=== PATIENT | female | born 1955 | race Caucasian/White ===

== ENCOUNTER 2023-04-09 12:58 | Outpatient (REF) | payer OTHER, SELFPAY ==
[2023-04-09 14:36] LABS: MANUAL DIFF FLAG NO
[2023-04-09 15:17] LABS: Basophils Percent Auto 0.4 % (0-2); Eosinophils Absolute Auto 0.1 X10*3/uL (0.0-0.4); Eosinophils Percent Auto 0.6 % (0-4); Hematocrit 36.5 % (37.0-47.0); Hemoglobin 11.6 g/dl (12.0-16.0); Imm Gran Abs Auto 0.03 X10*3/uL (0.00-0.03); Imm Gran Pct Auto 0.3 % (0.0-0.4); Lymphocytes Absolute Auto 1.7 X10*3/uL (1.2-4.9); Lymphocytes Percent Auto 18.2 % (20-40); Mean Corpuscular HGB Conc 31.8 g/dl (31.0-35.0); Mean Corpuscular Hemoglobin 31.2 pg (27.0-33.0); Mean Corpuscular Volume 98.1 fL (80.0-98.0); Mean Platelet Volume 8.8 fL (9.4-12.3); Monocytes Absolute Auto 0.6 X10*3/uL (0.1-1.2); Monocytes Percent Auto 6.4 % (2-11); Neutrophils Absolute Auto 7.1 x10*3/uL (2.0-8.3); Neutrophils Percent Auto 74.1 % (45-73); Platelet Count 353 X10*3/uL (160-400); Red Blood Count 3.72 X10*6/uL (4.20-5.50); Red Cell Distribution Width 13.2 % (11.0-16.0); White Blood Count 9.6 X10*3/uL (4.8-10.8)
[2023-04-09 16:13] LABS: Erythrocyte Sedimentation Rate 71 MM/HR (0-20)
[2023-04-09 16:28] LABS: Alanine Aminotransferase 18 U/L (0-31); Albumin Level 4.3 g/dL (3.5-5.0); Alkaline Phosphatase 94 U/L (39-117); Anion Gap 17 (12-20); Aspartate Amino Transferase 19 U/L (5-31); Bilirubin Total 0.4 mg/dL (0.0-1.0); Blood Urea Nitrogen 32 mg/dL (9-16); C Reactive Protein 1.15 mg/dL (< or = 0.50); Calcium 10.9 mg/dL (8.4-10.2); Carbon Dioxide 23 mmol/L (22-29); Chloride 101 mmol/L (96-108); Estimated Glomerular Filt Rate 47; Glucose Random 97 mg/dL (60-115); Potassium 4.6 mmol/L (3.3-5.1); Sodium 136 mmol/L (135-145); Total Protein 7.8 g/dL (6.5-8.0)
[2023-04-10 08:23] LABS: HBS Num1 5.65 mIU/mL (0-7.99); HBc Num1 0.07 S/CO (0.00-0.79); HBsAGNum1 0.42 S/CO (0.00-0.99); Hepatitis A Antibody IgM 0.17 Index (0-0.79); Hepatitis B Core Antibody Nonreactive (Nonreactive); Hepatitis B Surface Antigen Negative (Negative); ~HepC Num1 0.06 S/CO (0.00-0.79); ~Hepatitis A Antibody IgM Nonreactive (Nonreactive); ~Hepatitis B Surface Antibody NONREACTIVE (Nonreactive); ~Hepatitis C Antibody Nonreactive (Nonreactive)
[2023-04-12 07:44] LABS: TS Negative Control Passed; TS Panel A 0; TS Panel B 0; TS Positive Control Passed; TSpotTB Negative (Negative)
[2023-04-14 12:43] LABS: Prot Elec - Albumin 4.4 g/dL (3.8-4.8); Prot Elec - Alpha1 0.4 g/dL (0.2-0.3); Prot Elec - Alpha2 0.8 g/dL (0.5-0.9); Prot Elec - Beta 1 0.6 g/dL (0.4-0.6); Prot Elec - Beta 2 0.6 g/dL (0.2-0.5); Prot Elec - Total Protein 7.7 g/dL (6.1-8.1)
[2023-04-15 10:48] LABS: IgA 695 mg/dL (70-320); IgG 931 mg/dL (600-1540); IgM 82 mg/dL (50-300)
== END 2023-04-09 12:59 | disposition home or self-care (01) ==
LOC: HO.LAB 12:58
PROVIDERS: PCP Family Medicine; Visit Provider Student in an Organized Health Care Education/Training Program
DX: Z11.59 Encounter for screening for other viral diseases (principal); Z11.7 Encounter for testing for latent tuberculosis infection; L40.50 Arthropathic psoriasis, unspecified; Z79.620 Long term (current) use of immunosuppressive biologic; Z72.89 Other problems related to lifestyle
CPT/HCPCS: 80053; 80145; 82784; 83520; 84165; 85025; 85652; 86140; 86334; 86481; 86704; 86706; 86709; 86803; 87340

== ENCOUNTER 2023-05-20 11:07 | Outpatient (AMB) | payer OTHER, SELFPAY ==
[2023-05-20 11:12] VITALS: BP 134/68; PULSE 83; TEMP 36.3; O2SAT 96; BMI 40.3
--- NOTE | 2023-05-20 11:12 | MHC.OFFVIS ---
Intake Vital Signs 05/20/23 11:12 Height 5 ft 4 in Weight 234 lb 12.677 oz BMI 40.3 BP 134/68 Blood Pressure Location Rt brachial Position Sitting Pulse 83 Pulse Source Pulse Oximeter Temp 97.3 F Temp Source Skin Pulse Oximetry (%) 96 Intake Visit Reasons: PsA Intake Note: Pt seen today for PsA follow up and test results. Completed prednisone taper and states she felt great. Reports low grade temp in the afternoons. Woods Superintendent Required: No Accompanied by: Self / Same As Patient Allergies amoxicillin [From Augmentin] Allergy (Verified 05/20/23 11:) Rash clavulanic acid [From Augmentin] Allergy (Verified 05/20/23:) Rash pravastatin Adverse Reaction (Verified 05/20/23:) Muscle Weakness HPI HPI Comments History of Present Illness Details 67-year-old female with psoriasis and psoriatic arthritis returns for follow-up. On Humira every other week and methotrexate subcutaneously 50 mg weekly. She stated that since switching methotrexate to subcutaneous, her GI symptoms resolved. She states that she is not doing well overall continues to have pain in both thumbs, pain in both feet. Stated that prednisone taper provided at least 90% relief. She stated that since 2020 she has been having recurrent nasal ulcers that are painful. Initial history: This is a 67-year-old female with psoriatic arthritis who presents as a new patient. Her previous plant and maintenance technician left the practice Patient stated that she was diagnosed with psoriasis since her 20s affecting her ears and scalp. She had an autoimmune arthritis for about 20 years. She used to follow-up at the [facility]. She used to take NSAIDs. And she received numerous injections. She was evaluated by Dr. To over the last 2-3 years and she was started on methotrexate and Humira was shortly added with good relief. Today patient states that she has pain on the outside of her right hip. She also has pain in both thumbs. She mentions that when she was young, after delivery she had pain in both thumbs, they were injected and the pain went away. She had an injection in her right thumb earlier this year under fluoroscopic guidance and according to patient it was not helpful. She continues to have pain in both thumbs. Has minimal psoriasis patches years and inside the ears mentions that oral methotrexate is causes stomach upset. FORMERLY [facility] Medical History Mixed hyperlipidemia GERD (gastroesophageal reflux disease) Hypertension Major depressive disorder Psoriatic arthritis Chronic kidney disease Asthma Surgical History Hx of BSO (bilateral salpingo-oophorectomy) Hx of tubal ligation Hx of section Family History Mother Rectal cancer Cerebral aneurysm Rheumatoid arthritis Father Cerebral aneurysm Psoriasis Brother Hodgkin's lymphoma Asthma Depressive disorder Sister Lung tumor Social History Household Members Other:: Son Alcohol intake: former Patient Tobacco Use Status: Former Tobacco user Current occupational status: employed Current occupation: Nurse Review of Systems Const Reports fatigue ENT Details: Nasal ulcers Musc Reports arthralgias, Reports joint swelling and Reports stiffness Endo Reports fatigue Physical Exam Vital Signs: Last Vital Signs Temp 97.3 F 05/20/23 11:12 Pulse 83 05/20/23 11:12 BP 134/68 05/20/23 11:12 Pulse Ox 96 05/20/23 11:12 BMI result Body Mass Index 40.3 Const General: cooperative, healthy appearing and comfortable Nutritional Appearance: obese Orientation/consciousness: patient oriented x3 Limitations: no limitations HEENT Head: Yes normocephalic and Yes atraumatic Mouth: moist mucous membranes Resp Effort & Inspection: normal respiratory effort and able to speak in complete sentences Auscultation: clear to auscultation bilaterally Cardio Rate: regular rate Rhythm: regular rhythm Neuro General: patient oriented x3 Extrem Other: Positive Ami's test bilaterally Swelling of the radial styloid area bilaterally Right 3rd and 4th MCP swelling and tenderness No PIP swelling or tenderness on the right Positive MCP squeeze test on the left Right 1st 3rd and 4th MTP tenderness Positive MTP squeeze test on the left Normal range of motion of both elbows and shoulders out pain New ridging bilaterally, No nail pitting Normal nailfold capillaroscopy Positive straight leg raise test on the right Right trochanteric bursa area tenderness Negative Smith's test on the right No ankle swelling or tenderness Negative MTP squeeze test Assessment & Plan Assessment & Plan (1) Psoriatic arthritis: Comment: per pt dx around 1999 MTX started around 2019 then Humira shortly added with good results MTX switched to SQ 03/2023 [email or web address] GI upset Code(s): L40.50 - Arthropathic psoriasis, unspecified Plan: This is a 67-year-old female with psoriatic arthritis/seronegative arthritis who presents for follow-up. On methotrexate 15 mg subcutaneously once weekly and Humira every other week. Not doing well with multiple swollen and tender tendons and joints. Will need to switch DMARDs. Discussed risks and benefits of Enbrel. Patient agreed to proceed. Will start prior authorization for Enbrel Continue methotrexate 15 mg subcutaneously once weekly. Would not increase dose due to renal insufficiency Can take prednisone 5-10 mg daily as needed for joint pain Labs before next visit in 3 months (2) De Quervain's tenosynovitis, bilateral: Code(s): M65.4 - Radial styloid tenosynovitis [de Quervain] Plan: Mentions she had a similar condition when she had her children many years ago, she had an injection in the right hand 7-9 months ago without improvement. Patient's symptoms did not improve with rest and with using a splint. It did improve with a prednisone taper. At this point this might be a manifestation of her psoriatic arthritis (3) senior living methotrexate user: Code(s): Z79.631 - senior living (current) use of antimetabolite agent Plan: Monitor safety labs (4) Nasal ulcer: Code(s): J34.0 - Abscess, furuncle and carbuncle of nose Plan: Can potentially be a side effect of methotrexate. A advised patient to start taking Leucovorin 5 mg weekly for 4 weeks and let me know how she feels in 1 month. Can consider adding vitamin A supplementation (5) Immunization counseling: Code(s): Z71.85 - Encounter for immunization safety counseling Plan: Discussed ACR vaccination guidelines for adults with autoimmune rheumatic disease on immune suppression. Patient already received COVID booster. Advised patient to get the new flu vaccine for this season and RSV vaccine. Hold methotrexate 1 dose after vaccination Plan I spent 45 minutes reviewing patient's chart, evaluating patient, ordering diagnostic workup, counseling patient and documenting in the chart Orders: Orders Complete Blood Count Auto Diff 3 Months L40.50 - Arthropathic psoriasis, unspecified, Z79.631 - exterminator helper (current) use of antimetabolite agent Comprehensive Met. Panel 3 Months L40.50 - Arthropathic psoriasis, unspecified, Z79.631 - exterminator helper (current) use of antimetabolite agent C Reactive Protein 3 Months L40.50 - Arthropathic psoriasis, unspecified, Z79.631 - senior living (current) use of antimetabolite agent Erythrocyte Sedimentation Rate 3 Months L40.50 - Arthropathic psoriasis, unspecified, Z79.631 - senior living (current) use of antimetabolite agent Medications: New prednisone 5 mg PO DAILY PRN 30 tabs 1RF pain leucovorin calcium use the day after Methotrexate 5 mg PO QWEEK 4 tabs 1RF Coding Level of Care Code Est Pt Level 5 (96444) Diagnoses Psoriatic arthritis L40.50 De Quervain's tenosynovitis, bilateral M65.4 exterminator helper methotrexate user Z79.631 Nasal ulcer J34.0 Immunization counseling Z71.85
== END 2023-05-20 11:50 | disposition home or self-care (01) ==
PROVIDERS: PCP Physician Assistant; Visit Provider Student in an Organized Health Care Education/Training Program
DX: L40.50 Arthropathic psoriasis, unspecified (principal); M65.4 Radial styloid tenosynovitis [de Quervain]; Z79.631 Long term (current) use of antimetabolite agent; J34.0 Abscess, furuncle and carbuncle of nose; Z71.85 Encounter for immunization safety counseling
CPT/HCPCS: 99215

== ENCOUNTER → 2023-05-20 11:07 | Outpatient (BNVA) | payer OTHER, SELFPAY | PROVIDERS: PCP Physician Assistant; Visit Provider Student in an Organized Health Care Education/Training Program ==

== ENCOUNTER 2023-08-18 16:47 | Outpatient (REF) | payer OTHER, SELFPAY ==
[2023-08-18 16:54] LABS: MANUAL DIFF FLAG NO
[2023-08-18 17:36] LABS: Basophils Absolute Auto 0.1 X10*3/uL (0.0-0.2); Basophils Percent Auto 0.4 % (0-2); Eosinophils Absolute Auto 0.1 X10*3/uL (0.0-0.4); Eosinophils Percent Auto 0.5 % (0-4); Hematocrit 35.5 % (37.0-47.0); Hemoglobin 11.4 g/dl (12.0-16.0); Imm Gran Abs Auto 0.07 X10*3/uL (0.00-0.03); Imm Gran Pct Auto 0.5 % (0.0-0.4); Lymphocytes Absolute Auto 2.4 X10*3/uL (1.2-4.9); Lymphocytes Percent Auto 18.3 % (20-40); Mean Corpuscular HGB Conc 32.1 g/dl (31.0-35.0); Mean Corpuscular Hemoglobin 31.9 pg (27.0-33.0); Mean Corpuscular Volume 99.4 fL (80.0-98.0); Mean Platelet Volume 8.9 fL (9.4-12.3); Monocytes Absolute Auto 0.7 X10*3/uL (0.1-1.2); Monocytes Percent Auto 5.5 % (2-11); Neutrophils Absolute Auto 9.9 x10*3/uL (2.0-8.3); Neutrophils Percent Auto 74.8 % (45-73); Platelet Count 377 X10*3/uL (160-400); Red Blood Count 3.57 X10*6/uL (4.20-5.50); Red Cell Distribution Width 13.5 % (11.0-16.0); White Blood Count 13.2 X10*3/uL (4.8-10.8)
[2023-08-18 18:17] LABS: Alanine Aminotransferase 29 U/L (0-31); Albumin Level 4.5 g/dL (3.5-5.0); Alkaline Phosphatase 73 U/L (39-117); Anion Gap 17 (12-20); Aspartate Amino Transferase 30 U/L (5-31); Bilirubin Total 0.4 mg/dL (0.0-1.0); Blood Urea Nitrogen 35 mg/dL (9-16); C Reactive Protein 1.38 mg/dL (< or = 0.50); Calcium 10.6 mg/dL (8.4-10.2); Carbon Dioxide 26 mmol/L (22-29); Chloride 100 mmol/L (96-108); Estimated Glomerular Filt Rate 42; Glucose Random 86 mg/dL (60-115); Sodium 139 mmol/L (135-145); Total Protein 7.9 g/dL (6.5-8.0)
[2023-08-18 18:19] LABS: Erythrocyte Sedimentation Rate 82 MM/HR (0-20)
== END 2023-08-18 16:48 | disposition home or self-care (01) ==
LOC: HO.LAB 16:47
PROVIDERS: PCP Family Medicine; Visit Provider Student in an Organized Health Care Education/Training Program
DX: L40.50 Arthropathic psoriasis, unspecified (principal); Z79.631 Long term (current) use of antimetabolite agent
CPT/HCPCS: 36415; 80053; 85025; 85652; 86140

== ENCOUNTER 2023-08-20 13:59 | Outpatient (AMB) | payer OTHER, SELFPAY ==
[2023-08-20 14:03] VITALS: BP 132/66; PULSE 88; TEMP 35.9; O2SAT 97; BMI 40.4
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
== END 2023-08-20 14:38 | disposition home or self-care (01) ==
PROVIDERS: PCP Physician Assistant; Visit Provider Student in an Organized Health Care Education/Training Program
DX: L40.50 Arthropathic psoriasis, unspecified (principal); Z79.631 Long term (current) use of antimetabolite agent; J34.0 Abscess, furuncle and carbuncle of nose
CPT/HCPCS: 99215

== ENCOUNTER → 2023-08-20 13:59 | Outpatient (BNVA) | payer OTHER, SELFPAY | PROVIDERS: PCP Physician Assistant; Visit Provider Student in an Organized Health Care Education/Training Program ==

== ENCOUNTER 2023-11-13 17:19 | Outpatient (REF) | payer OTHER, SELFPAY ==
[2023-11-13 17:27] LABS: MANUAL DIFF FLAG NO
[2023-11-13 17:42] LABS: Basophils Absolute Auto 0.1 X10*3/uL (0.0-0.2); Basophils Percent Auto 0.5 % (0-2); Eosinophils Absolute Auto 0.1 X10*3/uL (0.0-0.4); Eosinophils Percent Auto 0.8 % (0-4); Hematocrit 34.2 % (37.0-47.0); Hemoglobin 10.9 g/dl (12.0-16.0); Imm Gran Abs Auto 0.09 X10*3/uL (0.00-0.03); Imm Gran Pct Auto 0.7 % (0.0-0.4); Lymphocytes Percent Auto 15.2 % (20-40); Mean Corpuscular HGB Conc 31.9 g/dl (31.0-35.0); Mean Corpuscular Hemoglobin 31.5 pg (27.0-33.0); Mean Corpuscular Volume 98.8 fL (80.0-98.0); Mean Platelet Volume 8.4 fL (9.4-12.3); Monocytes Absolute Auto 0.9 X10*3/uL (0.1-1.2); Monocytes Percent Auto 6.6 % (2-11); Neutrophils Absolute Auto 10.2 x10*3/uL (2.0-8.3); Neutrophils Percent Auto 76.2 % (45-73); Platelet Count 347 X10*3/uL (160-400); Red Blood Count 3.46 X10*6/uL (4.20-5.50); Red Cell Distribution Width 13.2 % (11.0-16.0); White Blood Count 13.3 X10*3/uL (4.8-10.8)
[2023-11-13 18:34] LABS: Erythrocyte Sedimentation Rate 74 MM/HR (0-20)
[2023-11-13 18:36] LABS: Alanine Aminotransferase 14 U/L (0-31); Albumin Level 4.2 g/dL (3.5-5.0); Alkaline Phosphatase 77 U/L (39-117); Anion Gap 13 (12-20); Aspartate Amino Transferase 20 U/L (5-31); Bilirubin Total 0.3 mg/dL (0.0-1.0); Blood Urea Nitrogen 25 mg/dL (9-16); C Reactive Protein 1.63 mg/dL (< or = 0.50); Calcium 9.6 mg/dL (8.4-10.2); Carbon Dioxide 27 mmol/L (22-29); Chloride 101 mmol/L (96-108); Estimated Glomerular Filt Rate 46; Glucose Random 90 mg/dL (60-115); Potassium 3.8 mmol/L (3.3-5.1); Sodium 137 mmol/L (135-145); Total Protein 7.6 g/dL (6.5-8.0)
== END 2023-11-13 17:20 | disposition home or self-care (01) ==
LOC: HO.LAB 17:19
PROVIDERS: PCP Family Medicine; Visit Provider Student in an Organized Health Care Education/Training Program
DX: L40.50 Arthropathic psoriasis, unspecified (principal); Z79.631 Long term (current) use of antimetabolite agent
CPT/HCPCS: 36415; 80053; 85025; 85652; 86140

== ENCOUNTER 2023-11-19 15:26 | Outpatient (AMB) | payer OTHER, SELFPAY ==
--- NOTE | 2023-11-19 15:27 | MHC.OFFVIS ---
Intake Vital Signs 11/19/23 15:31 Height 5 ft 4 in Weight 234 lb 9.149 oz BMI 40.3 BP 126/72 Blood Pressure Location Rt brachial Position Sitting Pulse 79 Pulse Source Pulse Oximeter Pulse Oximetry (%) 99 Oxygen Delivery Method Room Air Intake Visit Reasons: PsA Intake Note: Patient last seen 08/20/23 presents today for follow up and test results. Psoriasis on scalp. Reports fell in August, did not need to go to hospital Pesticide Use Medical Coordinator Required: No Accompanied by: Self / Same As Patient Allergies amoxicillin [From Augmentin] Allergy (Verified 11/19/23 15:39) Rash clavulanic acid [From Augmentin] Allergy (Verified 11/19/23 15:39) Rash pravastatin Adverse Reaction (Verified 11/19/23 15:39) Muscle Weakness Medication List - Last Reconciled 11/19/23 by Lazara Marcus MD albuterol sulfate 90 mcg/actuation 0 mcg inhalation atorvastatin 10 mg PO DAILY betamethasone, augmented 0.05 % topical PRN chlorthalidone 25 mg PO DAILY duloxetine 120 mg PO DAILY famotidine 40 mg PO BID fluticasone furoate-vilanterol 200-25 mcg/dose (Breo Ellipta) 1 ea inhalation DAILY folic acid 1 mg PO DAILY insulin syringe-needle U-100 (BD Insulin Syringe) Use once weekly with methotrexate leucovorin calcium 5 mg PO QWEEK lisinopril 10 mg PO DAILY loratadine 10 mg PO DAILY meclizine 25 mg PO DAILY PRN methotrexate sodium 15 mg (0.6 mL) subcut QWEEK potassium chloride ER 20 mEq PO DAILY prednisone 5 mg PO DAILY PRN Taltz Autoinjector (ixekizumab) 160 mg (2 X 80 mg auto injectors) at week 0 Then 80 mg every 4 weeks NS trazodone 100 mg PO BEDTIME PRN HPI HPI Comments History of Present Illness Details 68-year-old female with psoriasis and psoriatic arthritis returns for follow-up. She she took the loading dose of Taltz followed by 2 more doses. She remains on methotrexate 15 mg subcutaneously weekly. She also takes prednisone 2 x 5 mg daily. She states that she continues to feel about the same. Continues to have pain in both hands as well as psoriasis rashes behind her ears and in her scalp. He also has right lower back pain. 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 She recovered from COVID towards the beginning of November. Initial history: This is a 67-year-old female with psoriatic arthritis who presents as a new patient. Her previous shift engineer left the practice Patient stated that she was diagnosed with psoriasis since her 20s affecting her ears and scalp. She had an autoimmune arthritis for about 20 years. She used to follow-up at the [facility]. She used to take NSAIDs. And she received numerous injections. She was evaluated by Dr. To over the last 2-3 years and she was started on methotrexate and Humira was shortly added with good relief. Today patient states that she has pain on the outside of her right hip. She also has pain in both thumbs. She mentions that when she was young, after delivery she had pain in both thumbs, they were injected and the pain went away. She had an injection in her right thumb earlier this year under fluoroscopic guidance and according to patient it was not helpful. She continues to have pain in both thumbs. Has minimal psoriasis patches years and inside the ears mentions that oral methotrexate is causes stomach upset. PFS Medical History Mixed hyperlipidemia GERD (gastroesophageal reflux disease) Hypertension Major depressive disorder Psoriatic arthritis Chronic kidney disease Asthma Surgical History Hx of BSO (bilateral salpingo-oophorectomy) Hx of tubal ligation Hx of section Family History Mother Rectal cancer Cerebral aneurysm Rheumatoid arthritis Father Cerebral aneurysm Psoriasis Brother Hodgkin's lymphoma Asthma Depressive disorder Sister Lung tumor Social History Household Members Other:: Son Alcohol intake: former Patient Tobacco Use Status: Former Tobacco user Current occupational status: employed Current [place]: Nurse Review of Systems [facility] [employer] [place] arthralgias, Reports joint swelling and Reports stiffness Skin/Breast Reports rash Physical Exam Vital Signs: Last Vital Signs Pulse 79 11/19/23 15:31 BP 126/72 11/19/23 15:31 Pulse Ox 99 11/19/23 15:31 Oxygen Delivery Method Room Air 11/19/23 15:31 BMI result Body Mass Index 40.3 Const General: cooperative, healthy appearing and comfortable Nutritional Appearance: obese Orientation/consciousness: patient oriented x3 Limitations: no limitations HEENT Head: Yes normocephalic and Yes atraumatic Mouth: moist mucous membranes Resp Effort & Inspection: normal respiratory effort and able to speak in complete sentences Auscultation: clear to auscultation bilaterally Cardio Rate: regular rate Rhythm: regular rhythm Skin Other: Very faint psoriasis patches just behind ears Neuro General: patient oriented x3 Extrem Other: Negative Ami's test today Swelling of the radial styloid area bilaterally All swelling or tenderness of MCPs and PIP is bilaterally Swelling and warmth around the radial styloid area bilaterally Left 1st CMC joint and 1st MCP joint tenderness Right 1st CMC joint and MCP joint tenderness Normal range of motion of both elbows and shoulders out pain New ridging bilaterally, No nail pitting Normal nailfold capillaroscopy Positive straight leg raise test on the right Right trochanteric bursa area tenderness Negative Smith's test on the right No ankle swelling or tenderness Negative MTP squeeze test Assessment & Plan Assessment & Plan (1) Psoriatic arthritis: Comment: per pt dx around 1999 MTX started around 2019 then Humira shortly added with good results MTX switched to SQ 03/2023 d.t GI upset Humira DC 05/2023 due to secondary nonresponse Enbrel 05/2023 -08/2023 ineffective Taltz 08/2023. Code(s): L40.50 - Arthropathic psoriasis, unspecified Plan: This is a 67-year-old female with psoriatic arthritis/seronegative arthritis who presents for follow-up. On methotrexate 15 mg subcutaneously once weekly, Taltz and prednisone 10 mg daily. Continues to be about the same with bilateral de Quervain tenosynovitis. Her symptoms are improved as she takes prednisone 10 mg daily. We discussed multiple options including going back on Humira but advancing it to a weekly dosing, versus Rinvoq, discussed risks and benefits of Rinvoq and mildly increased risks of thrombo embolic events as well as increased risk of infections including shingles. Patient received 1st dose of Shingrix vaccine last year. For now, we will Increase methotrexate to 20 mg subcutaneously weekly Continue with Taltz for now. Can take prednisone 5-10 mg daily as needed for joint pain Referred patient to hand surgery to consider an injection of de Quervain tenosynovitis Labs before next visit in 2 months (2) assisted methotrexate user: Code(s): Z79.631 - criminal court judge (current) use of antimetabolite agent Plan: Monitor safety labs Plan I spent 25 minutes reviewing patient's chart, evaluating patient, ordering diagnostic workup, counseling patient and documenting in the chart Orders: Orders Complete Blood Count Auto Diff 2 Months L40.50 - Arthropathic psoriasis, unspecified, Z79.631 - criminal court judge (current) use of antimetabolite agent Comprehensive Met. Panel 2 Months L40.50 - Arthropathic psoriasis, unspecified, Z79.631 - criminal court judge (current) use of antimetabolite agent C Reactive Protein 2 Months L40.50 - Arthropathic psoriasis, unspecified, Z79.631 - assisted (current) use of antimetabolite agent Erythrocyte Sedimentation Rate 2 Months L40.50 - Arthropathic psoriasis, unspecified, Z79.631 - criminal court judge (current) use of antimetabolite agent Referrals Hand Surgery Referral M65.4 - Radial styloid tenosynovitis [de Quervain] Medications: Changed From methotrexate sodium 15 mg (0.6 mL) subcut QWEEK 2 mL 2RF To methotrexate sodium 20 mg (0.8 mL) subcut QWEEK 4 mL 2RF Coding Level of Care Code Est Pt Level 4 (75029) Diagnoses Psoriatic arthritis L40.50 assisted methotrexate user Z79.631
[2023-11-19 15:31] VITALS: BP 126/72; PULSE 79; O2SAT 99; BMI 40.3
== END 2023-11-19 16:08 | disposition home or self-care (01) ==
PROVIDERS: PCP Physician Assistant; Visit Provider Student in an Organized Health Care Education/Training Program
DX: L40.50 Arthropathic psoriasis, unspecified (principal); Z79.631 Long term (current) use of antimetabolite agent
CPT/HCPCS: 99214

== ENCOUNTER → 2023-11-19 15:26 | Outpatient (BNVA) | payer OTHER, SELFPAY | PROVIDERS: PCP Physician Assistant; Visit Provider Student in an Organized Health Care Education/Training Program ==

== ENCOUNTER 2023-12-23 14:03 | Outpatient (REF) | payer OTHER, SELFPAY ==
--- NOTE | ~2023-12-23 | XR_ITS ---
EXAMINATION: Bilateral hand series CLINICAL INFORMATION: Pain in both hands COMPARISON: None. TECHNIQUE: 5 views of the hands including AP projection of the thumb. FINDINGS: Right hand: First carpometacarpal joint there is advanced osteoarthritis manifested by marked joint space narrowing marginal osteophytes and subchondral cystic change. Remaining bones joints and soft tissues are unremarkable. Left hand: First carpometacarpal joint there is advanced osteoarthritis with marked joint space narrowing marginal osteophytes subchondral sclerosis. Remaining bones joints soft tissues are unremarkable. XR/XR hand LT min 3V IMPRESSION: RIGHT HAND: Advanced osteoarthritis of the first carpometacarpal joint. LEFT HAND: Advanced osteoarthritis of the 1st carpometacarpal joint.
--- NOTE | ~2023-12-23 | XR_ITS ---
EXAMINATION: Bilateral hand series CLINICAL INFORMATION: Pain in both hands COMPARISON: None. TECHNIQUE: 5 views of the hands including AP projection of the thumb. FINDINGS: Right hand: First carpometacarpal joint there is advanced osteoarthritis manifested by marked joint space narrowing marginal osteophytes and subchondral cystic change. Remaining bones joints and soft tissues are unremarkable. Left hand: First carpometacarpal joint there is advanced osteoarthritis with marked joint space narrowing marginal osteophytes subchondral sclerosis. Remaining bones joints soft tissues are unremarkable. XR/XR hand RT min 3V IMPRESSION: RIGHT HAND: Advanced osteoarthritis of the first carpometacarpal joint. LEFT HAND: Advanced osteoarthritis of the 1st carpometacarpal joint.
== END 2023-12-23 14:04 | disposition home or self-care (01) ==
LOC: HO.HOSX 14:03
PROVIDERS: PCP Physician Assistant; Visit Provider Orthopaedic Surgery
DX: M18.11 Unilateral primary osteoarthritis of first carpometacarpal joint, right hand (principal); M18.12 Unilateral primary osteoarthritis of first carpometacarpal joint, left hand
CPT/HCPCS: 20600; 73130; J1010

== ENCOUNTER 2023-12-23 14:03 | Outpatient (AMB) | payer OTHER, SELFPAY ==
[2023-12-23 14:17] VITALS: BMI 40.2
--- NOTE | 2023-12-23 14:17 | A.OFFVIS_ITS ---
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 States she is having pain in bilateral CMC joint. Her right is worse. She has tried injections in the past with little relief. She also has bilateral thumb braces she wears as needed, cramps in hands and states her right index finger locks. She does see a rhuematologist who advise another injection and referred to Orthopedics. She is also having numbness and tingling in both hands. Last EMG was many years ago. Hx of right hand CTR in 1986. Xrays updated in office. Allergies amoxicillin [From Augmentin] Allergy (Verified 12/23/23 14:36) Rash clavulanic acid [From Augmentin] Allergy (Verified 12/23/23 14:36) Rash pravastatin Adverse Reaction (Verified 12/23/23 14:36) Muscle Weakness HPI HPI N/P bilateral hand pain: Details: Allison Turner is a 68 year old right hand dominant woman who present to the office for an evaluation of bilateral thumb pain at the CMC joint. R>L. She reports cramping and muscle spasms in the bilateral thumbs. She states she has only occasional numbness and tingling. She states she has pain at the base of her thumbs that wakes her up at night. She confirms the use of bilateral thumb braces, and she wears them as needed. She denies locking or catching, bilaterally. She is followed by Dr. Marcus for psoriatic arthritis, for which she is taking biologic Taltz, and Methotrexate. She is also on prednisone for her respiratory issues. She is currently working as a nurse. [facility] Medical History Mixed hyperlipidemia GERD (gastroesophageal reflux disease) Hypertension Major depressive disorder Psoriatic arthritis Chronic kidney disease Asthma Surgical History Hx of BSO (bilateral salpingo-oophorectomy) Hx of tubal ligation Hx of section Family History Mother Rectal cancer Cerebral aneurysm Rheumatoid arthritis Father Cerebral aneurysm Psoriasis Brother Hodgkin's lymphoma Asthma Depressive disorder Sister Lung tumor Social History (Updated 12/23/23 @ 14:37 by CAITY Tovar) Household Members Other:: Son Alcohol intake: former Patient Tobacco Use Status: Former Tobacco user Current occupational status: employed Current occupation: Nurse/ right hand Review of Systems Const All systems reviewed & are unremarkable except as noted in HPI and below Physical Exam Vital Signs: BMI result Body Mass Index 40.2 Const General: cooperative, healthy appearing and no acute distress Orientation/consciousness: patient oriented x3 HEENT Head: Yes normocephalic and Yes atraumatic Eyes EOM: EOMs intact bilaterally Resp Effort & Inspection: normal respiratory effort and able to speak in complete sentences Cardio Jugular venous distension: no JVD Skin General skin exam: turgor normal Rashes: no rashes Neuro General: patient oriented x3 Extrem Other: Evaluation of Right and left Upper Extremity: Patient was alert oriented and in no acute distress Most tenderness over the basal joint of the right thumb. Also tender over the basal joint of the left thumb Positive shoulder sign bilaterally. Positive CMC joint grind. No tenderness to palpation over the first dorsal compartment. No tenderness over the MCP joint or the A1 rafi She was able to make a fist and extend all of her digits No locking or catching. Neuro: Median, ulnar, radial nerves motor and sensory intact. No thenar or intrinsic wasting. Vascular: Cap refill brisk. Radiographs: Three views of the right wrist were taken and reviewed by me today in clinic. They show right basal joint osteoarthritis with joint space narrowing, subluxation and osteophyte formation. No fractures. Three views of the left wrist were also taken and reviewed by me today in clinic: They also show left basal joint arthritis with joint space narrowing, subluxation and osteophyte formation. There is also evidence of an old healed left distal radius fracture with satisfactory fracture alignment, though some loss of radial inclination and about 3 degrees of dorsal tilt on the lateral. Office Procedures Fracture Care Details: No fracture, injection Fracture Billing Code: Fracture Billing Code Assessment & Plan Assessment & Plan (1) Arthritis of carpometacarpal (CMC) joint of right thumb: Code(s): M18.11 - Unilateral primary osteoarthritis of first carpometacarpal joint, right hand Category: Medical (2) Arthritis of carpometacarpal (CMC) joint of left thumb: Code(s): M18.12 - Unilateral primary osteoarthritis of first carpometacarpal joint, left hand Category: Medical Plan Assessment & Plan: 1. Right basal joint arthritis: This is her most symptomatic complaint. Injection #1 : The risks and benefits of a steroid injection including but not limited to risk of damage to blood vessels, nerve, tendon, infection, skin bleaching, persistent or worsening pain, and failure to improve symptoms were discussed with the patient and they wish to proceed with the steroid injection. Once consent was obtained the skin over the dorsum of the right basal joint was sterilely prepped. The joint was then injected with a combination of 1 mL of (40 mg/ml} Depo-Medrol and 1% plain Lidocaine. The patient appears to have tolerated the procedure well and with no complications. She had good early relief before leaving clinic today. She knows that they may not have another steroid injection into this joint for least 4 months. 2. Left basal joint arthritis: Disucssed the role of basal joint injections. At this time, she has deferred the left basal joint injection. She knows she can contact us to be seen for treatment of her left basal joint arthritis in the near future. I educated her about basal joint arthritis Discussed the importance of activity modification at length. She was given braces for the bilateral hand. Orders: Orders XR hand RT min 3V Today M79.641 - Pain in right hand XR hand LT min 3V Today M79.642 - Pain in left hand Patient Instructions: Scribed by Ade Forrester medical instructor, for Dr. Nini Meléndez on 12/23/2023 at 3:18 pm, EST. Coding Level of Care Code New Pt Level 3 (24845) Diagnoses Arthritis of carpometacarpal (CMC) joint of right thumb M18.11 Arthritis of carpometacarpal (CMC) joint of left thumb M18.12 CPT Codes Fracture Care - Fracture Billing Code: Fracture Billing Code ([id number])
== END 2023-12-23 15:46 | disposition home or self-care (01) ==
PROVIDERS: PCP Physician Assistant; Visit Provider Orthopaedic Surgery
DX: M18.0 Bilateral primary osteoarthritis of first carpometacarpal joints (principal)
CPT/HCPCS: 20600; 99203

== ENCOUNTER 2023-12-30 10:22 | Outpatient (REF) | payer OTHER, SELFPAY ==
[2023-12-30 10:38] LABS: MANUAL DIFF FLAG NO
[2023-12-30 11:09] LABS: Basophils Percent Auto 0.3 % (0-2); Eosinophils Absolute Auto 0.1 X10*3/uL (0.0-0.4); Eosinophils Percent Auto 0.6 % (0-4); Hematocrit 37.8 % (37.0-47.0); Hemoglobin 11.9 g/dl (12.0-16.0); Imm Gran Abs Auto 0.18 X10*3/uL (0.00-0.03); Imm Gran Pct Auto 1.5 % (0.0-0.4); Lymphocytes Absolute Auto 2.5 X10*3/uL (1.2-4.9); Lymphocytes Percent Auto 20.6 % (20-40); Mean Corpuscular HGB Conc 31.5 g/dl (31.0-35.0); Mean Corpuscular Hemoglobin 31.3 pg (27.0-33.0); Mean Corpuscular Volume 99.5 fL (80.0-98.0); Mean Platelet Volume 8.3 fL (9.4-12.3); Monocytes Absolute Auto 0.9 X10*3/uL (0.1-1.2); Monocytes Percent Auto 7.3 % (2-11); Neutrophils Absolute Auto 8.6 x10*3/uL (2.0-8.3); Neutrophils Percent Auto 69.7 % (45-73); Platelet Count 401 X10*3/uL (160-400); Red Cell Distribution Width 13.9 % (11.0-16.0); White Blood Count 12.3 X10*3/uL (4.8-10.8)
[2023-12-30 11:39] LABS: Erythrocyte Sedimentation Rate 34 MM/HR (0-20)
[2023-12-30 11:42] LABS: Alanine Aminotransferase 19 U/L (0-31); Albumin Level 4.1 g/dL (3.5-5.0); Alkaline Phosphatase 84 U/L (39-117); Anion Gap 15 (12-20); Aspartate Amino Transferase 15 U/L (5-31); Bilirubin Total 0.5 mg/dL (0.0-1.0); Blood Urea Nitrogen 36 mg/dL (9-16); C Reactive Protein 1.28 mg/dL (< or = 0.50); Calcium 9.9 mg/dL (8.4-10.2); Carbon Dioxide 26 mmol/L (22-29); Chloride 99 mmol/L (96-108); Estimated Glomerular Filt Rate 53; Glucose Random 82 mg/dL (60-115); Potassium 3.9 mmol/L (3.3-5.1); Sodium 136 mmol/L (135-145); Total Protein 7.4 g/dL (6.5-8.0)
== END 2023-12-30 10:23 | disposition home or self-care (01) ==
LOC: HO.LAB 10:22
PROVIDERS: PCP Family Medicine; Visit Provider Student in an Organized Health Care Education/Training Program
DX: Z51.81 Encounter for therapeutic drug level monitoring (principal); Z79.631 Long term (current) use of antimetabolite agent
CPT/HCPCS: 36415; 80053; 85025; 85652; 86140

== ENCOUNTER 2023-12-31 13:59 | Outpatient (AMB) | payer OTHER, SELFPAY ==
--- NOTE | 2023-12-31 14:00 | A.OFFVIS_ITS ---
Vital Signs 12/31/23 14:07 Height 5 ft 4 in Weight 232 lb 2.348 oz BMI 39.8 BP 122/64 Blood Pressure Location Rt brachial Position Sitting Pulse 89 Pulse Oximetry (%) 96 Intake Visit Reasons: follow up PSA/FMLA paperwork Intake Note: Patient presents today to discuss FMLA paper work. Last seen November,. Allergies amoxicillin [From Augmentin] Allergy (Verified 12/31/23 14:08) Rash clavulanic acid [From Augmentin] Allergy (Verified 12/31/23 14:08) Rash pravastatin Adverse Reaction (Verified 12/31/23 14:08) Muscle Weakness Medication List - Last Reconciled 12/31/23 by Lazara Marcus MD albuterol sulfate 90 mcg/actuation 0 mcg inhalation atorvastatin 10 mg PO DAILY betamethasone, augmented 0.05 % topical PRN chlorthalidone 25 mg PO DAILY duloxetine 120 mg PO DAILY famotidine 40 mg PO BID fluticasone furoate-vilanterol 200-25 mcg/dose (Breo Ellipta) 1 ea inhalation DAILY folic acid 1 mg PO DAILY insulin syringe-needle U-100 (BD Insulin Syringe) Use once weekly with methotrexate leucovorin calcium 5 mg PO QWEEK lisinopril 10 mg PO DAILY loratadine 10 mg PO DAILY meclizine 25 mg PO DAILY PRN methotrexate sodium 20 mg (0.8 mL) subcut QWEEK potassium chloride ER 20 mEq PO DAILY prednisone 5 mg PO DAILY PRN Taltz Autoinjector (ixekizumab) 160 mg (2 X 80 mg auto injectors) at week 0 Then 80 mg every 4 weeks NS trazodone 100 mg PO BEDTIME PRN HPI Comments Details: 68-year-old female with psoriasis and psoriatic arthritis returns for follow-up. She is on methotrexate 20 mg weekly subcutaneously and Taltz 80 mg monthly. Over the last 2 months she has had a respiratory infection and was treated with azithromycin and prednisone 40 mg daily. This seems to have resolved. She was also evaluated by Dr. Meléndez and received right 1st CMC joint steroid injection with significant relief. He is scheduled for injection of the left side in 2 weeks. She mentions that she had nasal ulcers as soon as she increase her methotrexate dose. She states that she is doing quite well otherwise. She has not on prednisone now. No complaints today Initial history: This is a 67-year-old female with psoriatic arthritis who presents as a new patient. Her previous lube worker left the practice Patient stated that she was diagnosed with psoriasis since her 20s affecting her ears and scalp. She had an autoimmune arthritis for about 20 years. She used to follow-up at the [facility]. She used to take NSAIDs. And she received numerous injections. She was evaluated by Dr. To over the last 2-3 years and she was started on methotrexate and Humira was shortly added with good relief. Today patient states that she has pain on the outside of her right hip. She also has pain in both thumbs. She mentions that when she was young, after delivery she had pain in both thumbs, they were injected and the pain went away. She had an injection in her right thumb earlier this year under fluoroscopic guidance and according to patient it was not helpful. She continues to have pain in both thumbs. Has minimal psoriasis patches years and inside the ears mentions that oral methotrexate is causes stomach upset. PFS Medical History Mixed hyperlipidemia GERD (gastroesophageal reflux disease) Hypertension Major depressive disorder Psoriatic arthritis Chronic kidney disease Asthma Surgical History Hx of BSO (bilateral salpingo-oophorectomy) Hx of tubal ligation Hx of section Family History Mother Rectal cancer Cerebral aneurysm Rheumatoid arthritis Father Cerebral aneurysm Psoriasis Brother Hodgkin's lymphoma Asthma Depressive disorder Sister Lung tumor Social History Household Members Other:: Son Alcohol intake: former Patient Tobacco Use Status: Former Tobacco user Current occupational status: employed Current occupation: Nurse/ right hand Review of Systems Musc Denies arthralgias, Denies joint swelling and Denies stiffness Physical Exam Vital Signs: Last Vital Signs Pulse 89 12/31/23 14:07 BP 122/64 12/31/23 14:07 Pulse Ox 96 12/31/23 14:07 BMI result Body Mass Index 39.8 Const General: cooperative, healthy appearing and comfortable Nutritional Appearance: obese Orientation/consciousness: patient oriented x3 Limitations: no limitations HEENT Head: Yes normocephalic and Yes atraumatic Mouth: moist mucous membranes Resp Effort & Inspection: normal respiratory effort and able to speak in complete sentences Auscultation: clear to auscultation bilaterally Cardio Rate: regular rate Rhythm: regular rhythm Skin Other: Very faint psoriasis patches behind right ear Neuro General: patient oriented x3 Extrem Other: Negative Ami's test today No active synovitis today No CMC joint tenderness today bilaterally Normal range of motion of both elbows and shoulders out pain Normal nailfold capillaroscopy Assessment & Plan Assessment & Plan (1) Psoriatic arthritis: Comment: per pt dx around 1999 MTX started around 2019 then Humira shortly added with good results MTX switched to SQ 03/2023 d.t GI upset Humira DC 05/2023 due to secondary nonresponse Enbrel 05/2023 -08/2023 ineffective Taltz 08/2023. Code(s): L40.50 - Arthropathic psoriasis, unspecified Category: Medical Plan: This is a 67-year-old female with psoriatic arthritis/seronegative arthritis who presents for follow-up. On methotrexate 20 mg subcutaneously once weekly, Taltz 80 mg q.4 weeks. Doing much better overall however patient received prednisone for a recent respiratory infection also had right 1st CMC joint steroid injection. Continue methotrexate 20 mg subcutaneously weekly and Taltz 80 mg q.4 weeks. Increase leucovorin to 10 mg weekly due to development of nasal ulcers. Continue folic acid 1 mg daily Patient missed a few days of work due to her respiratory infection. FMLA form completed today Labs before next visit in 3 months (2) senior care methotrexate user: Code(s): Z79.631 - senior care (current) use of antimetabolite agent Category: Medical Plan: Monitor safety labs Plan I spent 45 minutes reviewing patient's chart, evaluating patient, ordering diagnostic workup, completing FMLA form, counseling patient and documenting in the chart Orders: Orders Complete Blood Count Auto Diff 3 Months Z79.631 - exterminator termite (current) use of antimetabolite agent Erythrocyte Sedimentation Rate 3 Months Z79.631 - exterminator termite (current) use of antimetabolite agent Comprehensive Met. Panel 3 Months Z79.631 - senior care (current) use of antimetabolite agent C Reactive Protein 3 Months Z79.631 - senior care (current) use of antimetabolite agent Medications: Changed From leucovorin calcium 5 mg PO QWEEK 12 tabs 1RF To leucovorin calcium 10 mg (2 x 5 mg) PO QWEEK 24 tabs 1RF Coding Level of Care Code Est Pt Level 5 (71948) Diagnoses Psoriatic arthritis L40.50 senior care methotrexate user Z79.631
[2023-12-31 14:07] VITALS: BP 122/64; PULSE 89; O2SAT 96; BMI 39.8
== END 2023-12-31 14:43 | disposition home or self-care (01) ==
PROVIDERS: PCP Physician Assistant; Visit Provider Student in an Organized Health Care Education/Training Program
DX: L40.50 Arthropathic psoriasis, unspecified (principal); Z79.631 Long term (current) use of antimetabolite agent
CPT/HCPCS: 99214

== ENCOUNTER → 2023-12-31 13:59 | Outpatient (BNVA) | payer OTHER, SELFPAY | PROVIDERS: PCP Physician Assistant; Visit Provider Student in an Organized Health Care Education/Training Program ==

== ENCOUNTER 2024-02-17 12:31 | Outpatient (AMB) | payer OTHER, SELFPAY ==
--- NOTE | 2024-02-17 12:42 | A.OFFVIS_ITS ---
Vital Signs 02/17/24 12:43 Height 5 ft 4 in Weight 232 lb BMI 39.8 Intake Visit Reasons: OV-Left hand injection Intake Note: Allison a 68 year old Allergies amoxicillin [From Augmentin] Allergy (Verified 12/31/23 14:08) Rash clavulanic acid [From Augmentin] Allergy (Verified 12/31/23 14:08) Rash pravastatin Adverse Reaction (Verified 12/31/23 14:08) Muscle Weakness HPI HPI OV-Left hand injection: Details: Allison is a 68 year old right hand dominant woman who returns to discuss her left basal joint osteoarthritis. She is S/P right basal joint injection on 12/23/23, with good relief. She continues to complain of pain at the base of her left thumb, worse with pinching or gripping activities. She confirms the use of bilateral thumb braces, and she wears them as needed. She is followed by Dr. Marcus for psoriatic arthritis, for which she is taking biologic Taltz, and Methotrexate. She is currently working as a nurse. [facility] Medical History Mixed hyperlipidemia GERD (gastroesophageal reflux disease) Hypertension Major depressive disorder Psoriatic arthritis Chronic kidney disease Asthma Surgical History Hx of BSO (bilateral salpingo-oophorectomy) Hx of tubal ligation Hx of section Family History Mother Rectal cancer Cerebral aneurysm Rheumatoid arthritis Father Cerebral aneurysm Psoriasis Brother Hodgkin's lymphoma Asthma Depressive disorder Sister Lung tumor Social History Household Members Other:: Son Alcohol intake: former Patient Tobacco Use Status: Former Tobacco user Current occupational status: employed Current occupation: Nurse/ right hand Review of Systems Const All systems reviewed & are unremarkable except as noted in HPI and below Physical Exam Vital Signs: BMI result Body Mass Index 39.8 Const General: no acute distress and alert Orientation/consciousness: patient oriented x3 Neuro General: patient oriented x3 Extrem Other: Evaluation of Left Upper Extremity: The patient is alert, oriented, and in no acute distress Neuro: Median, Ulnar, Radial nerves motor and sensory intact and sensation is normal to the tips of all digits Vascular: Cap refill brisk ROM: Most tender over the basal joint of the left thumb Positive shoulder sign Positive CMC joint grind. No tenderness to palpation over the first dorsal compartment. No tenderness over the MCP joint or the A1 rafi She was able to make a fist and extend all of her digits No locking or catching. Radiographs: 3 views of the right wrist from 12/23/23 were reviewed by me today in clinic. They show right basal joint osteoarthritis with joint space narrowing, subluxation and osteophyte formation. No fractures. 3 views of the left wrist from 12/23/23 were reviewed by me today in clinic: They also show left basal joint arthritis with joint space narrowing, subluxation and osteophyte formation. There is also evidence of an old healed left distal radius fracture with satisfactory fracture alignment, though some loss of radial inclination and about 3 degrees of dorsal tilt on the lateral. Psych Appearance: grossly normal Affect: normal affect Attitude: cooperative Office Procedures Fracture Care Details: No fracture, injection Fracture Billing Code: Fracture Billing Code Assessment & Plan Assessment & Plan (1) Arthritis of carpometacarpal (CMC) joint of right thumb: Code(s): M18.11 - Unilateral primary osteoarthritis of first carpometacarpal joint, right hand Category: Medical (2) Arthritis of carpometacarpal (CMC) joint of left thumb: Code(s): M18.12 - Unilateral primary osteoarthritis of first carpometacarpal joint, left hand Category: Medical Plan Assessment & Plan: 1. Right basal joint arthritis, S/P injection Date of injection: 12/23/23 She found good relief from her injection & bracing I discussed activity modification, they should limit or avoid any heavy or repetitive pinching or gripping activities She will continue to wear her comfort cool brace with daily activity She may repeat no sooner than 2 months from now 2. Left basal joint arthritis I educated her about this condition I discussed operative and non-operative treatment options The patient would like to proceed with an injection I discussed activity modification, they should limit or avoid any heavy or repetitive pinching or gripping activities She will continue to wear her comfort cool brace with daily activity Injection #1: The risks and benefits of a steroid injection including but not limited to risk of damage to blood vessels, nerve, tendon, infection, skin bleaching, persistent or worsening pain, and failure to improve symptoms were discussed with the patient and they wish to proceed with the steroid injection. Once consent was obtained the skin over the dorsum of the Left basal joint was sterilely prepped. The joint was then injected with a combination of 1 mL of (40 mg/ml} Depo-Medrol and 1% plain Lidocaine. The patient appears to have tolerated the procedure well and with no complications. She had good early relief before leaving clinic today. She knows that they may not have another steroid injection into this joint for least 4 months. Scribed for Nini Meléndez MD by Arie Jacinto dental assistant medical assistant, on 02/17/24 at 1:00 PM, EST. Coding Level of Care Code Est Pt Level 3 (89262) Diagnoses Arthritis of carpometacarpal (CMC) joint of right thumb M18.11 Arthritis of carpometacarpal (CMC) joint of left thumb M18.12 CPT Codes Fracture Care - Fracture Billing Code: Fracture Billing Code ([id number])
[2024-02-17 12:43] VITALS: BMI 39.8
== END 2024-02-17 13:47 | disposition home or self-care (01) ==
PROVIDERS: PCP Physician Assistant; Visit Provider Orthopaedic Surgery
DX: M18.0 Bilateral primary osteoarthritis of first carpometacarpal joints (principal)
CPT/HCPCS: 20600; 99213

== ENCOUNTER → 2024-02-17 12:31 | Outpatient (BNVA) | payer OTHER, SELFPAY | PROVIDERS: PCP Physician Assistant; Visit Provider Orthopaedic Surgery | DX: M18.0 Bilateral primary osteoarthritis of first carpometacarpal joints (principal) | CPT/HCPCS: 20600; J1010 ==

== ENCOUNTER 2024-03-08 15:30 | Outpatient (REF) | payer OTHER, SELFPAY ==
[2024-03-08 15:52] LABS: MANUAL DIFF FLAG NO
[2024-03-08 17:42] LABS: Basophils Absolute Auto 0.1 X10*3/uL (0.0-0.2); Basophils Percent Auto 0.5 % (0-2); Eosinophils Percent Auto 0.2 % (0-4); Hematocrit 35.3 % (37.0-47.0); Hemoglobin 11.2 g/dl (12.0-16.0); Imm Gran Abs Auto 0.05 X10*3/uL (0.00-0.03); Imm Gran Pct Auto 0.5 % (0.0-0.4); Lymphocytes Absolute Auto 1.7 X10*3/uL (1.2-4.9); Lymphocytes Percent Auto 15.7 % (20-40); Mean Corpuscular HGB Conc 31.7 g/dl (31.0-35.0); Mean Corpuscular Hemoglobin 31.7 pg (27.0-33.0); Mean Platelet Volume 9.4 fL (9.4-12.3); Monocytes Absolute Auto 0.6 X10*3/uL (0.1-1.2); Monocytes Percent Auto 5.2 % (2-11); Neutrophils Absolute Auto 8.4 x10*3/uL (2.0-8.3); Neutrophils Percent Auto 77.9 % (45-73); Platelet Count 416 X10*3/uL (160-400); Red Blood Count 3.53 X10*6/uL (4.20-5.50); Red Cell Distribution Width 14.1 % (11.0-16.0); White Blood Count 10.8 X10*3/uL (4.8-10.8)
[2024-03-08 18:19] LABS: Alanine Aminotransferase 20 U/L (0-31); Albumin Level 4.6 g/dL (3.5-5.0); Alkaline Phosphatase 72 U/L (39-117); Anion Gap 14 (12-20); Aspartate Amino Transferase 29 U/L (5-31); Bilirubin Total 0.4 mg/dL (0.0-1.0); Blood Urea Nitrogen 17 mg/dL (9-16); C Reactive Protein 1.35 mg/dL (< or = 0.50); Calcium 10.9 mg/dL (8.4-10.2); Carbon Dioxide 29 mmol/L (22-29); Chloride 100 mmol/L (96-108); Estimated Glomerular Filt Rate 45; Glucose Random 93 mg/dL (60-115); Potassium 4.4 mmol/L (3.3-5.1); Sodium 139 mmol/L (135-145)
[2024-03-08 18:26] LABS: Erythrocyte Sedimentation Rate 66 MM/HR (0-20)
== END 2024-03-08 15:31 | disposition home or self-care (01) ==
LOC: HO.LAB 15:30
PROVIDERS: PCP Family Medicine; Visit Provider Student in an Organized Health Care Education/Training Program
DX: L40.50 Arthropathic psoriasis, unspecified (principal); Z79.631 Long term (current) use of antimetabolite agent
CPT/HCPCS: 36415; 80053; 85025; 85652; 86140

== ENCOUNTER 2024-03-16 13:34 | Outpatient (AMB) | payer OTHER, SELFPAY ==
[2024-03-16 13:36] VITALS: BP 122/74; PULSE 76; O2SAT 100; BMI 39.4
--- NOTE | 2024-03-16 13:36 | MHC.OFFVIS ---
Vital Signs 03/16/24 13:36 Height 5 ft 4 in Weight 229 lb 11.547 oz BMI 39.4 BP 122/74 Blood Pressure Location Lt brachial Position Sitting Pulse 76 Pulse Source Pulse Oximeter Pulse Oximetry (%) 100 Oxygen Delivery Method Room Air Intake Visit Reasons: PsA Intake Note: Patient was seen by Doctor Lazara Marcus on 12/31/23. Presents today for PsA follow up and test results. Allergies amoxicillin [From Augmentin] Allergy (Verified 03/16/24 13:40) Rash clavulanic acid [From Augmentin] Allergy (Verified 03/16/24 13:40) Rash pravastatin Adverse Reaction (Verified 03/16/24 13:40) Muscle Weakness Medication List - Last Reconciled 03/16/24 by Lazara Marcus MD albuterol sulfate 90 mcg/actuation 0 mcg inhalation atorvastatin 10 mg PO DAILY betamethasone, augmented 0.05 % topical PRN chlorthalidone 25 mg PO DAILY duloxetine 120 mg PO DAILY famotidine 40 mg PO BID fluticasone furoate-vilanterol 200-25 mcg/dose (Breo Ellipta) 1 ea inhalation DAILY folic acid TAKE 1 TABLET ORALLY DAILY insulin syringe-needle U-100 Use once weekly with methotrexate leucovorin calcium 10 mg (2 x 5 mg) PO QWEEK lisinopril 10 mg PO DAILY loratadine 10 mg PO DAILY meclizine 25 mg PO DAILY PRN methotrexate sodium 20 mg (0.8 mL) subcut QWEEK potassium chloride ER 20 mEq PO DAILY prednisone 5 mg PO DAILY PRN Taltz Autoinjector (ixekizumab) 160 mg (2 X 80 mg auto injectors) at week 0 Then 80 mg every 4 weeks NS trazodone 100 mg PO BEDTIME PRN HPI Comments Details: 68-year-old female with psoriasis and psoriatic arthritis returns for follow-up. She is on methotrexate 20 mg weekly subcutaneously and Taltz 80 mg monthly. She states that she is doing quite well overall in terms of her pains and stiffness. She has been much less stiff and was able to do much more stuff around the house. She received a steroid injection in her right thumb by Dr. Meléndez last month. She states that the injection was helpful. She notices intermittent locking of her right thumb and right index fingers. She has not noticed any swollen joints. She has mild psoriasis rashes inside and behind her right ear. She is recovering from an ear infection, she received amoxicillin last week. She continues to have the nasal ulcers, despite taking Leucovorin 10 mg weekly. Initial history: This is a 67-year-old female with psoriatic arthritis who presents as a new patient. Her previous armhole presser left the practice Patient stated that she was diagnosed with psoriasis since her 20s affecting her ears and scalp. She had an autoimmune arthritis for about 20 years. She used to follow-up at the [facility]. She used to take NSAIDs. And she received numerous injections. She was evaluated by Dr. To over the last 2-3 years and she was started on methotrexate and Humira was shortly added with good relief. Today patient states that she has pain on the outside of her right hip. She also has pain in both thumbs. She mentions that when she was young, after delivery she had pain in both thumbs, they were injected and the pain went away. She had an injection in her right thumb earlier this year under fluoroscopic guidance and according to patient it was not helpful. She continues to have pain in both thumbs. Has minimal psoriasis patches years and inside the ears mentions that oral methotrexate is causes stomach upset. [facility] Medical History Mixed hyperlipidemia GERD (gastroesophageal reflux disease) Hypertension Major depressive disorder Psoriatic arthritis Chronic kidney disease Asthma Surgical History Hx of BSO (bilateral salpingo-oophorectomy) Hx of tubal ligation Hx of section Family History Mother Rectal cancer Cerebral aneurysm Rheumatoid arthritis Father Cerebral aneurysm Psoriasis Brother Hodgkin's lymphoma Asthma Depressive disorder Sister Lung tumor Social History Household Members Other:: Son Alcohol intake: former Patient Tobacco Use Status: Former Tobacco user Current occupational status: employed Current occupation: Nurse/ right hand Review of Systems [facility] [employer] [facility] [place] Reports arthralgias, Denies joint swelling, Reports limited range of motion and Reports stiffness Skin/Breast Details: Psoriasis rashes on right ear Physical Exam Vital Signs: Last Vital Signs Pulse 76 03/16/24 13:36 BP 122/74 08/07/24 13:36 Pulse Ox 100 03/16/24 13:36 Oxygen Delivery Method Room Air 03/16/24 13:36 BMI result Body Mass Index 39.4 Const General: cooperative, healthy appearing and comfortable Nutritional Appearance: obese Orientation/consciousness: patient oriented x3 Limitations: no limitations HEENT Head: Yes normocephalic and Yes atraumatic Mouth: moist mucous membranes Resp Effort & Inspection: normal respiratory effort and able to speak in complete sentences Auscultation: clear to auscultation bilaterally Cardio Rate: regular rate Rhythm: regular rhythm Skin Other: Very faint psoriasis patches behind right ear Neuro General: patient oriented x3 Extrem Other: Negative Ami's test today No active synovitis today No CMC joint tenderness today bilaterally Triggering of right thumb Normal range of motion of both elbows and shoulders out pain Normal nailfold capillaroscopy Assessment & Plan Assessment & Plan (1) Psoriatic arthritis: Comment: per pt dx around 1999 MTX started around 2019 then Humira shortly added with good results MTX switched to SQ 03/2023 d.t GI upset Humira DC 05/2023 due to secondary nonresponse Enbrel 05/2023 -08/2023 ineffective Taltz 08/2023. Effective Code(s): L40.50 - Arthropathic psoriasis, unspecified Category: Medical Plan: This is a 68-year-old female with psoriatic arthritis who presents for follow-up. On methotrexate 20 mg subcutaneously once weekly, Taltz 80 mg q.4 weeks. Patient has used prednisone only sparingly since last visit. Upon evaluation today there is no active synovitis. Patient continues to have nasal ulcers despite increasing her leucovorin to 10 mg weekly. Reduce methotrexate to 15 mg weekly Continue leucovorin 10 mg weekly and folic acid 1 mg daily Continue Taltz Labs before next visit in 3 months (2) superintendent terminal methotrexate user: Code(s): Z79.631 - superintendent terminal (current) use of antimetabolite agent Category: Medical Plan: Monitor safety labs (3) Nasal ulcer: Code(s): J34.0 - Abscess, furuncle and carbuncle of nose Category: Medical Plan: Since these nasal ulcers are not resolving, advised patient to seek evaluation by ENT and consider a biopsy (4) Trigger thumb, right thumb: Code(s): M65.311 - Trigger thumb, right thumb Category: Medical Plan: Patient describing symptoms of trigger finger affecting dairy right thumb and right index, on exam she has triggering of the right thumb, advised patient to follow-up with Dr. Meléndez Plan I spent 45 minutes reviewing patient's chart, evaluating patient, ordering diagnostic workup, counseling patient and documenting in the chart Orders: Orders Complete Blood Count Auto Diff 3 Months L40.50 - Arthropathic psoriasis, unspecified, Z79.631 - [facility] (current) use of antimetabolite agent Comprehensive Met. Panel 3 Months L40.50 - Arthropathic psoriasis, unspecified, Z79.631 - [facility] (current) use of antimetabolite agent Erythrocyte Sedimentation Rate 3 Months L40.50 - Arthropathic psoriasis, unspecified, Z79.631 - superintendent terminal (current) use of antimetabolite agent C Reactive Protein 3 Months L40.50 - Arthropathic psoriasis, unspecified, Z79.631 - superintendent terminal (current) use of antimetabolite agent Medications: Changed From methotrexate sodium 20 mg (0.8 mL) subcut QWEEK 12 mL 1RF To methotrexate sodium 15 mg (0.6 mL) subcut QWEEK 12 mL 1RF From Taltz Autoinjector (ixekizumab) 160 mg (2 X 80 mg auto injectors) at week 0 Then 80 mg every 4 weeks 2 mL 2RF NS L40.50 - Arthropathic psoriasis, unspecified To Taltz Autoinjector (ixekizumab) 80 mg subcut Q4W 1 mL 3RF NS L40.50 - Arthropathic psoriasis, unspecified Refilled leucovorin calcium 10 mg (2 x 5 mg) PO QWEEK 24 tabs 1RF Coding Level of Care Code Est Pt Level 5 (10240) Complex EM visit Add On G2211 Diagnoses Psoriatic arthritis L40.50 [facility] methotrexate user Z79.631 Nasal ulcer J34.0 Trigger thumb, right thumb M65.311
== END 2024-03-16 14:20 | disposition home or self-care (01) ==
PROVIDERS: PCP Family Medicine; Referring Provider Family Medicine; Visit Provider Student in an Organized Health Care Education/Training Program
DX: L40.50 Arthropathic psoriasis, unspecified (principal); Z79.631 Long term (current) use of antimetabolite agent; J34.0 Abscess, furuncle and carbuncle of nose; M65.311 Trigger thumb, right thumb
CPT/HCPCS: 99215

== ENCOUNTER → 2024-03-16 13:34 | Outpatient (BNVA) | payer OTHER, SELFPAY | PROVIDERS: PCP Family Medicine; Visit Provider Student in an Organized Health Care Education/Training Program ==

== ENCOUNTER 2024-06-15 11:41 | Outpatient (REF) | payer OTHER, SELFPAY ==
[2024-06-15 12:17] LABS: MANUAL DIFF FLAG NO
[2024-06-15 12:54] LABS: Basophils Absolute Auto 0.1 X10*3/uL (0.0-0.2); Basophils Percent Auto 0.4 % (0-2); Eosinophils Absolute Auto 0.1 X10*3/uL (0.0-0.4); Eosinophils Percent Auto 0.5 % (0-4); Hemoglobin 11.2 g/dl (12.0-16.0); Imm Gran Abs Auto 0.07 X10*3/uL (0.00-0.03); Imm Gran Pct Auto 0.5 % (0.0-0.4); Lymphocytes Absolute Auto 1.8 X10*3/uL (1.2-4.9); Lymphocytes Percent Auto 14.1 % (20-40); Mean Corpuscular HGB Conc 32.9 g/dl (31.0-35.0); Mean Corpuscular Hemoglobin 31.9 pg (27.0-33.0); Mean Corpuscular Volume 96.9 fL (80.0-98.0); Mean Platelet Volume 8.8 fL (9.4-12.3); Monocytes Absolute Auto 0.7 X10*3/uL (0.1-1.2); Monocytes Percent Auto 5.3 % (2-11); Neutrophils Absolute Auto 10.1 x10*3/uL (2.0-8.3); Neutrophils Percent Auto 79.2 % (45-73); Platelet Count 350 X10*3/uL (160-400); Red Blood Count 3.51 X10*6/uL (4.20-5.50); White Blood Count 12.8 X10*3/uL (4.8-10.8)
[2024-06-15 13:18] LABS: Alanine Aminotransferase 24 U/L (0-31); Albumin Level 4.2 g/dL (3.5-5.0); Alkaline Phosphatase 93 U/L (39-117); Anion Gap 14 (12-20); Aspartate Amino Transferase 29 U/L (5-31); Bilirubin Total 0.4 mg/dL (0.0-1.0); Blood Urea Nitrogen 21 mg/dL (9-16); Calcium 10.2 mg/dL (8.4-10.2); Carbon Dioxide 26 mmol/L (22-29); Chloride 102 mmol/L (96-108); Estimated Glomerular Filt Rate 58; Glucose Random 105 mg/dL (60-115); Potassium 4.2 mmol/L (3.3-5.1); Sodium 138 mmol/L (135-145); Total Protein 7.7 g/dL (6.5-8.0)
[2024-06-15 13:33] LABS: Erythrocyte Sedimentation Rate 68 MM/HR (0-20)
== END 2024-06-15 11:42 | disposition home or self-care (01) ==
LOC: HO.LAB 11:41
PROVIDERS: PCP Family Medicine; Visit Provider Student in an Organized Health Care Education/Training Program
DX: Z79.631 Long term (current) use of antimetabolite agent (principal); L40.50 Arthropathic psoriasis, unspecified
CPT/HCPCS: 36415; 80053; 85025; 85652; 86140

== ENCOUNTER 2024-06-16 15:56 | Outpatient (AMB) | payer OTHER, SELFPAY ==
[2024-06-16 16:00] VITALS: BP 124/62; PULSE 80; O2SAT 99; BMI 38.0
--- NOTE | 2024-06-16 16:00 | A.OFFVIS_ITS ---
Vital Signs 06/16/24 16:00 Height 5 ft 4 in Weight 221 lb 5.506 oz BMI 38.0 BP 124/62 Blood Pressure Location Lt brachial Position Sitting Pulse 80 Pulse Source Pulse Oximeter Pulse Oximetry (%) 99 Oxygen Delivery Method Room Air Intake Visit Reasons: PsA Intake Note: Patient last seen by Doctor Lazara Marcus on 03/16/24. Presents today for PsA follow up and test results. Allergies amoxicillin [From Augmentin] Allergy (Verified 06/16/24 16:02) Rash clavulanic acid [From Augmentin] Allergy (Verified 06/16/24 16:02) Rash pravastatin Adverse Reaction (Verified 06/16/24 16:02) Muscle Weakness Medication List - Last Reconciled 06/16/24 by Lazara Marcus MD albuterol sulfate 90 mcg/actuation 0 mcg inhalation atorvastatin 10 mg PO DAILY betamethasone, augmented 0.05 % topical PRN chlorthalidone 25 mg PO DAILY duloxetine 120 mg PO DAILY famotidine 40 mg PO BID fluticasone furoate-vilanterol 200-25 mcg/dose (Breo Ellipta) 1 ea inhalation DAILY folic acid TAKE 1 TABLET ORALLY DAILY insulin syringe-needle U-100 Use once weekly with methotrexate leucovorin calcium 5 mg PO QWEEK lisinopril 10 mg PO DAILY loratadine 10 mg PO DAILY meclizine 25 mg PO DAILY PRN methotrexate sodium 15 mg (0.6 mL) subcut QWEEK potassium chloride ER 20 mEq PO DAILY prednisone 5 mg PO DAILY PRN Taltz Autoinjector (ixekizumab) 80 mg subcut Q4W NS trazodone 100 mg PO BEDTIME PRN HPI Comments Details: 68-year-old female with psoriasis and psoriatic arthritis returns for follow-up. She is on methotrexate 15 mg weekly subcutaneously and Taltz 80 mg monthly. She states that she had a colonoscopy about 2 weeks ago. She was told that she was found to have a benign polyp. She has been having repeated right ear blockages and she was referred to see an ENT. Her psoriasis has been worse, e specially behind her right ear and inside her ear. She was prescribed ear antibiotics with steroids with some improvement. Her nasal ulcer improved Initial history: This is a 67-year-old female with psoriatic arthritis who presents as a new patient. Her previous entertainment musician left the practice Patient stated that she was diagnosed with psoriasis since her 20s affecting her ears and scalp. She had an autoimmune arthritis for about 20 years. She used to follow-up at the [facility]. She used to take NSAIDs. And she received numerous injections. She was evaluated by Dr. To over the last 2-3 years and she was started on methotrexate and Humira was shortly added with good relief. Today patient states that she has pain on the outside of her right hip. She also has pain in both thumbs. She mentions that when she was young, after delivery she had pain in both thumbs, they were injected and the pain went away. She had an injection in her right thumb earlier this year under fluoroscopic guidance and according to patient it was not helpful. She continues to have pain in both thumbs. Has minimal psoriasis patches years and inside the ears mentions that oral methotrexate is causes stomach upset. [facility] Medical History Mixed hyperlipidemia GERD (gastroesophageal reflux disease) Hypertension Major depressive disorder Psoriatic arthritis Chronic kidney disease Asthma Surgical History Hx of BSO (bilateral salpingo-oophorectomy) Hx of tubal ligation Hx of section Family History Mother Rectal cancer Cerebral aneurysm Rheumatoid arthritis Father Cerebral aneurysm Psoriasis Brother Hodgkin's lymphoma Asthma Depressive disorder Sister Lung tumor Social History Household Members Other:: Son Alcohol intake: former Patient Tobacco Use Status: Former Tobacco user Current occupational status: employed 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 Reproductive History Menstrual Total pregnancies: 3 Number of Living Children: 2 Ab induced: 1 Review of Systems [facility] Reports arthralgias, Denies joint swelling, Reports limited range of motion and Reports stiffness Skin/Breast Details: Psoriasis rashes on right ear Physical Exam Vital Signs: Last Vital Signs Pulse 80 06/16/24 16:00 BP 124/62 06/16/24 16:00 Pulse Ox 99 06/16/24 16:00 Oxygen Delivery Method Room Air 06/16/24 16:00 BMI result Body Mass Index 38.0 Const General: cooperative, healthy appearing and comfortable Nutritional Appearance: obese Orientation/consciousness: patient oriented x3 Limitations: no limitations HEENT Head: Yes normocephalic and Yes atraumatic Mouth: moist mucous membranes Resp Effort & Inspection: normal respiratory effort and able to speak in complete sentences Auscultation: clear to auscultation bilaterally Cardio Rate: regular rate Rhythm: regular rhythm Skin Other: Prominent psoriasis patches behind right ear, psoriasis patches on the right ear canal Neuro General: patient oriented x3 Extrem Other: Negative Ami's test today No active synovitis today Bilateral 1st CMC joint tenderness Normal range of motion of both elbows and shoulders out pain Normal nailfold capillaroscopy Assessment & Plan Assessment & Plan (1) Psoriatic arthritis: Comment: per pt dx around 1999 MTX started around 2019 then Humira shortly added with good results MTX switched to SQ 03/2023 d.t GI upset Humira DC 05/2023 due to secondary nonresponse Enbrel 05/2023 -08/2023 ineffective Taltz 08/2023. Code(s): L40.50 - Arthropathic psoriasis, unspecified Category: Medical Plan: This is a 68-year-old female with psoriatic arthritis who presents for follow-up. On methotrexate 15 mg subcutaneously once weekly, Taltz 80 mg q.4 weeks. Patient continues to have active psoriasis patches. We will need to change DMARDs. Discussed risks and benefits of Bimzelx. Patient agreed to proceed. Will start prior authorization for them Bimzlex. We will work on authorizing the Bimzelx dosing for psoriasis as her psoriasis seems to be the most active problem at this time Continue leucovorin 10 mg weekly and folic acid 1 mg daily Labs before next visit in 3 months (2) Psoriasis: Code(s): L40.9 - Psoriasis, unspecified Category: Medical Plan: As mentioned above. Patient has failed triple TNF inhibitors, she is on methotrexate. Taltz was incompletely effective. We will start prior authorization for Bimzelx Stop betamethasone cream and start clobetasol (3) custodial methotrexate user: Code(s): Z79.631 - termite control technician (current) use of antimetabolite agent Category: Medical Plan: Monitor safety labs (4) Nasal ulcer: Code(s): J34.0 - Abscess, furuncle and carbuncle of nose Category: Medical Plan: Improved since methotrexate was lowered to 15 mg weekly. Continue with Leucovorin. Patient has an appointment with ENT. Advised patient to discuss with ENT and consider a biopsy Plan I spent 25 minutes reviewing patient's chart, evaluating patient, ordering diagnostic workup, counseling patient and documenting in the chart Orders: Orders Erythrocyte Sedimentation Rate 3 Months L40.50 - Arthropathic psoriasis, unspecified Complete Blood Count Auto Diff 3 Months L40.50 - Arthropathic psoriasis, unspecified Comprehensive Met. Panel 3 Months L40.50 - Arthropathic psoriasis, unspecified C Reactive Protein 3 Months L40.50 - Arthropathic psoriasis, unspecified Medications: New clobetasol 0.05% Do not apply on face or intertriginous areas 1 appl topical BID 30 grams 2RF Coding Level of Care Code Est Pt Level 4 (96414) Complex EM visit Add On G2211 Diagnoses Psoriatic arthritis L40.50 Psoriasis L40.9 termite control technician methotrexate user Z79.631 Nasal ulcer J34.0
== END 2024-06-16 16:30 | disposition home or self-care (01) ==
LOC: HO.RHE 15:56
PROVIDERS: PCP Family Medicine; Visit Provider Student in an Organized Health Care Education/Training Program
DX: L40.50 Arthropathic psoriasis, unspecified (principal); L40.9 Psoriasis, unspecified; Z79.631 Long term (current) use of antimetabolite agent; J34.0 Abscess, furuncle and carbuncle of nose
CPT/HCPCS: 99214

== ENCOUNTER 2024-09-14 14:53 | Outpatient (REF) | payer OTHER, SELFPAY ==
[2024-09-14 15:17] LABS: MANUAL DIFF FLAG NO
[2024-09-14 15:35] LABS: Basophils Absolute Auto 0.1 X10*3/uL (0.0-0.2); Basophils Percent Auto 0.8 % (0-2); Eosinophils Absolute Auto 0.1 X10*3/uL (0.0-0.4); Eosinophils Percent Auto 0.8 % (0-4); Hematocrit 33.9 % (37.0-47.0); Hemoglobin 10.8 g/dl (12.0-16.0); Imm Gran Abs Auto 0.04 X10*3/uL (0.00-0.03); Imm Gran Pct Auto 0.5 % (0.0-0.4); Lymphocytes Absolute Auto 1.4 X10*3/uL (1.2-4.9); Lymphocytes Percent Auto 18.5 % (20-40); Mean Corpuscular HGB Conc 31.9 g/dl (31.0-35.0); Mean Corpuscular Hemoglobin 31.5 pg (27.0-33.0); Mean Corpuscular Volume 98.8 fL (80.0-98.0); Mean Platelet Volume 8.5 fL (9.4-12.3); Monocytes Absolute Auto 0.6 X10*3/uL (0.1-1.2); Monocytes Percent Auto 7.8 % (2-11); Neutrophils Absolute Auto 5.6 x10*3/uL (2.0-8.3); Neutrophils Percent Auto 71.6 % (45-73); Platelet Count 328 X10*3/uL (160-400); Red Blood Count 3.43 X10*6/uL (4.20-5.50); Red Cell Distribution Width 13.2 % (11.0-16.0); White Blood Count 7.8 X10*3/uL (4.8-10.8)
--- OUTSIDE RECORDS SUMMARY | 2024-09-14 16:00 | XMS_ITS | Encounter Summary ---
Author Organization [facility] Address [address] [place] [address] Phone Care Team Providers Care Warp Knitter Helper Name Role Phone Bernadine Rose Primary Care Provider [phone] Encounter Details Date Type Department Care Team (Late st Contact Info) Description 07/11/2024 Documentation Only [facility], [address] [place] [address] [place] Andrew [address] [place] [id number] Social History Tobacco Use Types Packs/Day Years Used Date Smoking Tobacco: Never Assessed Comments Unknown Sex and Gender Information Value Date Recorded Sex Assigned at Not on file Legal Sex Female 11:57 AM EDT Gender Identity Not on file Sexual Orientation Not on file documented as of this encounter Plan of Treatment Not on file documented as of this encounter Visit Diagnoses Not on filedocumented in this encounter Care Teams Warp Knitter Helper Relationship Specialty Start Date End Date Bernadine Rose PA [address] [place] [address] PCP - General Physician Storage Facility Rental Clerk 08/07/23 documented as of this encounter
--- OUTSIDE RECORDS SUMMARY | 2024-09-14 16:00 | XMS_ITS | Clinical Summary ---
Author Organization [facility], Address [address] [place] [address] [place] [phone] Phone Care Team Providers Care Creative Writing Teacher Name Role Phone Bernadine Rose Primary Care Provider [phone] Allergies Active Allergy Reactions Criticality Noted Date Comments Amoxicillin-Pot Clavulanate Rash Low 08/07/20 23 Pravastatin 08/07/2023 Medications Humira Pen 40 MG/0.4ML Pen-injector Kit 3 Active atorvastatin (LIPITOR) 10 MG tablet Take 10 mg by mouth 1 (one) time each day 3 Active chlorthalidone 25 MG tablet Take 25 mg by mouth 1 (one) time each day 3 Active cyclobenzaprin e (FLEXERIL) 5 MG tablet Take 5 mg by mouth 1 (one) time each day in the evening 3 Active DULoxetine (CYMBALTA) [address] capsule TAKE 2 CAPSULES BY MOUTH EVERY DAY IN THE MORNING 3 Active Enbrel SureClick 50 MG/ML solution auto-injector 3 Active famotidine (PEPCID) 40 MG tablet Take 40 mg by mouth 3 Active leucovorin 5 MG tablet TAKE 1 TABLET BY MOUTH EVERY WEEK ON THE DAY AFTER METHOTREXATE 3 Active lisinopril 10 MG tablet Take 10 mg by mouth 1 (one) time each day 3 Active methotrexate 50 MG/2ML injection INJECT 15 MG (0.6 ML) SUBCUTANEOUSLY EVERY WEEK 3 Active potassium chloride (K-TAB) 20 MEQ CR tablet Take 20 mEq by mouth 1 (one) time each day 3 Active traZODone (DESYREL) 50 MG tablet TAKE 1 TO 2 TABLETS BY MOUTH AT BEDTIME 3 Active Semaglutide,0. 25 or 0.5MG/DOS, (Ozempic, 0.25 or 0.5 MG/DOSE,) 2 MG/1.5ML solution pen-injector Inject under the skin Active potassium chloride (KLOR-CON M20) 20 MEQ CR tablet Take 20 mEq by mouth 1 (one) time each day Do not crush or chew. Active Active Problems Problem Noted Date Diagnosed Date Benign essential hypertension 08/07/2023 Stage 3 chronic kidney disease 08/07/2023 Encounters Date Type Department Care Team Description 07/11/2024 Documentation Only [facility], [address] [place] [address] [place] Andrew from Last 3 Months Social History Tobacco Use Types Packs/Day Years Used Date Smoking Tobacco: Never Assessed Comments Unknown Sex and Gender Information Value Date Recorded Sex Assigned at Not on file Legal Sex Female 11:57 AM EDT Gender Identity Not on file Sexual Orientation Not on file Plan of Treatment Health Maintenance Due Date Last Done Comments Breast Cancer Screening 1955 Pneumococcal Vaccine: 65+ Ye ars (1 of 2 - PCV) 10/31/1961 Colorectal Cancer Screening: Annual FOBT 10/31/2004 Colorectal Cancer Screening: Colonoscopy 10/31/2004 Colorectal Cancer Screening: Sigmoidoscopy 10/31/2004 Influenza Vaccine (#1) 2024 Hepatitis B Vaccine Aged Out No longe r eligible based on patient's age to complete this topic Insurance [facility] Care Teams Creative Writing Teacher Relationship Specialty Start Date End Date Bernadine Rose PA [address] [place] [phone] PCP - General Physician Manager [facility] 08/07/23
--- OUTSIDE RECORDS SUMMARY | 2024-09-14 16:00 | XMS_ITS | Data Portability ---
Author Organization [place] - [facility], Allergy Address [address] [address] Care Team Providers Care Bonded Strand Operator Name Role Phone CORDELLCHARLES TRACEY Referring Provider Assessment Encounter Date Assessment Date Assessment LastModified by Organization Details LastModified Time 04/18/2024 04/18/2024 68 year old female presents for evaluation of a right ear infection. There was a cast overlying the right TM. Once the cast was removed patient reported improvement in her hearing and her TM was intact with well aerated middle ear space. She will follow up on an as needed basis if the ear pain or diminished hearing persists but I anticipate this cast was causing her symptoms. I saw and evaluated the patient. Patti Khoury PA-C functioned as a scribe for this visit. Not available 04/18/2024 15:22:11 06/24/2024 06/24/2024 68 year old female presents reporting right ear blockage sensation and diminished hearing as well as predominantly right sided nasal congestion. Exam demonstrates intact TMs with well aerated middle ear spaces bilaterally. Audiometric testing revealed normal hearing and type A tympanograms. I discussed with the patient that some of the ear blockage sensation may be referred from her TMJ. I offered her a course of Prednisone to see if that improves her congestion. We reviewed risks of Prednisone including AVN of the hip and mood changes and she was advised to discontinue with any symptoms. She will follow up in 6-8 weeks. If her symptoms persist at that time she may benefit from allergy testing. Not available 06/24/2024 16:01:48 08/16/2024 08/16/2024 68 year old female presents for follow up of right sided nasal congestion and right ear blockage type sensation. At last office visit in June with the exception of a mild SNHL at 3000 Hz, she had normal hearing on the right with excellent word recognition. Normal hearing in the left ear and type A tympanograms bilaterally. Ear is feeling less blocked now. I have recommended that she continue with Flonase and antihistamine as well as the neti pot. I have ordered allergy testing. She will follow up to review results. She may benefit from nasal endoscopy if her nasal symptoms persist. Not available 08/16/2024 11:56:17 Plan of Treatment Reminders Order Date Submit Date Provider Last Modified By Organization Details Last Modified Time Details Appointments None recorded. Lab None recorded. Referral None recorded. Procedures allergy testing, skin prick (PROC) 2024 025 [email or web address] Not available 5 08:10:28 intradermal allergy skin testing (PROC) 2024 025 [email or web address] Not available 5 08:10:29 pulmonary function test procedure (PROC) 2024 025 [email or web address] Not available 5 08:10:29 pulse oximetry (PROC) 2024 025 [email or web address] Not available 5 08:10:29 Surgeries None recorded. Imaging None recorded. Medication Orders prednisone 10 mg tablet 2023 024 [facility]/Pharmacy #[id number], [address] [place], [address], 4 15:59:30 Patient TargetsNo targets recorded. Patient InstructionsNo instructions recorded. Reason for Referral None Reported. Results Created Date Observation Date Name Description Value Unit Range Abnormal Flag Note LastModifiedBy Organization Detail LastModifiedTime 06/24/20 24 audio gram No observ ation record ed. BARCODE Not Available 2023 15:58:30 Result Notes None recorded. Problems Name Problem SNOMED Code Status Onset Date Resolution Date Notes Provider Name and Address Organization Details Recorded Time Impacted cerumen in right ear 1782806958304 103 Active 2023 PATTI KHOURY PA-C [address] [place] [address], [place], [address], [facility] - [facility] 4 15:21:30 Abnormal auditory perception 38707174 Active 2023 PATTI KHOURY PA-C [address] [facility],[place] [address], [place], [address], [facility] - [facility] 4 15:21:36 Tinnitus of right ear 0962861405787 Active 2023 PATTI KHOURY PA-C [address] [place] [address],[place] [address], [place], [address], [facility] - [facility] 4 13:45:00 Nasal congestion 06107487 Active 2023 PATTI KHOURY PA-C [address] [facility],[place] [address], [place], [address], [facility] - [facility] 4 14:20:45 Posterior rhinorrhea 18643231 Active 2023 PATTI KHOURY PA-C [address] [place] [address],[place] [address], [place], [address], [facility] - [facility] 4 14:20:52 Allergic rhinitis 61877730 Active 2024 PATTI KHOURY PA-C [address] [place] [address], [place], [address], [facility] - [facility] 5 11:49:04 Problem Notes None recorded. Procedures Surgical History Date Name Laterality Status Provider Name and Address Organization Details Recorded Time 4 Comp Audio with Tymps (37739 & 47442) completed JAME DUMAS [facility] [address] [facility],[address], [address], [facility] - [facility] 06/24/2024 13:58:28 4 Cerumen removal with microscope right completed PATTI KHOURY PA-C [address] [facility],[address], [address], [facility] - [facility] 04/18/2024 15:20:50 Imaging Results Imaging Date Name Status LastModified by [facility] Details LastModified Time 06/24/2024 audiogram completed BARCODE Information no t available 06/24/2024 15:58:30 Procedure Notes None recorded. Medical Equipment None Reported. Allergies Allergen ID Allergen Name Allergen Category Reaction Reaction Severity Criticality Documentation Date Start Date Code Code System Note Provider Name and Address Organization Details Recorded Time 794453 Augmentin medicatio n Not available Not available Not available 04/18/2024 00537 2 RxNorm Anastasiia gonzalez [place] - [facility] 4 13:59:49 056983 pravastat in medicatio n Not available Not available Not available 04/18/2024 39008 RxNorm Anastasiia Gretta gonzalez [place] - [facility] 4 13:59:59 Medications Name Sig Start Date Stop Date Status Note LastModified by Organization Details LastModified Time BD SafetyGlide Shielding Regular Bevel 1 mL 25 gauge x 5/8 syringe USE ONCE WEEKLY WITH METHOTREX ATE active Not Available Not Available No t Available prednisone 10 mg tablet TAKE 4 TABLETS DAILY FOR 3 DAYS, THEN 3 TABLETS DAILY FOR 3 DAYS, THEN 2 TABLETS DAILY FOR 3 DAYS active Not Available Not Available No t Available trazodone 50 mg tablet TAKE 1 TO 2 TABLETS BY MOUTH AT BEDTIME active Not Available Not Available No t Available atorvastati n 10 mg tablet TAKE 1 TABLET BY MOUTH EVERY DAY active Not Available Not Available No t Available azithromyci n 250 mg tablet TAKE 2 TABLETS ON FIRST DAY THEN 1 TABLET DAILY FOR 4 DAYS 04/18 completed Not Available Not Available Not Available benzonatate 200 mg capsule TAKE 1 CAPSULE BY MOUTH THREE TIMES A DAY FOR 5 DAYS active Not Available Not Available No t Available famotidine 40 mg tablet TAKE 1 TABLET BY MOUTH TWICE A DAY active Not Available Not Available No t Available prednisone 20 mg tablet TAKE 2 TABLETS BY MOUTH EVERY DAY FOR 5 DAYS 04/18 completed Not Available Not Available Not Available prednisone 5 mg tablet TAKE 1 TABLET BY MOUTH EVERY DAY NEEDED FOR PAIN active Not Available Not Available No t Available moxifloxaci n 400 mg tablet TAKE 1 TABLET BY MOUTH EVERY DAY FOR 7 DAYS 04/18 completed Not Available Not Available Not Available clobetasol 0.05 % topical cream 1 APPL TOPICALLY 2 TIMES A DAY DO NOT APPLY ON FACE OR INTERTRIG INOUS AREAS active Not Available Not Available No t Available chlorthalid one 25 mg tablet TAKE 1 TABLET BY MOUTH EVERY DAY active Not Available Not Available No t Available methotrexat e sodium 25 mg/mL injection solution INJECT 20 MG (0.8 ML) SUBCUTANE OUSLY EVERY WEEK active Not Available Not Available No t Available triamcinolo ne acetonide 0.1 % topical cream APPLY A THIN LAYER TO AFFECTED AREA TWICE A DAY FOR 2 WEEKS active Not Available Not Available No t Available amoxicillin 875 mg tablet TAKE 1 TABLET BY MOUTH EVERY 12 HOURS FOR 5 DAYS 04/18 completed Not Available Not Available Not Available hydrocortis one-acetic acid 1 %-2 % ear drops INSTILL 2 DROPS INTO AFFECTED EAR(S) 4 TIMES A DAY active Not Available Not Available No t Available meclizine 25 mg tablet TAKE 1 TABLET BY MOUTH EVERY DAY NEEDED FOR DIZZINESS active Not Available Not Available No t Available cephalexin 500 mg capsule TAKE 1 CAPSULE BY MOUTH 3 TIMES A DAY FOR 7 DAYS. TAKE W FOOD, YOGURT, PROBIOTIC S. FINISH ALL. active Not Available Not Available No t Available lisinopril 10 mg tablet TAKE 1 TABLET BY MOUTH EVERY DAY active Not Available Not Available No t Available leucovorin calcium 5 mg tablet TAKE 1 TABLET BY MOUTH EVERY WEEK active Not Available Not Available No t Available folic acid 1 mg tablet TAKE 1 TABLET ORALLY DAILY active Not Available Not Available No t Available levalbutero l 1.25 mg/3 mL solution for nebulizatio n INHALE 3 ML BY NEB EVERY 4 HOURS NEEDED FOR WHEEZING OR SHORTNESS OF BREATH/DY SPNEA. active Not Available Not Available No t Available albuterol sulfate HFA 90 mcg/actuati on aerosol inhaler TAKE 2 PUFFS BY MOUTH EVERY 4 HOURS active Not Available Not Available No t Available fluticasone propionate 50 mcg/actuati on nasal spray,suspe nsion INSTILL 2 SPRAYS BY INTRANASA L ROUTE EVERY DAY active Not Available Not Available No t Available doxycycline hyclate 100 mg tablet TAKE 1 TABLET BY MOUTH TWICE A DAY FOR 7 DAYS 04/18 completed Not Available Not Available Not Available neomycin-po lymyxin-hyd rocort 3.5 mg-10,000 unit/mL-1 % ear drops,susp PLACE 4 DROPS INTO THE RIGHT EAR 4 (FOUR) TIMES A DAY FOR 10 DAYS. active Not Available Not Available No t Available methotrexat e sodium (PF) 25 mg/mL injection solution 15 MG (0.6 ML) SUBCUTANE OUSLY EVERY WEEK active Not Available Not Available No t Available cyclobenzap rine 5 mg tablet TAKE 1 TABLET BY MOUTH EVERY DAY IN THE EVENING 04/18 completed Not Available Not Available Not Available Allergy Relief D-24hr 10 mg-240 mg tablet,exte nded release TAKE 1 TABLET DAILY active Not Available Not Available No t Available duloxetine 60 mg capsule,del ayed release TAKE 2 CAPSULES BY MOUTH EVERY DAY IN THE MORNING active Not Available Not Available No t Available Enbrel SureClick 50 mg/mL (1 mL) subcutaneou s pen injector 04/18 completed Not Available Not Available Not Available Flovent Diskus 250 mcg/actuati on powder for inhalation TAKE 1 PUFF BY MOUTH TWICE A DAY 04/18 completed Not Available Not Available Not Available potassium chloride ER 20 mEq tablet,exte nded release TAKE 1 TABLET BY MOUTH EVERY DAY active Not Available Not Available No t Available Breo Ellipta 200 mcg-25 mcg/dose powder for inhalation TAKE 1 PUFF BY MOUTH EVERY DAY active Not Available Not Available No t Available Taltz Autoinjecto r 80 mg/mL subcutaneou s active Not Available Not Available Not Available Humira(CF) Pen 40 mg/0.4 mL subcutaneou s kit 04/18 completed Not Available Not Available Not Available Vitals Date Recorded Body height Body mass index (BMI) Body weight Provider Name and Address Organization Details Last Updated DateTime 04/18/2024 160.02 cm 38.8 kg/m2 41490.73 g Anastasiia Glynn [facility] 04/18/2024 13:59:39 Date Recorded Body height Body mass index (BMI) Body weight Provider Name and Address Organization Details Last Updated DateTime 06/24/2024 160.02 cm 38.8 kg/m2 93515.73 g May Merchant [facility] 06/24/2024 13:40:00 Date Recorded Body height Body mass index (BMI) Body weight Provider Name and Address Organization Details Last Updated DateTime 08/16/2024 160.02 cm 38.8 kg/m2 08130.73 g Linda Mathews [facility] 08/16/2024 11:29:26 Social History None recorded. Functional Status None recorded. Mental Status None recorded. Family History Nothing Reported. Medical History No medical history recorded. Gynecological HistoryNo gynecological history recorded. Obstetrics History GPAL:G 0 P 0 0 0 0 Past Encounters Encounter ID Performer Location Encounter Start Date Encounter Closed Date Diagnosis/Indication Diagnosis SNOMED-CT Code Diagnosis ICD10 Code Diagnosis Note [id number] KUSH HAYES MD [facility] on [address] [place] [id number] 04/18/2024 13:52:55 04/18/2024 14:45:30 Impacted cerumen in right ear 9544835183 661000 H61.21 Abnormal a uditory perception 30348469 H93.299 [id number] KUSH HAYES MD [facility] on [address] [place] [id number] 06/24/2024 13:37:55 06/24/2024 14:27:57 Tinnitus of right ear 9518797051 108 H93.11 Audiologic al evaluation results:Ri ght ear:{{Norm al Normal through 2 kHz Mild M oderate Mo derately-s evere Tory re Profoun d With the exception of a mild SNHL at 3000 Hz, normal#}} {{hearing* hearing. sloping to a mild slopi ng to a moderate s loping to moderately severe slo ping to severe slo ping to profound f lat high frequency low frequency mid frequency cookie bite stauffer curve}} {{with* se nsorineura l hearing loss with condu ctive hearing loss with mixed hearing loss with}} {{excellen t* good fa ir poor no measurable }} word recognitio n.Left ear:{{Norm al* Normal through 2 kHz Mild M oderate Mo derately-s evere Tory re Profoun d}} {{hearing* hearing. sloping to a mild slopi ng to a moderate s loping to moderately severe slo ping to severe slo ping to profound f lat high frequency low frequency mid frequency cookie bite stauffer curve}} {{with* se nsorineura l hearing loss with condu ctive hearing loss with mixed hearing loss with}} {{excellen t* good fa ir poor no measurable }} word recognitio n. Tympanomet ry:Right Ear:{{Type A* Type As Type Ad Type C Type C, shallow & rounded Ty pe B Type B with large volume Cou ld not maintain a hermetic seal}}Left Ear:{{Type A* Type As Type Ad Type C Type C, shallow & rounded Ty pe B Type B with large volume Cou ld not maintain a hermetic seal}} Nasal congestion 3164865 0 R09.81 Posterior rhinorrhea 758 94415 R09.82 [id number] TIANA ORDOÑEZ MD [facility] [address] [address] 08/16/2024 11:19:30 08/16/2024 11:51:55 Allergic rhinitis 58840706 J30.9 Nasal congestion 6841062 0 R09.81 Health Concerns Section Related Observation LastModified by Organization Detai ls LastModified Time None Recorded Concern Status LastModified by Organization Details LastModified Time None Recorded Advance Directives Directive None Recorded Payers Encounter Date Sequence Insurance Name Policy Number Policy Dunham Covered Member ID Dunham Member ID Guarantor Name 04/18/2024 1 [facility] Allison D Pause [id number] Allison D Pause 06/24/2024 1 [facility] Allison D Pause [id number] Allison D Pause 08/16/2024 1 [facility] Allison D Pause [id number] Allison D Pause Notes Date Note Type Note Provider Name and Address Organization Details Recorded Time 04/18/2024 text/html 68 year old marisa guadarrama presents for evaluation of the right ear. She reports right ear pain that started at the beginning of March. The ear was draining clear liquid off and on. She was treated with Amoxicillin, Doxycycline and ultimately Moxifloxacin which she completed last week. The drainage stopped once she took moxifloxacin. It is feeling better now but her hearing is somewhat diminished. She was not prescribed ear drops. KUSH HAYES MD [address] [place] [address], [phone], [facility] - [facility] 04/18/2024 17:38:25 06/24/2024 text/html 68 year old marisa guadarrama presents to the office for reevaluation. She reports right ear blockage sensation and diminished hearing. She reports that she had another ear infection treated with Keflex and Cortisporin. She feels this was due to her psoriasis. There was some clear drainage from the right ear. She reports nasal congestion and postnasal drip. She reports seasonal allergies for which she takes Claritin and uses Flonase. She admits that she does clench and grind her teeth and has been diagnosed with TMJ. KUSH HAYES MD [address] [facility],[place] [address], [place], [address], [facility] 06/27/2024 10:25:32 08/16/2024 text/html 68 year old marisa guadarrama presents for follow up. Unfortunately she did not notice improvement in her right sided nasal congestion with Prednisone. Her right ear is feeling a bit less blocked. She has been using Flonase and over the counter oral antihistamine. She feels that her allergies are getting worse and is interested in allergy testing. TIANA ORDOÑEZ MD [address] [place] [address],[place] [address], [place], [address], [facility] 08/16/2024 13:43:28 OBGyn Episode No OBEpisode recorded.
--- OUTSIDE RECORDS SUMMARY | 2024-09-14 16:00 | XMS_ITS | Clinical Summary ---
Author Organization [facility] Address [address] [place] [address] Care Team Providers Care Stain Remover Name Role Phone Unavailable Primary Care Provider Unavailabl e Social History Tobacco Use Types Packs/Day Years Used Date Smoking Tobacco: Never Assessed Comments Unknown Sex and Gender Information Value Date Recorded Sex Assigned at Not on file Legal Sex Female 10:35 AM EDT Gender Identity Not on file Sexual Orientation Not on file Plan of Treatment Health Maintenance Due Date Last Done Comments Hepatitis C Screening 1955 DTaP/Tdap/Td (1 - Tdap) 10/31/1973 Mammogram/Breast Imaging 1995 Pneumococcal 50+ years (1 of 1 - PCV) 10/31/2005 Zoster (Shingrix) (1 of 2) 10/31/2005 Bone Density 10/31/2020 COVID-19 Vaccine ( - 2023-2 5 season) 2024 Influenza (#1) 2024 RSV (1 - 1-dose 75+ series) 10/31/2030 HPV Vaccine Aged Out No longer eligi ble based on patient's age to complete this topic Hep A Aged Out No longer eligi ble based on patient's age to complete this topic Hep B Aged Out No longer eligi ble based on patient's age to complete this topic Hib Aged Out No longer eligi ble based on patient's age to complete this topic Meningococcal ACWY Aged Out No longer eligible based on patient's age to complete this topic Pap Smear Discontinued Zoster (Zostavax) Discontinued
--- OUTSIDE RECORDS SUMMARY | 2024-09-14 16:00 | XMS_ITS | Encounter Summary ---
Author Organization [facility], Address [address] [place] [address] Phone Care Team Providers Care Door To Door Selling Agent Name Role Phone Bernadine oRse Primary Care Provider [phone] Encounter Details Date Type Department Care Team (Late st Contact Info) Description 06/04/2023 Documentation Only [facility], - Tami Sheth [address] [phone] Radha Timmons NP [address] [place] [address] Social History Tobacco Use Types Packs/Day Years [...] on filedocumented in this encounter Care Teams Door To Door Selling Agent Relationship Specialty Start Date End Date Bernadine Rose PA [address] [place] [address] PCP - General Physician Icu Staff Nurse 08/07/23 documented as of this encounter
--- OUTSIDE RECORDS SUMMARY | 2024-09-14 16:00 | XMS_ITS | Continuity of Care Document ---
Author Organization [place] - [facility], [facility] Address [address] [place] [address] Care Team Providers Care Regulatory Consultant Name Role Phone CHARLES LEWIS Referring Provider Assessment Encounter Date Assessment Date Assessment LastModified by Organization Details LastModified Time 08/16/2024 08/16/2024 68 year old female presents [...] None recorded. Imaging None recorded. Medication Orders None recorded. Patient TargetsNo targets recorded. Patient InstructionsNo instructions recorded. Reason for Referral None Reported. Problems Name Problem SNOMED Code Status Onset Date Resolution Date Notes Provider Name and Address Organization Details Recorded Time Impacted cerumen in right ear 6238937721168 103 Active 2023 PATTI KHOURY PA-C [address] [facility],[address], [place], [place], [address], [facility] [place] 4 15:21:30 Abnormal auditory perception 22684026 Active 2023 PATTI KHOURY PA-C [address] [facility],[address] [facility], [place], [place], [address], [facility] [place] 4 15:21:36 Tinnitus of right ear 8187427836489 Active 2023 PATTI KHOURY PA-C [address] [place] [address],[place] [address], [place], [place], 9, [facility] - [facility] [place] 4 13:45:00 Nasal congestion 48566039 Active 2023 PATTI KHOURY PA-C [address] [facility], E [facility], [place], [place], 9, [facility] - [facility] [place] 4 14:20:45 Posterior rhinorrhea 12422080 Active 2023 PATTI KHOURY PA-C [address] [facility], E [facility], [place], [place], [address], [facility] [place] 4 14:20:52 Allergic rhinitis 09813178 Active 2024 PATTI KHOURY PA-C [address] [facility],[address], [place], [place], 9, [facility] - [facility] [place] 5 11:49:04 Problem Notes None recorded. Procedures Surgical History Date Name Laterality Status Provider Name and Address Organization Details Recorded Time 4 Comp Audio with Tymps (08722 & 87367) completed JAME DUMAS [facility] [address] [facility],[place] [address], [place], [address], [facility] - [facility] [place] 06/24/2024 13:58:28 Cerumen removal with microscope right completed PATTI KHOURY PA-C [address] [facility] [address], [place], [address], [facility] 04/18/2024 15:20:50 Imaging Results None recorded. Procedure Notes None recorded. Medical Equipment None Reported. Allergies Allergen ID Allergen Name Allergen Category Reaction Reaction Severity Criticality Documentation Date Start Date Code Code System Note Provider Name and Address Organization Details Recorded Time 588462 Augmentin medicatio n Not available Not available Not available 04/18/2024 80147 2 RxNorm Anastasiia gonzalez [place] - [facility] 13:59:49 564444 pravastat in medicatio n Not available Not available Not available 04/18/2024 71597 RxNorm Anastasiia gonzalez [place] [facility] 13:59:59 Medications Name Sig Start Date Stop [...] Updated DateTime 08/16/2024 160.02 cm 38.8 kg/m2 55092.73 g Linda Mathews [place] - [facility] 08/16/2024 11:29:26 Social History None recorded. Functional Status None recorded. Mental Status None recorded. Family History Nothing Reported. Medical History No medical history recorded. Gynecological HistoryNo gynecological history recorded. Obstetrics History GPAL:G 0 P 0 0 0 0 Past Encounters Encounter ID Performer Location Encounter Start Date Encounter Closed Date Diagnosis/Indication Diagnosis SNOMED-CT Code Diagnosis ICD10 Code Diagnosis Note [id number] TIANA ORDOÑEZ MD [facility] [address] [place] [address] 08/16/2024 11:19:30 08/16/2024 11:51:55 Allergic rhinitis 91328030 J30.9 Nasal congestion 4468087 0 R09.81 Health Concerns Section Related Observation LastModified by Organization Detai ls LastModified Time None Recorded Concern Status LastModified by Organization Details LastModified Time None Recorded Payers Encounter Date Sequence Insurance Name Policy Number Policy Dunham Covered Member ID Dunham Member ID Guarantor Name 08/16/2024 1 [facility] Allison Bradford Pause [id number] Allison D Pause Notes Date Note Type Note Provider Name and Address Organization Details Recorded Time 08/16/2024 text/html 68 year old marisa guadarrama presents for follow up. Unfortunately she did not notice improvement in her right sided nasal congestion with Prednisone. Her right ear is feeling a bit less blocked. She has been using Flonase and over the counter oral antihistamine. She feels that her allergies are getting worse and is interested in allergy testing. TIANA ORDOÑEZ MD [address] [place] [address], [address], [facility] - [facility] 08/16/2024 13:43:28 OBGyn Episode No OBEpisode recorded.
--- OUTSIDE RECORDS SUMMARY | 2024-09-14 16:00 | XMS_ITS | Encounter Summary ---
Author Organization [facility] Address [address] [place] [address] Phone Care Team Providers Care Shoe Cutter Name Role Phone Bernadine Rose Primary Care Provider [phone] Encounter Details Date Type Department Care Team (Late st Contact Info) Description 09/03/2023 Documentation Only [facility] [place], [address] [place] [phone] Linda Wagner [address] [place] [phone] Social History Tobacco Use Types Packs/Day Years [...] on filedocumented in this encounter Care Teams Shoe Cutter Relationship Specialty Start Date End Date Bernadine Rose PA [address] [place] [address] PCP - General Physician Senior Teller 08/07/23 documented as of this encounter
[2024-09-14 16:12] LABS: Erythrocyte Sedimentation Rate 78 MM/HR (0-20)
[2024-09-14 16:18] LABS: Alanine Aminotransferase 21 U/L (0-31); Anion Gap 11 (12-20); Aspartate Amino Transferase 28 U/L (5-31); Bilirubin Total 0.4 mg/dL (0.0-1.0); Blood Urea Nitrogen 29 mg/dL (9-16); C Reactive Protein 1.58 mg/dL (< or = 0.50); Calcium 10.2 mg/dL (8.4-10.2); Carbon Dioxide 27 mmol/L (22-29); Chloride 104 mmol/L (96-108); Estimated Glomerular Filt Rate 41; Glucose Random 93 mg/dL (60-115); Potassium 4.9 mmol/L (3.3-5.1); Sodium 137 mmol/L (135-145); Total Protein 7.9 g/dL (6.5-8.0)
[2024-09-14 16:32] LABS: Alkaline Phosphatase 96 U/L (39-117)
== END 2024-09-14 14:54 | disposition home or self-care (01) ==
LOC: HO.LAB 14:53
PROVIDERS: PCP Family Medicine; Visit Provider Student in an Organized Health Care Education/Training Program
DX: L40.50 Arthropathic psoriasis, unspecified (principal); Z79.631 Long term (current) use of antimetabolite agent
CPT/HCPCS: 36415; 80053; 85025; 85652; 86140

== ENCOUNTER → 2024-09-16 14:28 | Outpatient (BNVA) | payer OTHER, SELFPAY | PROVIDERS: PCP Family Medicine; Visit Provider Student in an Organized Health Care Education/Training Program ==

== ENCOUNTER 2024-12-19 12:27 | Outpatient (AMB) | payer OTHER, SELFPAY ==
[2024-12-19 12:31] VITALS: BP 136/74; PULSE 74; O2SAT 100; BMI 38.2
--- NOTE | 2024-12-19 12:31 | MHC.OFFVIS ---
Vital Signs 12/19/24 12:31 Height 5 ft 4 in Weight 222 lb 10.67 oz BMI 38.2 BP 136/74 Blood Pressure Location Lt brachial Position Sitting Pulse 74 Pulse Source Pulse Oximeter Pulse Oximetry (%) 100 Oxygen Delivery Method Room Air Intake Visit Reasons: PSA Intake Note: Patient presents for follow up on PSA today. She was inquiring about injection in right hand today. Allergies amoxicillin [From Augmentin] Allergy (Verified 12/19/24 12:36) Rash clavulanic acid [From Augmentin] Allergy (Verified 12/19/24 12:36) Rash sulfamethoxazole [From Bactrim] Adverse Reaction (Mild, Verified 12/19/24 12:38) Unknown trimethoprim [From Bactrim] Adverse Reaction (Mild, Verified 12/19/24 12:38) Unknown pravastatin Adverse Reaction (Verified 12/19/24 12:36) Muscle Weakness Medication List - Last Reconciled 12/19/24 by Ghada Daugherty MD albuterol sulfate 90 mcg/actuation 0 mcg inhalation atorvastatin 10 mg PO DAILY betamethasone, augmented 0.05 % topical PRN chlorthalidone 25 mg PO DAILY clobetasol 0.05% 1 appl topical BID duloxetine 120 mg PO DAILY famotidine 40 mg PO BID fluticasone furoate-vilanterol 200-25 mcg/dose (Breo Ellipta) 1 ea inhalation DAILY folic acid 1 mg PO DAILY ibuprofen 800 mg PO TID 7 days insulin syringe-needle U-100 Use once weekly with methotrexate leucovorin calcium 10 mg (2 x 5 mg) PO QWEEK lisinopril 10 mg PO DAILY loratadine 10 mg PO DAILY meclizine 25 mg PO DAILY PRN methotrexate sodium 15 mg (0.6 mL) subcut QWEEK potassium chloride ER 20 mEq PO DAILY prednisone 5 mg PO DAILY PRN trazodone 100 mg PO BEDTIME PRN HPI Comments Details: Patient is a 68-year-old female with hyperlipidemia, hypertension, psoriasis and psoriatic arthritis here today for follow up Interval History: Patient last seen 09/16/2024 with me. At that time she was following up for her psoriasis complicated by psoriatic arthritis. Her psoriatic arthritis was well controlled however her psoriasis was uncontrolled and given the poor efficacy for abatacept in controlling psoriasis she was switch to golimumab infusions. She also complained of bilateral 1st CMC joint pain which was attributed to her osteoarthritis Today, Notes that her joints and her PsO is getting better Requesting 1st CMC joint injection today Rheumatologic History: pt dx around 1999 MTX started around 2019 then Humira shortly added with good results MTX switched to SQ 03/2023 rosie MORALES upset Humira DC 05/2023 due to secondary nonresponse Enbrel 05/2023 -08/2023 ineffective Taltz 08/2023 - 07/2024 Consentyx - [place] denied Orencia 07/2024- Current Rheumatology Medication(s): Simponi Aria infusions Methotrexate 15mg weekly Folic acid 1mg daily [facility] Medical History (Updated 09/16/24 @ 16:11 by Ghada Daugherty MD) intermediate (current) use of immunosuppressive biologic Mixed hyperlipidemia GERD (gastroesophageal reflux disease) Hypertension Major depressive disorder Psoriatic arthritis Chronic kidney disease Asthma Surgical History Hx of BSO (bilateral salpingo-oophorectomy) Hx of tubal ligation Hx of section Family History Mother Rectal cancer Cerebral aneurysm Rheumatoid arthritis Father Cerebral aneurysm Psoriasis Brother Hodgkin's lymphoma Asthma Depressive disorder Sister Lung tumor Social History Household Members Other:: Son Alcohol intake: former Patient Tobacco Use Status: Former Tobacco user Current occupational status: employed Current occupation: Nurse/ right hand Physical Exam Vital Signs: Last Vital Signs Pulse 74 12/19/24 12:31 BP 136/74 12/19/24 12:31 Pulse Ox 100 12/19/24 12:31 Oxygen Delivery Method Room Air 12/19/24 12:31 BMI result Body Mass Index 38.2 Vital signs reviewed Physical Examination CONSTITUITIONAL Patient alert and cooperative. Well appearing and in no apparent painful distress HEENT Conjunctiva and sclera clear. ?Pupils equal round and reactive to light. ?No lymphadenopathy. ? CHEST/RESPIRATORY SYSTEM Normal respiratory effort and able to speak in complete sentences. ?Clear to auscultation bilaterally. ?No crackles, rales, rhonchi, wheezes heard. CARDIAC SYSTEM Regular rate and rhythm. ?S1 and S2 heard no murmurs. ?Radial pulses intact bilaterally MSK Hands: ?Good pipelines manager strength bilaterally. Prominent right 1st CMC swelling and tenderness to palpation. Tenderness to palpation of the left 1st CMC. Not as prominent of a swelling as the right 1st CMC. Minimal tenderness to palpation of the PIPs. No tenderness to palpation of the MCPs or DIPs Wrists: ?Full range of motion at the wrists without pain. ?No tenderness to palpation or synovitis noted to the wrists. Elbows: Full range of motion without pain. No tenderness, weakness, swelling, increased warmth or erythema. Shoulders: Full range of motion without pain. Tenderness to palpation of bilateral AC joints. Knees: ?Full range of motion. ?No tenderness, swelling, increased warmth or erythema.? Bilateral crepitations felt Ankles: Full range of motion. ?No tenderness, swelling, increased warmth or erythema.? Feet: ?Negative squeeze test. ?No tenderness to palpation or swelling of the MTPs. SKIN Scaly psoriatic rash noted in the right ear and behind the ear - improved. Plaques on the right side of the scalp Left ear clean Office Procedures AMB Joint Injection/Aspiration Joint Injection/Aspiration Details: Procedure was explained to the patient and consent was obtained. ? The area of interest was identified and confirmed with patient. ?This was subsequently cleaned with chlorhexidine x3. ? The area was then anesthetized using ethyl chloride spray. 20 mg Kenalog with 0.5 cc 1% lidocaine was injected without issue. ?Minimal to no bleeding. ?Patient tolerated procedure. Primary Site: right thumb Prep: site was prepped using aseptic technique and ethochloride spray was applied Injected: 20 mg of, Kenalog, with 0.5 mL of, 1% plain lidocaine and in the joint Procedure: The patient tolerated the procedure well Coding - Small Joint Procedure code (CPT) selection complete Office Meds lidocaine (PF) 10 mg/mL (1 %) injection solution Performing Provider: Ghada Daugherty MD Performing Location: [facility] [place] Administered by: Ghada Daugherty MD on 12/19/24 13:44 Dose Route Admin Location Dispensed Lot Number Expiration Date [facility] Radio Division Lieutenant 1 mL Infiltration right thumb 2 mL [id number] 10/08/26 16830-860-54 [facility] Kenalog 40 mg/mL suspension for injection Performing Provider: Ghada Daugherty MD Performing Location: [facility] [place] Rhe[place]ology Administered by: Ghada Daugherty MD on 12/19/24 13:44 Dose Route Admin Location Dispensed Lot Number Expiration Date [place] [employer] Division Lieutenant 20 mg intra-articular right thum b 1 mL [id number] 02/07/26 [address]-1 AMNEAL YOANAEN Results Reviewed Results Reviewed: Laboratory Tests 04/09/23 06/15/24 09/14/24 14:34 12:14 15:15 WBC 7.8 RBC 3.43 L Hgb 10.8 L Hct 33.9 L Plt Count 328 ESR 68 H 78 H Sodium 137 Potassium 4.9 Chloride 104 Carbon Dioxide 27 BUN 29 H Creatinine 1.28 Calcium 10.2 Total Bilirubin 0.4 AST 28 ALT 21 Alkaline Phosphatase 96 C-Reactive Protein 1.50 H 1.58 H Hepatitis A IgM Ab Nonreactive Hep Bs Antigen Negative Hep Bs Antibody NONREACTIVE Hep B Core Total Ab Nonreactive Hepatitis C Ab (EIA) Nonreactive TB Test (T-Spot) Com Negative XR Hands 12/2023 FINDINGS: Right hand: First carpometacarpal joint there is advanced osteoarthritis manifested by marked joint space narrowing marginal osteophytes and subchondral cystic change. Remaining bones joints and soft tissues are unremarkable. Left hand: First carpometacarpal joint there is advanced osteoarthritis with marked joint space narrowing marginal osteophytes subchondral sclerosis. Remaining bones joints soft tissues are unremarkable. Assessment & Plan Assessment & Plan (1) Psoriatic arthritis: Comment: per pt dx around 1999 MTX started around 2019 then Humira shortly added with good results MTX switched to SQ 03/2023 d.t GI upset Humira DC 05/2023 due to secondary nonresponse Enbrel 05/2023 -08/2023 ineffective Taltz 08/2023 - 07/2024. ineffective Consentyx insurance denied Orencia 08/2024. Does not cover PsA Golimumab infusions 09/2024 Code(s): L40.50 - Arthropathic psoriasis, unspecified Category: Medical Plan: #PsO/PsA Patient is a 68-year-old female with psoriasis complicated by psoriatic arthritis. Psoriasis plaques are doing better on golimumab infusions. No evidence of active psoriatic arthritis on exam today. Plan - Continue Golimumab infusions - Continue MTx 15mg weekly - Leucovorin 10mg weekly - Labs today: CBC, CMP, ESR, CRP, hepatitis panel, T spot - RTC 4 months - Labs before visit: CBC, CMP, ESR, CRP, hepatitis panel, T spot (2) Arthritis of carpometacarpal (CMC) joint of right thumb: Code(s): M18.11 - Unilateral primary osteoarthritis of first carpometacarpal joint, right hand Category: Medical Plan: #Right 1st CMC OA Patient with significant right 1st CMC OA which is the source of significant pain. Status post injection today Plan - Topical diclofenac 1% qid - CMC splint (3) Arthritis of carpometacarpal (CMC) joint of left thumb: Code(s): M18.12 - Unilateral primary osteoarthritis of first carpometacarpal joint, left hand Category: Medical Plan: #Left 1st CMC OA Patient with left 1st CMC OA. Not as bad as the 1st. 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 I recommended topical Diclofenac 4 times a day and splinting when she can Plan - Topical diclofenac 1% qid - CMC splint (4) Psoriasis: Code(s): L40.9 - Psoriasis, unspecified Category: Medical Plan: #PsO Improving on golimumab (5) bar useful or busser (current) use of immunosuppressive biologic: Code(s): Z79.620 - intermediate (current) use of immunosuppressive biologic Category: Medical Plan: #Long-term Use of TNF Inhibitors: Golimumab Discussed with the patient the benefits and risks of TNF inhibitors for the management of the rheumatic condition Benefits include reduce pain, maintenance of remission and reduction of flares as well as ?progression of the disease Risks include injection sites/infusion reactions, serious infections (such as bacterial infections, opportunistic infections), malignancy, delaminating syndromes, autoimmune phenomena, CHF exacerbations, palmar plantar psoriasis and cytopenias Recommended rotating injection sites, and holding medication during and for up to 1 week after resolution of a febrile illness or open skin wound (6) bar useful or busser methotrexate user: Code(s): Z79.631 - bar useful or busser (current) use of antimetabolite agent Category: Medical Plan: #Long-term Current Use of Methotrexate Discussed with patient the benefits and risks of methotrexate for managing their rheumatic condition Benefits include reduced pain, reduced mortality, maintenance of remission and reduction of flares Risks include oral ulcers, photosensitivity, hepatotoxicity, hematologic toxicity, pneumonitis, flu-like symptoms (especially day after administration), nodulosis, lymphomas ? Limit alcohol and avoid Bactrim ? Monitoring: ?CBC, BMP, LFTs every 3-4 months and hepatitis serologies as needed Plan I spent 45 minutes reviewing the record and labs, taking a history, examining the patient, discussing the treatment plan, ordering diagnostic work up, filling out disability paperwork and documenting in the medical record Orders: Orders AMB Joint Injection/Aspiration Today M18.11 - Unilateral primary osteoarthritis of first carpometacarpal joint, right hand Medications: New lidocaine (PF) 1 mL Infiltration ONCE 2 mL 0RF M18.11 - Unilateral primary osteoarthritis of first carpometacarpal joint, right hand Kenalog (triamcinolone acetonide) 20 mg (0.5 mL) intra-articular ONCE 0.5 mL 0RF NS M18.11 - Unilateral primary osteoarthritis of first carpometacarpal joint, right hand Coding Level of Care Code Est Pt Level 5 (49308) Complex EM visit Add On G2211 Diagnoses Psoriatic arthritis L40.50 Arthritis of carpometacarpal (CMC) joint of right thumb M18.11 Arthritis of carpometacarpal (CMC) joint of left thumb M18.12 Psoriasis L40.9 bar useful or busser (current) use of immunosuppressive biologic Z79.620 bar useful or busser methotrexate user Z79.631 CPT Codes Coding - - Small joint: 77580 - Small Joint ([id number])
--- OUTSIDE RECORDS SUMMARY | 2024-12-19 12:54 | XMS_ITS | Encounter Summary ---
Author Organization [facility] Address [address] [place] [address] Phone Care Team Providers Care City Sanitarian Name Role Phone Bernadine Rose Primary Care Provider [phone] Encounter Details Date Type Department Care Team (Late st Contact Info) Description 07/11/2024 Documentation Only [facility] [place], [address] [place] [phone] [place] Andrew [address] [place] [phone] Social History Tobacco Use Types Packs/Day Years [...] on filedocumented in this encounter Care Teams City Sanitarian Relationship Specialty Start Date End Date Bernadine Rose PA [address] [place] [address] PCP - General Physician Service Dispatcher 08/07/23 documented as of this encounter
--- OUTSIDE RECORDS SUMMARY | 2024-12-19 12:54 | XMS_ITS | Encounter Summary ---
Author Organization [facility] [place], Address [address] [place] [address] Phone Care Team Providers Care Assistant At Surgery Name Role Phone Bernadine Rose Primary Care Provider [phone] Encounter Details Date Type Department Care Team (Late st Contact Info) Description 06/04/2023 Documentation Only [facility] [place], - Tami Sheth [address] [phone] Radha Timmons NP [address] [place] [address] Social History Tobacco Use Types Packs/Day Years [...] on filedocumented in this encounter Care Teams Assistant At Surgery Relationship Specialty Start Date End Date Bernadine Rose PA [address] [place] [address] PCP - General Physician Motor And Generator Assembler 08/07/23 documented as of this encounter
--- OUTSIDE RECORDS SUMMARY | 2024-12-19 12:54 | XMS_ITS | Clinical Summary ---
Author Organization [facility] [place], Address [address] [place] [address] [place] [phone] Phone Care Team Providers Care Edge Gluer Name Role Phone Bernadine Rose Primary Care Provider [phone] Allergies Active Allergy Reactions Criticality Noted Date [...] 08/07/2023 Stage 3 chronic kidney disease 08/07/2023 Social History Tobacco Use Types Packs/Day Years Used Date Smoking Tobacco: Never Assessed Comments Unknown Sex and Gender Information Value Date Recorded Sex Assigned at Not on file Legal Sex Female 11:57 AM EDT Gender Identity Not on file Sexual Orientation Not on file Plan of Treatment Health Maintenance Due Date Last Done Comments Breast Cancer Screening 1955 Pneumococcal Vaccine: 50+ Ye ars (1 of 2 - PCV) 10/31/1974 Colorectal Cancer Screening: Annual FOBT 10/31/2004 Colorectal Cancer Screening: Colonoscopy 10/31/2004 Colorectal Cancer Screening: Sigmoidoscopy 10/31/2004 Influenza Vaccine (Season Ended) 2025 Hepatitis B Vaccine Aged Out No longe r eligible based on patient's age to complete this topic Insurance [place] Care Teams Edge Gluer Relationship Specialty Start Date End Date Bernadine Rose PA [address] [place] [address] PCP - General Physician Sketch Liner 08/07/23
--- OUTSIDE RECORDS SUMMARY | 2024-12-19 12:54 | XMS_ITS | Clinical Summary ---
Author Organization [facility] Address [address] [place] [address] Care Team Providers Care Client Solutions Manager Name Role Phone Unavailable Primary Care Provider [...]
--- OUTSIDE RECORDS SUMMARY | 2024-12-19 12:54 | XMS_ITS | Encounter Summary ---
Author Organization [facility] Address [address] [place] [address] Phone Care Team Providers Care Seat Installer Name Role Phone Bernadine Rose Primary Care Provider [phone] Encounter Details Date Type Department Care Team (Late st Contact Info) Description 09/03/2023 Documentation Only [facility] [place], [address] [place] [phone] Linda Wagner [address] [place] [phone] Social History Tobacco Use Types Packs/Day Years [...] on filedocumented in this encounter Care Teams Seat Installer Relationship Specialty Start Date End Date Bernadine Rose PA [address] [place] [address] PCP - General Physician Cashier Wrapper 08/07/23 documented as of this encounter
--- OUTSIDE RECORDS SUMMARY | 2024-12-19 12:54 | XMS_ITS | Data Portability ---
Author Organization [place] - [facility], Allergy Address [address] [address] Care Team Providers Care Metal Miner Blasting Name Role Phone CHARLES LEWIS Referring Provider [phone] Assessment Encounter Date Assessment Date Assessment LastModified [...] Orders prednisone 10 mg tablet 2023 024 [facility]acy #[id number], [address] [place], [address], 4 15:59:30 Patient TargetsNo targets recorded. Patient InstructionsNo instructions recorded. Reason for Referral None Reported. Results Created Date Observation Date Name Description Value Unit Range Abnormal Flag Note LastModifiedBy Organization Detail LastModifiedTime 06/24/20 24 audio gram No observ ation record ed. [facility] Not Available 2023 15:58:30 09/15/19 25 09/14/2024 CT, maxil lofac ial, w/o contr ast No observ ation record ed. [place] [facility] [address] [address], [place], [address], 09/16/2024 10:27:45 09/16/19 25 09/11/2024 CT, maxil lofac ial, w/o contr ast No observ ation record ed. [facility] [address] [address], [place], [address], 09/16/2024 09:30:36 Result Notes None recorded. Problems Name Problem SNOMED Code Status Onset Date Resolution Date Notes Provider Name and Address Organization Details Recorded Time Impacted cerumen in right ear 5436760360262 103 Active 2023 PATTI KHOURY PA-C [address], [place], [address], [facility] - [facility] 4 15:21:30 Abnormal auditory perception 12348242 Active 2023 PATTI KHOURY PA-C [address], [place], [address], [facility] - [facility] 4 15:21:36 Tinnitus of right ear 3486348052488 Active 2023 PATTI KHOURY PA-C [address], [place], [address], [facility] - [facility] 4 13:45:00 Nasal congestion 42917047 Active 2023 PATTI KHOURY PA-C [address], [place], [address], [facility] - [facility] 4 14:20:45 Posterior rhinorrhea 75429344 Active 2023 PATTI KHOURY PA-C [address], [place], [address], [facility] - [facility] 4 14:20:52 Allergic rhinitis 25673127 Active 2024 PATTI KHOURY PA-C [address], [place], [address], [facility] - [facility] 5 11:49:04 Problem Notes None recorded. Procedures Surgical History Date Name Laterality Status Provider Name and Address Organization Details Recorded Time 4 Comp Audio with Tymps - 58515 & 28820 completed Krysten CLEVELAND 100 [facility],[address] [address], [place], [address], [place] - [facility] 06/24/2024 13:58:28 4 Cerumen removal with microscope right completed PATTI KHOURY PA-C 100 [facility] 100, [place], [address], [facility] - [facility] 04/18/2024 15:20:50 Imaging Results Imaging Date Name Status LastModified by Organiz ation Details LastModified Time 06/24/2024 audiogram completed [facility] Information no t available 06/24/2024 15:58:30 09/14/2024 CT, maxillofacial, w/o contrast completed ARIK [facility] [address], [address], 09/16/2024 10:27:45 09/11/2024 CT, maxillofacial, w/o contrast completed BAR[facility] [address], [address], 09/16/2024 09:30:36 Procedure Notes None recorded. Medical Equipment None Reported. Allergies Allergen ID Allergen Name Allergen Category Reaction Reaction Severity Criticality Documentation Date Start Date Code Code System Note Provider Name and Address Organization Details Recorded Time 852769 Augmentin medicatio n Not available Not available Not available 04/18/2024 88953 2 RxNorm Anastasiia gonzalez [place] - [facility] 4 13:59:49 744788 pravastat in medicatio n Not available Not available Not available 04/18/2024 23599 RxNorm Anastasiia gonzalez [place] - [facility] 13:59:59 Medications Name Sig Start Date [...] Updated DateTime 04/18/2024 160.02 cm 38.8 kg/m2 67350.73 g Anastasiia Ruggierojey [facility] 04/18/2024 13:59:39 Date Recorded Body height Body mass index (BMI) Body weight Provider Name and Address Organization Details Last Updated DateTime 06/24/2024 160.02 cm 38.8 kg/m2 06039.73 g May Mayur [facility] 06/24/2024 13:40:00 Date Recorded Body height Body mass index (BMI) Body weight Provider Name and Address Organization Details Last Updated DateTime 08/16/2024 160.02 cm 38.8 kg/m2 54321.73 g Linda Mathews [facility] 08/16/2024 11:29:26 Social History None recorded. Functional Status None recorded. Mental Status None recorded. Family History Nothing Reported. Medical History No medical history recorded. Gynecological HistoryNo gynecological history recorded. Obstetrics History GPAL:G 0 P 0 0 0 0 Past Encounters Encounter ID Performer Location Encounter Start Date Encounter Closed Date Diagnosis/Indication Diagnosis SNOMED-CT Code Diagnosis ICD10 Code Diagnosis Note [id number] PATTI KHOURY PA-C [facility] on [address] [place] [phone] 04/18/2024 13:52:55 04/18/2024 14:45:30 Impacted cerumen in right ear 6326905303 712253 H61.21 Abnormal a uditory perception 04389559 H93.299 [id number] PATTI KHOURY PA-C [facility] on [address] [place] [address] 06/24/2024 13:37:55 06/24/2024 14:27:57 Tinnitus of right ear 4569544620 108 H93.11 Audiologic al evaluation results:Ri ght [...] not maintain a hermetic seal}} Nasal congestion 1541612 0 R09.81 Posterior rhinorrhea 758 28592 R09.82 [id number] PATTI KHOURY PA-C [facility] [address] [address] 08/16/2024 11:19:30 08/16/2024 11:51:55 Allergic rhinitis 18729396 J30.9 Nasal congestion 3647144 0 R09.81 Health Concerns Section Related Observation LastModified by Organization Detai ls LastModified Time None Recorded Concern Status LastModified by Organization Details LastModified Time None Recorded Advance Directives Directive None Recorded Payers Insurance Date Sequence Insurance Name Policy Number Policy Dunham Covered Member ID Dunham Member ID Guarantor Name 09/10/2024 1 [facility] Allison Turner [id number] Allison Bradford Pause Notes Date Note Type Note Provider [...] not prescribed ear drops. KUSH HAYES MD 100 [facility],[address], [address], [facility] 04/18/2024 17:38:25 06/24/2024 text/html 68 year [...] diagnosed with TMJ. KUSH HAYES MD 100 [facility],[address], [address], [facility] 06/27/2024 10:25:32 08/16/2024 text/html 68 year [...] interested in allergy testing. TIANA ORDOÑEZ MD 100 [facility],[address], [address], [facility] 08/16/2024 13:43:28 OBGyn Episode No OBEpisode recorded.
== END 2024-12-19 13:24 | disposition home or self-care (01) ==
LOC: HO.RHE 12:27
PROVIDERS: PCP Family Medicine; Visit Provider Student in an Organized Health Care Education/Training Program
DX: L40.50 Arthropathic psoriasis, unspecified (principal); M18.0 Bilateral primary osteoarthritis of first carpometacarpal joints; L40.9 Psoriasis, unspecified; Z79.620 Long term (current) use of immunosuppressive biologic; Z79.631 Long term (current) use of antimetabolite agent
CPT/HCPCS: 20600; 99215

== ENCOUNTER → 2024-12-19 12:27 | Outpatient (BNVA) | payer OTHER, SELFPAY | PROVIDERS: PCP Family Medicine; Visit Provider Student in an Organized Health Care Education/Training Program | DX: M18.0 Bilateral primary osteoarthritis of first carpometacarpal joints (principal); L40.9 Psoriasis, unspecified; L40.50 Arthropathic psoriasis, unspecified; Z79.620 Long term (current) use of immunosuppressive biologic; Z79.631 Long term (current) use of antimetabolite agent | CPT/HCPCS: 20600; J3300 ==

== ENCOUNTER 2025-04-13 08:06 | Outpatient (REF) | payer OTHER, SELFPAY ==
--- OUTSIDE RECORDS SUMMARY | 2025-04-13 08:21 | XMS_ITS | Encounter Summary ---
Author Organization [facility] Address [address] [place] [address] Phone Care Team Providers Care Solar Sales Associate Name Role Phone Manav Rose MD Primary Care Provider [phone] Manav Rose MD Primary Care Provider [phone] Manav Rose MD Primary Care Provider [phone] Reason for Referral * Occupational Therapy (Elective) - Closed Specialty Diagnoses / Procedures Referred By Rahul t Referred To Contact Occupational Therapy Diagnoses Encounter for rehabilitation Bernadine Rose PA Phone: tel: fax: [address] [address] Phone: tel: Referral ID Status Reason Start Date Expiration Date Visits Re quested Visits Authorized [id number] Closed 12/28/2020 08/09/2021 30 30 Encounter Details Date Type Department Care Team (Latest Contact Info) Description 12/28/2020 Transcribe Orders [facility] [address] [place] [address] Bernadine Rose PA [address] [place] [phone] Encounter for rehabilitation (Primary Dx) Social History Tobacco Use Types Packs/Day Years Used Date Smoking Tobacco: Former Cigarettes Q uit: 2008 Smokeless Tobacco: Never Alcohol Use Standard Drinks/Week Comments No 0 (1 standard drink = 0.6 oz pur e alcohol) Comments Unknown Sex and Gender Information Value Date Recorded Sex Assigned at Female 11/18/2022 8:42 AM EDT Legal Sex Female 9:55 PM EDT Gender Identity Female 11/18/2022 8:42 AM EDT Sexual Orientation Not on file documented as of this encounter Plan of Treatment Upcoming Encounters Date Type Department Care Team (Late st Contact Info) Description 09/05/2025 2:30 PM EST Office Visit [facility] All[facility] [address] [place] [address] Ryan Walker MD [address] [place] [phone] [email or web address] Scheduled Referrals Name Type Priority Associated Diagnoses Orde r Schedule Ambulatory referral to [facility] Occupational Therapy Outpatient Referral Routine Encounter for rehabilitation Ordered: 12/28/2020 documented as of this encounter Visit Diagnoses Diagnosis Encounter for rehabilitation- Primary documented in this encounter Additional Health Concerns Infection Onset Date Last Indicated Resolved Time CoV-Risk 05/28/2022 05/28/2022 06/08/2022 1:22 AM EDT documented as of this encounter Care Teams Solar Sales Associate Relationship Specialty Start Date End Date Manav Rose MD [email or web address] PCP - General Family Medicine 03/10/18 09/21/23 Manav Rose MD PCP - General Family Medicine 09/22/23 12/21/23 Manav Rose MD [address] [place] [phone] [email or web address] PCP - General Family Medicine 12/22/23 documented as of this encounter Additional Source Comments The information contained in this document represents components of the legal health record. It is not the complete legal health record.[facility]
--- OUTSIDE RECORDS SUMMARY | 2025-04-13 08:21 | XMS_ITS | Encounter Summary ---
Author Organization [facility] Address [address] [place] [address] [place] [address] Phone Care Team Providers Care Sanitation Lead Name Role Phone Manav Rose MD Primary Care Provider [phone] Manav Rose MD Primary Care Provider [phone] Manav Rose MD Primary Care Provider [phone] Encounter Details Date Type Department Care Team (Late Contact Info) Description 10/18/2020 Procedure Pass [facility] Endoscopy Admitting Dept Virtual Department [address] [place] [id number] Social History Tobacco Use Types Packs/Day Years [...] Encounters Date Type Department Care Team (Late Contact Info) Description 09/05/2025 2:30 PM EST Office Visit [facility], Allergy and Critical Care Medicine [address] [place] [address] Ryan Walker MD 10 [facility] 2nd [place] [address] documented as of this encounter Visit Diagnoses Not on filedocumented in this encounter Additional Health Concerns Infection Onset Date Last Indicated Resolved Time CoV-Risk 05/28/2022 05/28/2022 06/08/2022 1:22 AM EDT documented as of this encounter Care Teams Sanitation Lead Relationship Specialty Start Date End Date Manav Rose MD [email or web address] PCP - General Family Medicine 03/10/18 09/21/23 Manav Rose MD [email or web address] PCP - General Family Medicine 09/22/23 12/21/23 Manav Rose MD [address] [place] [id number] [email or web address] PCP - General Family Medicine 12/22/23 documented as of this encounter Additional Source Comments The information contained in this document represents components of the legal health record. It is not the complete legal health record.[facility]
--- OUTSIDE RECORDS SUMMARY | 2025-04-13 08:21 | XMS_ITS | Clinical Summary ---
Author Organization [facility] Address [address] [place] [address] Phone Care Team Providers Care Long Goods Drier Name Role Phone Manav Lewis MD Primary Care Provider [phone] Allergies Active Allergy Reactions Criticality Noted Date Comments Amoxicillin-Pot Clavulanate Rash Low 03/10/20 18 Tolerates Penacillin Pravastatin Myositis High 05/28/2022 Medications traZODone (DESYREL) 50 MG tablet Take 50 mg by mouth nightly. Active atorvastatin (LIPITOR) 10 MG tablet 07/11/20 19 Active DULoxetine (CYMBALTA) 60 MG capsule 10/15/19 21 Active potassium chloride (KLOR-CON) 20 mEq TbER ER tablet Take 20 mEq by mouth daily. 09/25/19 21 Active lisinopril (PRINIVIL,ZESTRI L) 10 MG tablet 10/15/19 21 Active famotidine (PEPCID) 40 MG tablet Take 1 tablet by mouth 2 (two) times a day. 03/24/20 23 Active folic acid (FOLVITE) 1 MG tablet Take 1 tablet by mouth every morning. 03/23/20 23 Active leucovorin (WELLCOVORIN) 5 mg tablet TAKE 1 TABLET ORALLY EVERY WEEK USE THE DAY AFTER METHOTREXATE 05/20/20 23 Active albuterol 90 mcg/actuation inhaler Inhale 2 puffs into the lungs every 4 (four) hours as needed. 06/20/20 23 Active levalbuterol (XOPENEX) 1.25 mg/3 mL nebulizer solutionIndicati ons:Mild persistent asthma, unspecified whether complicated Take 3 mL (1.25 mg total) by nebulization every 4 (four) hours as needed for wheezing or shortness of breath/dyspnea. 180 mL 1 12/21/19 24 Active fluticasone propionate (FLONASE) 50 mcg/actuation nasal spray INSTILL 2 SPRAYS BY INTRANASAL ROUTE EVERY DAY 03/15/20 24 Active acetic acid-hydrocortis one (VOSOL-HC) otic solution 05/07/20 24 Active loratadine-pseud oephedrine (CLARITIN-D 24-HOUR) 10-240 mg per 24 hr tablet Take 1 tablet by mouth daily. Active triamcinolone acetonide 0.1 % cream APPLY A THIN LAYER TO AFFECTED AREA TWICE A DAY FOR 2 WEEKS Active BREO ELLIPTA 200-25 mcg/dose inhalerIndicatio ns:Mild persistent asthma with acute exacerbation TAKE 1 PUFF BY MOUTH EVERY DAY 60 each 8 08/16/19 25 Active methotrexate sodium 25 mg/mL injection once a week. Active meclizine (ANTIVERT) 25 mg tablet Take 25 mg by mouth daily as needed. Active clobetasol (TEMOVATE) 0.05 % cream 1 APPL TOPICALLY 2 TIMES A DAY DO NOT APPLY ON FACE OR INTERTRIGINOUS AREAS Active chlorthalidone (HYGROTON) 25 MG tablet Take 1 tablet by mouth every morning. 10/23/19 25 Active Active Problems Problem Noted Date Diagnosed Date Chronic rhinitis 01/03/2025 Assessment & Plan (01/03/2025 3:08 PM EDT): Chronic rhinitis presumed allergic on loratadine and twice daily Flonase. Given excess dryness, recommended decrease Flonase to once daily. Monitor for change in symptoms. Solitary pulmonary nodule on lung CT 08/13/2023 Assessment & Plan (01/03/2025 3:07 PM EDT): Scattered small pulmonary nodules either related to prior tobacco use or possibly psoriatic arthritis. 5 mm right upper lobe nodule stable over last scans. Will plan for a 1 year follow-up and if continues to be stable may be sufficient to discontinue monitoring. Assessment & Plan (08/13/2023 4:09 PM EST): 5 and 6 mm pulmonary nodules, likely benign. However, given her 20+ pack year smoking history, reasonable to monitor. Will plan repeat CT in 12 months. Chronic cough 08/13/2023 Assessment & Plan (08/13/2023 4:10 PM EST): 2 to 3 years of persistent cough, triggered by talking, laughing or singing. Description most suggestive of irritable larynx syndrome. Whether there is additional triggers such as GERD remains unknown. Since it seems to respond to albuterol, will continue to monitor on current asthma regimen. If fails to resolve however, consider further workup. Abnormal diffusion capacity determined by pulmonary function test 06/10/2023 Assessment & Plan (01/03/2025 3:07 PM EDT): Mildly reduced DLCO on PFTs, likely based on underlying emphysema given significant tobacco exposure history. No further workup necessary. Assessment & Plan (12/21/2023 9:33 AM EDT): Suspect multifactorial given known interstitial disease on CT and no pulm hypertension on echo. May be combination of body habitus and chronic anemia though she does not recall her exact hemoglobin level. Plan repeat PFTs current illness has resolved. Assessment & Plan (08/13/2023 4:09 PM EST): Mildly reduced diffusion capacity of unclear etiology. Does correct for volume so may be due to her body habitus. However, will check echocardiogram to rule out pulmonary hypertension as an alternative etiology. Assessment & Plan (06/10/2023 9:22 AM EDT): Isolated reduced diffusion capacity on PFT could be due to underlying emphysema given patient's 20+ pack year smoking history, interstitial disease, or pulmonary vascular disease. Recommend start with noncontrast chest CT and if unremarkable, will pursue echocardiogram. Mild persistent asthma with acute exacerbation Overview (06/10/2023): controlled with meds Assessment & Plan (01/03/2025 3:06 PM EDT): Well-controlled on high-dose Breo Ellipta. Will continue for now. If no issues at follow-up, consider decreasing to lower dose Breo. Assessment & Plan (12/21/2023 9:34 AM EDT): Likely acute viral versus allergic upper respiratory illness with worsening lower respiratory cough and sputum production. Currently on azithromycin for possible infection. Was given low-dose prednisone with minimal improvement. Will increase the prednisone dose and recommend a sputum culture if fails to resolve. Continue high-dose Breo Ellipta and as needed albuterol MDI. Instead of albuterol in the nebulizer which causes shakiness, will change to levalbuterol. Assessment & Plan (06/10/2023 9:21 AM EDT): Symptomatically appears under control with medium dose Flovent alone. Spirometry on PFT without evidence for bronc reactivity. I will try stepping up therapy to medium to high-dose ICS/LABA to see if it improves dyspnea. Prescription sent for high-dose Breo Ellipta 1 puff once daily. However, not aware of insurance formulary and thus may need to modify based on those restrictions. Resolved Problems Problem Noted Date Diagnosed Date Resolved Date Dyspnea 06/10/2023 12/21/2023 Assessment & Plan (08/13/2023 4:08 PM EST): Significant improvement in chronic dyspnea with start of high-dose ICS/LAMA, suggesting this may represent inadequately controlled asthma. Will continue Breo Ellipta in place of Flovent. Continue albuterol as needed. Monitor for ongoing improvement. Assessment & Plan (06/10/2023 9:20 AM EDT): Exertional dyspnea following COVID-19 infection April 2020 with slow improvement but subsequent plateau. No associated symptoms this seems to respond to albuterol. Differential is broad, certainly could include inadequately controlled asthma or residual interstitial disease as suggested on chest x-ray and possibly by PFT. Given her symptomatic improvement with albuterol, recommend stepup therapy for asthma as a first trial. If no improvement, would expand work-up to include stress testing and echocardiogram. Immunizations Immunization Administration Dates Next Due COVID-19 (Pre-06/01) Moderna Vaccine, mRNA, PF 12/28/2021 COVID-19 (Pre-06/01) Pfizer Vaccine, mRNA, PF 04/28/2021,08/28/2020,08/07/2020 COVID-19 Moderna Spikevax Vaccine 12+ 05/17/2024 ,11/21/2023 INFLUENZA, SPLIT VIRUS, TRIV ALENT W/ PRESERVATIVE IM 05/13/2011 Influenza High-Dose Quadriva lent Preservative Free IM 05/09/2023,04/22/2023,05/07/2022,05/31 Influenza Quadrivalent Prese rvative Free IM 04/19/2020,05/24/2019,05/04/2018,05/11 Influenza Quadrivalent w/ Pr eservative IM 05/24/2020,05/24/2019 Influenza Trivalent Adjuvant ed Preservative free IM 05/10/2024 Influenza, Unspecified Formulation 05/24/2015,,05/31/2007 Pneumococcal polysaccharide PPSV23 12/06/2020 Td (adult),2 Lf Tetanus Toxo id, PF, Adsorbed 11/30/2023 Td, unspecified formulation 12/31/2001 Tdap 02/22/2013 Zoster live 06/26/2016 Zoster recombinant 11/21/2023,12/28/2021 Family History Medical History Relation Comments Asthma Brother Lung cancer Sister Asthma Son Relation Status Comments Brother Sister Son Alive Social History Tobacco Use Types Packs/Day Years Used Date Smoking Tobacco: Former Cigarettes 1.5 15 1 993 - 2008 Smokeless Tobacco: Never Tobacco Cessation:Counseling Given: Not Answered Alcohol Use Standard Drinks/Week Comments No 0 (1 standard drink = 0.6 oz pur e alcohol) Education Answer Date Recorded Are you interested in more education? Not on claudia e 12/05/2022 Are you concerned about learning? Not on file 12/05/2022 No 12/05/2022 No 12/05/2022 Digital Access Answer Date Recorded No 01/03/2023 No 01/03/2023 Reliable internet access at home? Not on file 01/03/2023 Device with a working camera? Not on file Intimate Partner Violence Answer Date R ecorded Are you denied basic needs s uch as food, clothing, or medical care? No 06/14/2024 In the past 12 months have y ou been in a relationship with a person who hurts, threatens, or tries to control you? No 06/14/2024 Are you denied basic needs s uch as food, clothing, or medical care? No 06/14/2024 In the past 12 months have y ou been in a relationship with a person who hurts, threatens, or tries to control you? No 06/14/2024 Comments No Sex and Gender Information Value Date Recorded Sex Assigned at Female 11/18/2022 8:42 AM EDT Legal Sex Female 9:55 PM EDT Gender Identity Female 11/18/2022 8:42 AM EDT Sexual Orientation Not on file Last Filed Vital Signs Vital Sign Reading Time Taken Comments Blood Pressure 112/56 01/03/2025 2:25 PM EDT Pulse 71 01/03/2025 2:25 PM EDT Temperature 36.3 C (97.3 F) 01/03/2025 2:25 PM EDT Respiratory Rate 17 07/21/2024 6:03 PM EST Oxygen Saturation 97% 01/03/2025 2:25 PM EDT Inhaled Oxygen Concentration - - Weight 100.6 kg (221 lb 12.8 oz) 01/03/2025 2:25 PM EDT Height 162.6 cm (5' 4 ) 01/03/2025 2:25 PM EDT Body Mass Index 38.07 01/03/2025 2:25 PM EDT Plan of Treatment Upcoming Encounters Date Type Department Care Team (Late st Contact Info) Description 09/05/2025 2:30 PM EST Office Visit [facility] Pul[facility], Allergy and Critical Care Medicine [address] [place] [id number] Ryan Walker MD 10 [facility] 2nd [place] [address] Health Maintenance Due Date Last Done Comments LIPID PANEL 1955 DEPRESSION SCREENING 1967 HEPATITIS C SCREENING 10/31/1973 MAMMOGRAM 1995 COLOGUARD 10/31/2000 FIT TEST 10/31/2000 FOBT 10/31/2000 SIGMOIDOSCOPY 10/31/2000 VIRTUAL COLONOSCOPY 10/31/2000 RSV VACCINE (1 - Risk 60-74 years 1-dose series) 2015 OSTEOPOROSIS SCREENING INITIAL (ONE-TIME) 10/31/2020 PNEUMOCOCCAL VACCINES (50+ years) (2 of 2 - PCV) 12/06/2021 12/06/2020 CREATININE LEVEL 05/30/2023 05/30/2022, , 08/14/2018 POTASSIUM LEVEL 05/30/2023 05/30/2022, 05/10, 08/14/2018 INFLUENZA VACCINE (#1) 2025 , 05/09/2023, 04/22/2023, Additional history exists COVID-19 VACCINE (8 - Pfizer risk 2023- season) 2025 05/17/2024, 11/21/2023, 12/28/2021, Additional history exists SCREENING FOR DIABETES 05/28/2025 05/28/2022 Adult Td,Tdap Booster 11/29/2033 11/30/2023 , 02/22/2013, 12/31/2001 COLONOSCOPY 06/14/2034 06/14/2024, 10/08, 03/10/2018 COLORECTAL CANCER SCREENING 06/14/2034 ZOSTER VACCINES Completed 11/21/2023, 12/09, 06/26/2016 SMOKING STATUS SCREENING (Once After 26 Yrs) Completed 01/03/2025 HEPATITIS A VACCINES Aged Out No long er eligible based on patient's age to complete this topic HIB VACCINES Aged Out No longer eligi ble based on patient's age to complete this topic MENINGOCOCCAL VACCINES (ACWY) Aged Out No longer eligible based on patient's age to complete this topic MENINGOCOCCAL VACCINES (B) Aged Out N o longer eligible based on patient's age to complete this topic Medical Devices Implanted Type Area Button Riveter Device Identifier Shelf Expiration Date Model / Serial / Lot Clip Hemostasis 16mm /5ea - [id number] Implanted:Qty: 2 on 06/14/2024 by Magdaleno Kelley MD at [facility] 004 TechnologiesAUR[facility]ST H[facility]PITALBuilding[facility] 12/30/2026 [id number] / / [id number] Description:Recto sigmoid Procedures Procedure Name Priority Date/Time Associated Diagnosis Comments ENDOSCOPY, COLON 06/14/2024 9:51 AM EST BASIC METABOLIC PANEL STAT 05/30/2022 5:45 PM EDT from Last 3 Months or Most Recently Relevant to Health Maintenance Results * ENDOSCOPY, COLON (06/14/2024 9:51 AM EST) Narrative Transcriptions Magdaleno Kelley MD - 06/14/2024 9:51 AM EST [facility] Patient Name: Allison Turner Attending MD:: MAGDALENO KELLEY MD, , Procedure Date: 06/14/2024 9:51 AM Date of : 1955 Age: 68 Admit Type: Outpatient Gender: Female Room: [place] [address] Referring MD: MANAV LEWIS MD Exam Type: Colonoscopy Indications: High risk colon cancer surveillance: Personalhistory of colonic polyps, Family history of colon cancerin multiple first-degree relatives Medications: Monitored Anesthesia Care Procedure: Informed consent was obtained from the patientafter discussion of the indications, limitations, alternatives, benefits, and risks of the procedure. Risks specifically discussed include but are not limited to medication reactions, missed lesions, bleeding, perforation, or the need for emergent surgery. Throughout the procedure, the patient's blood pressure, pulse, end-tidal CO2, and oxygensaturations were monitored continuously. The Olympus adult variable colonoscope [id number] #4 was introduced through the anus and advanced to the cecum, identified by appendiceal orifice andileocecal valve. The colonoscopy was performed without difficulty. The patient tolerated the procedurewell. The quality of the bowel preparation was excellent. Anatomical landmarks were photographed. Complications: No immediate complications. Estimated blood loss: Minimal. Findings: Multiple small-mouthed diverticula were found inthe sigmoid colon. Skin tags were found on perianal exam. A 10 mm polyp was found in the recto-sigmoid colon. The polyp was sessile. The polyp was removed with a cold snare. Resection and retrieval were complete.To prevent bleeding after the polypectomy, twohemostatic clips were successfully placed (MR conditional).There was no bleeding at the end of the procedure. Internal hemorrhoids were found duringretroflexion. The hemorrhoids were moderate. The exam was otherwise normal throughout theexamined colon. Impression: - Mild diverticulosis in the sigmoid colon. - Perianal skin tags found on perianal exam. - One 10 mm polyp at the recto-sigmoid colon,removed with a cold snare. Resected and retrieved. Clips(MR conditional) were placed. - Internal hemorrhoids. Recommendation: - Discharge patient to home. - Await pathology results. - Repeat colonoscopy in 3 years for surveillance. MAGDALENO KELLEY MD, 06/14/2024 10:15:01 AM This report has been signed electronically. Number of Addenda: 0 Note Initiated On: 06/14/2024 9:51 AM Procedure Code(s): --- Professional --- 90629, Colonoscopy, flexible; with removal of tumor(s), polyp(s), or other lesion(s) by snare technique --- Technical --- 59454, Colonoscopy, flexible; with removal of tumor(s), polyp(s), or other lesion(s) by snare technique Diagnosis Code(s): --- Professional --- Z86.010, Personal history of colonic polyps K64.8, Other hemorrhoids D12.7, Benign neoplasm of rectosigmoid junction K64.4, Residual hemorrhoidal skin tags Z80.0, Family history of malignant neoplasm of digestive organs K57.30, Diverticulosis of large intestine without perforation or abscess without bleeding --- Technical --- Z86.010, Personal history of colonic polyps K64.8, Other hemorrhoids D12.7, Benign neoplasm of rectosigmoid junction K64.4, Residual hemorrhoidal skin tags Z80.0, Family history of malignant neoplasm of digestive organs K57.30, Diverticulosis of large intestine without perforation or abscess without bleeding CPT copyright 2021 [employer]. All rights reserved. The codes documented in this report are preliminary and upon compressor operator portable reviewmay be revised to meet current compliance requirements. Procedure Date: 06/14/2024 9:51:[address] [place] [phone] us Manav Lewis MD GI PROCEDURE ORDERABLES Final Result * (ABNORMAL) Basic metabolic panel (05/30/2022 5:45 PM EDT) SODIUM 135 133 - 146 mmol/L [facility] CHLORIDE 98 96 - 108 mmol/L [facility] POTASSIUM 4.8 3.3 - 5.1 mmol/L [facility] CO2 25 21 - 35 mmol/L [facility] BUN 28(H) 6 - 19 mg/dL [facility] CREATININE 1.00 0.5 - 1.5 mg/dL [facility] GLUCOSE 127(H) 70 - 99 mg/dL [facility] CALCIUM 10.3 8.4 - 10.3 mg/dL [facility] EGFR 62 >59 mL/min/1.7 3m2 [facility] Comment:Estimated glomerular filtration rate calculated using the CKD-EPI refit equation. ANION GAP 17 10 - 20 mmol/L [facility] Blood 05/30/2022 5:45 PM EDT 05/30/2022 6:14 PM EDT us Kelsie HERNANDEZ LAB BLOOD ORDERABLES Final Result [facility] [address] [place] [address] from Last 3 Months or Most Recently Relevant to Health Maintenance [facility] EPO [facility] POS EPO MEDICARE A [address] [place], [place] [address] POS EPO MEDICARE A [facility] POS EPO [place] [address] [place] [address] POS EPO MEDICARE A [facility] POS EPO MEDICARE A [facility] POS EPO [facility] EPO [facility] EPO Care Teams Long Goods Drier Relationship Specialty Start Date End Date Manav Lewis MD [address] [place] [phone] PCP - General Family Medicine 12/22/23 Additional Source Comments The information contained in this document represents components of the legal health record. It is not the complete legal health record.[facility]
--- OUTSIDE RECORDS SUMMARY | 2025-04-13 08:21 | XMS_ITS | Encounter Summary ---
Author Organization [facility] Address [address] [place] [address] Phone Care Team Providers Care Slat Basket Maker Name Role Phone Manav Rose MD Primary Care Provider [phone] Manav Rose MD Primary Care Provider [phone] Manav Rose MD Primary Care Provider [phone] Encounter Details Date Type Department Care Team (Late Contact Info) Description 11/17/2022 Transcribe Orders [facility]FT [facility] [address] [place] [address] Manav Rose MD [address] [place] [address] [phone] [email or web address] Social History Tobacco Use Types Packs/Day Years [...] Upcoming Encounters Date Type Department Care Team ([facility] Contact Info) Description 09/05/2025 2:30 PM EST Office Visit [facility] Pulmonary, Allergy and Critical Care Medicine [address] [place], [place] [phone] Ryan Walker MD [address] [place] [phone] [email or web address] documented as of this encounter Visit Diagnoses Not on filedocumented in this encounter Care Teams Slat Basket Maker Relationship Specialty Start Date End Date Manav Rose MD [email or web address] PCP - General Family Medicine 03/10/18 09/21/23 Manav Rose MD [email or web address] PCP - General Family Medicine 09/22/23 12/21/23 Manav Rose MD [address] [place] [address] [email or web address] PCP - General Family Medicine 12/22/23 documented as of this encounter Additional Source Comments The information contained in this document represents components of the legal health record. It is not the complete legal health record.[facility]
--- OUTSIDE RECORDS SUMMARY | 2025-04-13 08:22 | XMS_ITS | Encounter Summary ---
Author Organization [facility] Address [address] [place] [phone] Phone Care Team Providers Care Tip Cementer Name Role Phone Manav Rose MD Primary Care Provider [phone] Manav Rose MD Primary Care Provider [phone] Manav Rose MD Primary Care Provider [phone] Encounter Details Date Type Department Care Team (Latest Contact Info) Description 07/31/2020 Transcribe Orders Virtual Department [address] [place] [phone] Radha Timmons CNP [address] [place], [place] [phone] [email or web address] Fever, unspecified fever cause (Primary Dx); Muscle ache Social History Tobacco Use Types Packs/Day Years Used Date Smoking Tobacco: Never Smokeless Tobacco: Never Alcohol Use Standard Drinks/Week [...] Pulmonary, Allergy and Critical Care Medicine [address] [place], [place] [phone] Ryan Walker MD [address] [address] [email or web address] documented as of this encounter Visit Diagnoses Diagnosis Fever, unspecified fever cause- Primary Muscle ache Unspecified myalgia and myositis documented in this encounter Additional Health Concerns Infection Onset Date Last Indicated Resolved Time CoV-Risk 07/31/2020 07/31/2020 08/10/2020 1:28 AM EST CoV-Risk 05/28/2022 05/28/2022 06/08/2022 1:22 AM EDT documented as of this encounter Care Teams Tip Cementer Relationship Specialty Start Date End Date Manav Rose MD [email or web address] PCP - General Family Medicine 03/10/18 09/21/23 Manav Rose MD [email or web address] PCP - General Family Medicine 09/22/23 12/21/23 Manav Rose MD [address] [place] [phone] [email or web address] PCP - General Family Medicine 12/22/23 documented as of this encounter Additional Source Comments The information contained in this document represents components of the legal health record. It is not the complete legal health record.[facility]
--- OUTSIDE RECORDS SUMMARY | 2025-04-13 08:22 | XMS_ITS | Encounter Summary ---
Author Organization [facility] Address [address] [place] [address] Phone Care Team Providers Care Quality Process Engineer Name Role Phone Bernadine Rose Primary Care Provider [phone] Encounter Details Date Type Department Care Team (Late st Contact Info) Description 09/03/2023 Documentation Only [facility], [address] [place] [phone] Linda Wagner [address] [place] [phone] Social History Tobacco Use Types Packs/Day Years [...] on filedocumented in this encounter Care Teams Quality Process Engineer Relationship Specialty Start Date End Date Bernadine Rose PA [address] [place] [phone] PCP - General Physician Section Leader And Machine Setter 08/07/23 documented as of this encounter
--- OUTSIDE RECORDS SUMMARY | 2025-04-13 08:22 | XMS_ITS | Encounter Summary ---
Author Organization [facility] Address [address] [place] [address] Phone Care Team Providers Care Bottle Washer Name Role Phone Manav Rose MD Primary Care Provider [phone] Manav Rose MD Primary Care Provider [phone] Manav Rose MD Primary Care Provider [phone] Encounter Details Date Type Department Care Team (Late st Contact Info) Description 08/13/2023 Procedure Pass [facility], Ct Scan - [facility] 30 [place] [address] Social History Tobacco Use Types Packs/Day Years Used Date Smoking Tobacco: Former Cigarettes 1.5 15 1 993 - 2007 Smokeless Tobacco: Never Alcohol Use Standard Drinks/Week [...] with a working camera? Not on file Comments No Sex and Gender Information Value [...] Pulmonary, Allergy and Critical Care Medicine 10 [facility] [place] [address] Ryan Walker MD [address] [address] [email or web address] documented as of this encounter Visit Diagnoses Not on filedocumented in this encounter Care Teams Bottle Washer Relationship Specialty Start Date End Date Manav Rose MD [email or web address] PCP - General Family Medicine 03/10/18 09/21/23 Manav Rose MD [email or web address] PCP - General Family Medicine 09/22/23 12/21/23 Manav Rose MD [address] [place] [address] [email or web address] PCP - General Family Medicine 12/22/23 documented as of this encounter Additional Source Comments The information contained in this document represents components of the legal health record. It is not the complete legal health record.[facility]
--- OUTSIDE RECORDS SUMMARY | 2025-04-13 08:22 | XMS_ITS | Encounter Summary ---
Author Organization [facility] Address [address] [place] [address] Phone Care Team Providers Care Jewelry Internship Name Role Phone Manav Rose MD Primary Care Provider Encounter Details Date Type Department Care Team (Latest Contact Info) Description 06/09/2024 Transcribe Orders Virtual Department 30 [place] [address] Bernadine Rose PA 70 [place] [address] Stage 3a chronic kidney disease (CKD) (Primary Dx) Social History Tobacco Use Types [...] a working camera? Not on file Comments Unknown Sex and Gender Information Value [...] Pulmonary, Allergy and Critical Care Medicine 10 [facility] [place] [address] Ryan Walker MD [address] [place] [address] [email or web address] documented as of this encounter Results * US Kidneys (06/30/2024 8:25 AM EST) Anatomical Region Laterality Modality Abdomen, Kidney Ultrasound 06/30/2024 9:51 AM EST Impressions 06/30/2024 9:52 AM EST 1. No hydronephrosis or sonographically evident renal calculi. Narrative 06/30/2024 9:52 AM EST US KIDNEYS Referring clinician's provided indication for this examination in Epic: Outside Radiology Order; ckd TECHNIQUE: Kidney Ultrasound. COMPARISON: Chest CT 07/24/2023 FINDINGS: Right Kidney: Size: 11.3 cm Lobulated contour. No hydronephrosis or sonographically evident renal calculi. Left Kidney: Size: 9.7 cm Multiple lytic contour. No hydronephrosis or sonographically evident renal calculi. Bladder: The urinary bladder is incompletely distended and grossly unremarkable. Procedure Note Fara Swanson MD - 06/30/2024 US KIDNEYS Referring clinician's provided indication for this examination in Epic:Outside Radiology Order; ckd TECHNIQUE: Kidney Ultrasound. COMPARISON: Chest CT 07/24/2023 FINDINGS: Right Kidney: Size: 11.3 cm Lobulated contour. No hydronephrosis or sonographically evident renalcalculi. Left Kidney: Size: 9.7 cm Multiple lytic contour. No hydronephrosis or sonographically evidentrenal calculi. Bladder: The urinary bladder is incompletely distended and grosslyunremarkable. IMPRESSION: 1. No hydronephrosis or sonographically evident renal calculi. Bernadine HERNANDEZ IMG US RENAL Final Resu lt documented in this encounter Visit Diagnoses Diagnosis Stage 3a chronic kidney disease (CKD)- Primary Stage 3a chronic kidney disease (CKD) documented in this encounter Care Teams Jewelry Internship Relationship Specialty Start Date End Date Manav Rose MD [address] [place] [address] [email or web address] PCP - General Family Medicine 12/22/23 documented as of this encounter Additional Source Comments The information contained in this document represents components of the legal health record. It is not the complete legal health record.[facility]
--- OUTSIDE RECORDS SUMMARY | 2025-04-13 08:22 | XMS_ITS | Encounter Summary ---
Author Organization [facility] Address [address] [place] [address] Phone Care Team Providers Care Voice Professor Name Role Phone Bernadine Rose Primary Care Provider [phone] Encounter Details Date Type Department Care Team (Late st Contact Info) Description 07/11/2024 Documentation Only [facility], [address] [place] [address] Madison Andrew [address] [place] [phone] Social History Tobacco Use Types Packs/Day Years [...] on filedocumented in this encounter Care Teams Voice Professor Relationship Specialty Start Date End Date Bernadine Rose PA 70 [place] [address] PCP - General Physician Combat Engineer 08/07/23 documented as of this encounter
--- OUTSIDE RECORDS SUMMARY | 2025-04-13 08:22 | XMS_ITS | Encounter Summary ---
Author Organization [facility] Address [address] [place] [address] [place] [address] Phone Care Team Providers Care Spinning Bath Patroller Name Role Phone Manav Rose MD Primary Care Provider Encounter Details Date Type Department Care Team (Late st Contact Info) Description 06/14/2024 Procedure Pass [facility] Endoscopy Admitting Dept Virtual Department 30 [place] [address] Social History Tobacco Use Types Packs/Day Years Used Date Smoking Tobacco: Former Cigarettes 1.5 15 1 993 - 2008 Smokeless Tobacco: Never Alcohol Use Standard [...] Pulmonary, Allergy and Critical Care Medicine 10 [place] [address] Ryan Walker MD 10 [facility] 2nd [place] [address] [email or web address] documented as of this encounter Visit Diagnoses Not on filedocumented in this encounter Care Teams Spinning Bath Patroller Relationship Specialty Start Date End Date Manav Rose MD [address] [place] [address] [email or web address] PCP - General Family Medicine 12/22/23 documented as of this encounter Additional Source Comments The information contained in this document represents components of the legal health record. It is not the complete legal health record.[facility]
--- OUTSIDE RECORDS SUMMARY | 2025-04-13 08:22 | XMS_ITS | Clinical Summary ---
Author Organization [facility], Address [address] [place] [address] [place] [phone] Phone Care Team Providers Care Laborer Mine Name Role Phone Bernadine Rose Primary Care Provider [phone] Allergies Active Allergy Reactions Criticality Noted Date [...] Cancer Screening: Sigmoidoscopy 10/31/2004 Influenza Vaccine (#1) 2025 Hepatitis B Vaccine Aged Out No longe r eligible based on patient's age to complete this topic Insurance [place] Care Teams Laborer Mine Relationship Specialty Start Date End Date Bernadine Rose PA [address] [place] [phone] PCP - General Physician Pre Press Manager 08/07/23
--- OUTSIDE RECORDS SUMMARY | 2025-04-13 08:22 | XMS_ITS | Encounter Summary ---
Author Organization [facility], Address [address] [place] [address] Phone Care Team Providers Care Lead Software Tester Name Role Phone Bernadine Rose Primary Care Provider [phone] Encounter Details Date Type Department Care Team (Late st Contact Info) Description 06/04/2023 Documentation Only [facility], - Tami Sheth [address] [phone] Radha Timmons NP 70 [place] [address] Social History Tobacco Use Types Packs/Day Years [...] on filedocumented in this encounter Care Teams Lead Software Tester Relationship Specialty Start Date End Date Bernadine Rose PA 70 [place] [address] PCP - General Physician Esthetics Instructor 08/07/23 documented as of this encounter
--- OUTSIDE RECORDS SUMMARY | 2025-04-13 08:22 | XMS_ITS | Encounter Summary ---
Author Organization [facility] Address [address] [place] [address] Phone Care Team Providers Care Card Cutter Name Role Phone Manav Rose MD Primary Care Provider [phone] Manav Rose MD Primary Care Provider [phone] Manav Rose MD Primary Care Provider [phone] Encounter Details Date Type Department Care Team (Latest Contact Info) Description 12/25/2020 Transcribe Orders Virtual Department 30 [place] [address] Bernadine Rose PA 70 [place] [phone] Dizziness and giddiness (Primary Dx) Social History Tobacco Use Types [...] Pulmonary, Allergy and Critical Care Medicine 10 [place] [address] Ryan Walker MD [address] [address] documented as of this encounter Visit Diagnoses Diagnosis Dizziness and giddiness- Primary documented in this encounter Additional Health Concerns Infection Onset Date Last Indicated Resolved Time CoV-Risk 05/28/2022 05/28/2022 06/08/2022 1:22 AM EDT documented as of this encounter Care Teams Card Cutter Relationship Specialty Start Date End Date Manav Rose MD PCP - General Family Medicine 03/10/18 09/21/23 Manav Rose MD PCP - General Family Medicine 09/22/23 12/21/23 Manav Rose MD [address] [place] [address] PCP - General Family Medicine 12/22/23 documented as of this encounter Additional Source Comments The information contained in this document represents components of the legal health record. It is not the complete legal health record.[facility]
--- OUTSIDE RECORDS SUMMARY | 2025-04-13 08:23 | XMS_ITS | Encounter Summary ---
Author Organization [facility] Address [address] [place] [address] [place] [address] Phone Care Team Providers Care Laboratory Mechanic Helper Name Role Phone Manav Rose MD Primary Care Provider [phone] Manav Rose MD Primary Care Provider [phone] Manav Rose MD Primary Care Provider [phone] Encounter Details Date Type Department Care Team (Late st Contact Info) Description 06/10/2023 Procedure Pass [facility], Ct Scan - [facility] 30 [place] [address] Social History Tobacco Use Types Packs/Day Years [...] Pulmonary, Allergy and Critical Care Medicine 10 [place] [address] Ryan Walker MD [address] [place] [address] [email or web address] documented as of this encounter Visit Diagnoses Not on filedocumented in this encounter Care Teams Laboratory Mechanic Helper Relationship Specialty Start Date End Date Manav Rose MD [email or web address] PCP - General Family Medicine 03/10/18 09/21/23 Manav Rose MD [email or web address] PCP - General Family Medicine 09/22/23 12/21/23 Manav Rose MD [address] [place] [address] [email or web address] PCP - General Family Medicine 12/22/23 documented as of this encounter Additional Source Comments The information contained in this document represents components of the legal health record. It is not the complete legal health record.[facility]
--- OUTSIDE RECORDS SUMMARY | 2025-04-13 08:23 | XMS_ITS | Encounter Summary ---
Author Organization [facility] Address [address] [place] [address] Phone Care Team Providers Care Computer Typesetter Keyliner Name Role Phone Manav Rose MD Primary Care Provider [phone] Manav Rose MD Primary Care Provider [phone] Manav Rose MD Primary Care Provider [phone] Encounter Details Date Type Department Care Team (Latest Contact Info) Description 10/04/2019 Transcribe Orders Virtual Department 30 [place] [address] Bernadine Rose PA 70 [place] [phone] Persistent cough (Primary Dx) Social History Tobacco Use Types [...] Pulmonary, Allergy and Critical Care Medicine 10 [place], [place] [phone] Ryan Walker MD [address] [address] [email or web address] documented as of this encounter Visit Diagnoses Diagnosis Persistent cough- Primary documented in this encounter Additional Health Concerns Infection Onset Date Last Indicated Resolved Time CoV-Risk Comment:Referred for COVID-19 testing 11/23/2019 11/23/2019 12/07/2019 1:23 AM E DT CoV-Risk 07/31/2020 07/31/2020 08/10/2020 1:28 AM EST CoV-Risk 05/28/2022 05/28/2022 06/08/2022 1:22 AM EDT documented as of this encounter Care Teams Computer Typesetter Keyliner Relationship Specialty Start Date End Date Manav Rose MD [email or web address] PCP - General Family Medicine 03/10/18 09/21/23 Manav Rose MD [email or web address] PCP - General Family Medicine 09/22/23 12/21/23 Manav Rose MD [address] [place] [address] [email or web address] PCP - General Family Medicine 12/22/23 documented as of this encounter Additional Source Comments The information contained in this document represents components of the legal health record. It is not the complete legal health record.[facility]
--- OUTSIDE RECORDS SUMMARY | 2025-04-13 08:23 | XMS_ITS | Encounter Summary ---
Author Organization [facility] Address [address] [place] [address] Phone Care Team Providers Care Chief Operating Officer Name Role Phone Manav Rose MD Primary Care Provider [phone] Manav Rose MD Primary Care Provider [phone] Manav Rose MD Primary Care Provider Encounter Details Date Type Department Care Team (Late Contact Info) Description 08/13/2023 Procedure Pass [facility] 30 [place] [address] Social History Tobacco Use Types Packs/Day Years [...] Upcoming Encounters Date Type Department Care Team ([facility] st Contact Info) Description 09/05/2025 2:30 PM EST Office Visit [facility] Pulmonary, Allergy and Critical Care Medicine 10 [place] [address] Ryan Walker MD [address] [address] [email or web address] documented as of this encounter Visit Diagnoses Not on filedocumented in this encounter Care Teams Chief Operating Officer Relationship Specialty Start Date End Date Manav Rose MD [email or web address] PCP - General Family Medicine 03/10/18 09/21/23 Manav Rose MD [email or web address] PCP - General Family Medicine 09/22/23 12/21/23 Manav Rose MD [address] [place] [address] [email or web address] PCP - General Family Medicine 12/22/23 documented as of this encounter Additional Source Comments The information contained in this document represents components of the legal health record. It is not the complete legal health record.[facility]
--- OUTSIDE RECORDS SUMMARY | 2025-04-13 08:23 | XMS_ITS | Clinical Summary ---
Author Organization [facility] Address [address] [place] [address] Care Team Providers Care Screen Maker Name Role Phone Unavailable Primary Care Provider [...] 2) 10/31/2005 Bone Density 10/31/2020 COVID-19 Vaccine (1 - 2023-2 5 season) 2025 Influenza (#1) 2025 RSV (1 - 1-dose 75+ series) 10/31/2030 HPV Vaccine (No Doses Required) Completed Hep A Aged Out No longer eligi [...]
--- OUTSIDE RECORDS SUMMARY | 2025-04-13 08:23 | XMS_ITS | Encounter Summary ---
Author Organization [facility] Address [address] [address] Phone Care Team Providers Care Locomotive Firer Name Role Phone Manav Rose MD Primary Care Provider [phone] Manav Rose MD Primary Care Provider [phone] Manav Rose MD Primary Care Provider [phone] Encounter Details Date Type Department Care Team (Late Contact Info) Description 08/14/2018 Transcribe Orders [facility] Laboratory 30 [place] [address] Esther Ortiz PA [address] [place] [id number] Hypouricemia (Primary Dx) Social History Tobacco Use Types [...] Upcoming Encounters Date Type Department Care Team ([facility] Contact Info) Description 09/05/2025 2:30 PM EST Office Visit [facility] Pulmonary, Allergy and Critical Care Medicine 10 [place], [place] [phone] Ryan Walker MD [address] [address] [email or web address] documented as of this encounter Results * (ABNORMAL) Comprehensive metabolic panel (08/14/2018 10:11 AM EST) SODIUM 134 133 - 146 mmol/L [facility] POTASSIUM 3.7 3.3 - 5.1 mmol/L [facility] CHLORIDE 91(L) 96 - 108 mmol/L [facility] CO2 28 21 - 35 mmol/L [facility] BUN 44(H) 6 - 19 mg/dL [facility] CREATININE 1.40 0.5 - 1.5 mg/dL [facility] GLUCOSE 108(H) 70 - 99 mg/dL [facility] ALBUMIN 4.5 3.9 - 4.8 g/dL [facility] TOTAL PROTEIN 8.3(H) 6.5 - 8.0 g/dL [facility] CALCIUM 9.7 8.4 - 10.3 mg/dL [facility] ALKALINE PHOSPHATASE 103 39 - 117 U/L [facility] TOTAL BILIRUBIN 0.6 0.0 - 1.2 mg/dL [facility] AST 18 0 - 37 U/L [facility] ALT 14 0 - 40 U/L [facility] GLOBULIN 3.8 1 - 4.8 g/dL [facility] EGFR 40(L) >59 mL/min/1.7 3m2 [facility] Comment:If patient is black, multiply result by 1.159. Estimated glomerular filtration rate calculated using the CKD-EPI equation. ANION GAP 19 10 - 20 mmol/L [facility] Blood 08/14/2018 10:1 1 AM EST 08/14/2018 10:13 AM EST us Esther HERNANDEZ LAB BLOOD ORDERABLES F inal Result [facility] [address] [place] [address] * (ABNORMAL) Sedimentation rate (ESR) (08/14/2018 10:11 AM EST) ESR 53(H) 0 - 30 mm/h [facility] Blood 08/14/2018 10:1 1 AM EST 08/14/2018 10:13 AM EST us Esther HERNANDEZ LAB BLOOD ORDERABLES F inal Result Performing Organization Address [facility] Co de Phone Number [address] [address] * (ABNORMAL) CBC (08/14/2018 10:11 AM EST) WBC 10.60 3.40 - 11.20 K/uL [facility] RBC 4.09 3.80 - 4.80 M/uL [facility] HGB 12.4 12.0 - 15.0 g/dL [facility] HCT 37.7 36.0 - 46.0 % [facility] PLT 345 130 - 400 K/uL [facility] MCV 92.2 79.0 - 98.0 fL [facility] MCH 30.3 27.0 - 34.8 pg [facility] MCHC 32.9 31.5 - 36.0 g/dL [facility] RDW 12.8 10.8 - 14.6 % [facility] MPV 8.8(L) 9.4 - 12.4 [facility] NRBC 0.00 0.00 /100 WBCs [facility] ABSOLUTE NRBC 0.00 0.00 K/uL [facility] Blood 08/14/2018 10:1 1 AM EST 08/14/2018 10:13 AM EST us Esther HERNANDEZ LAB BLOOD ORDERABLES F inal Result Performing Organization Address [facility] Co de Phone Number [address] [address] documented in this encounter Visit Diagnoses Diagnosis Hypouricemia- Primary Other abnormal blood chemistry documented in this encounter Additional Health Concerns Infection Onset Date Last Indicated Resolved Time CoV-Risk Comment:Referred for COVID-19 testing 11/23/2019 11/23/2019 12/07/2019 1:23 AM E DT CoV-Risk 07/31/2020 07/31/2020 08/10/2020 1:28 AM EST CoV-Risk 05/28/2022 05/28/2022 06/08/2022 1:22 AM EDT documented as of this encounter Care Teams Locomotive Firer Relationship Specialty Start Date End Date Manav Rose MD [email or web address] PCP - General Family Medicine 03/10/18 09/21/23 Manav Rose MD [email or web address] PCP - General Family Medicine 09/22/23 12/21/23 Manav Rose MD [address] [place] [address] [email or web address] PCP - General Family Medicine 12/22/23 documented as of this encounter Additional Source Comments The information contained in this document represents components of the legal health record. It is not the complete legal health record.[facility]
--- OUTSIDE RECORDS SUMMARY | 2025-04-13 08:23 | XMS_ITS | Encounter Summary ---
Author Organization [facility] Address [address] [place] [address] Phone Care Team Providers Care System Auditor Name Role Phone Manav Rose MD Primary Care Provider [phone] Manav Rose MD Primary Care Provider [phone] Manav Rose MD Primary Care Provider [phone] Encounter Details Date Type Department Care Team (Late Contact Info) Description 03/10/2018 Procedure Pass [facility] Endoscopy Admitting Dept Virtual Department [address] [place] [address] Social History Tobacco Use Types Packs/Day Years [...] [facility] Pulmonary, Allergy and Critical Care Medicine [address] [place] [address] Ryan Walker MD [address] [place] [address] 2nd [place] [address] documented as of this encounter Visit Diagnoses Not on filedocumented in this encounter Additional Health Concerns Infection Onset Date Last Indicated Resolved Time CoV-Risk Comment:Referred for COVID-19 testing 11/23/2019 11/23/2019 12/07/2019 1:23 AM E DT CoV-Risk 07/31/2020 07/31/2020 08/10/2020 1:28 AM EST CoV-Risk 05/28/2022 05/28/2022 06/08/2022 1:22 AM EDT documented as of this encounter Care Teams System Auditor Relationship Specialty Start Date End Date Manav Rose MD [email or web address] PCP - General Family Medicine 03/10/18 09/21/23 Manav Rose MD PCP - General Family Medicine 09/22/23 12/21/23 Manav Rose MD [address] [place] [address] [email or web address] PCP - General Family Medicine 12/22/23 documented as of this encounter Additional Source Comments The information contained in this document represents components of the legal health record. It is not the complete legal health record.[facility]
[2025-04-13 09:28] LABS: Hematocrit 34.7 % (37.0-47.0); Hemoglobin 11.5 g/dl (12.0-16.0); Imm Gran Abs Auto 0.06 X10*3/uL (0.00-0.03); Imm Gran Pct Auto 0.7 % (0.0-0.4); Lymphocytes Absolute Auto 2.5 X10*3/uL (1.2-4.9); MANUAL DIFF FLAG SCAN; Mean Corpuscular HGB Conc 33.1 g/dl (31.0-35.0); Mean Corpuscular Hemoglobin 31.9 pg (27.0-33.0); Mean Corpuscular Volume 96.4 fL (80.0-98.0); NRBC Abs Auto 0.000 X10*3/uL (0.0-0.012); NRBC Pct Auto 0.0 /100WBC (0.0-0.2); PLT CLUMP 1; Red Blood Count 3.60 X10*6/uL (4.20-5.50); SCAN SMEAR FLAG 1
[2025-04-13 09:56] LABS: White Blood Count 9.0 X10*3/uL (4.8-10.8)
[2025-04-13 10:29] LABS: Alanine Aminotransferase 18 U/L (0-31); Albumin Level 4.2 g/dL (3.5-5.0); Alkaline Phosphatase 79 U/L (39-117); Anion Gap 13 (12-20); Aspartate Amino Transferase 27 U/L (5-31); Blood Urea Nitrogen 30 mg/dL (9-16); Calcium 9.8 mg/dL (8.4-10.2); Carbon Dioxide 23 mmol/L (22-29); Chloride 108 mmol/L (96-108); Estimated Glomerular Filt Rate 53; Potassium 5.0 mmol/L (3.3-5.1); Sodium 139 mmol/L (135-145); Total Protein 7.3 g/dL (6.5-8.0)
[2025-04-13 10:45] LABS: HBS Num1 1.85 mIU/mL (0-7.99); HBc Num1 0.03 S/CO (0.00-0.79); HBsAGNum1 0.31 S/CO (0.00-0.99); Hepatitis A Antibody IgM 0.47 Index (0-0.79); Hepatitis B Surface Antigen Negative (Negative); ~HepC Num1 0.07 S/CO (0.00-0.79); ~Hepatitis A Antibody IgM Nonreactive (Nonreactive); ~Hepatitis B Surface Antibody NONREACTIVE (Nonreactive); ~Hepatitis C Antibody Nonreactive (Nonreactive)
[2025-04-16 08:08] LABS: TS Negative Control Passed; TS Panel A 0; TS Panel B 0; TS Positive Control Passed; TSpotTB Negative (Negative)
== END 2025-04-13 08:07 | disposition home or self-care (01) ==
LOC: HO.LAB 08:06
PROVIDERS: PCP Family Medicine; Visit Provider Student in an Organized Health Care Education/Training Program
DX: L40.50 Arthropathic psoriasis, unspecified (principal); M18.0 Bilateral primary osteoarthritis of first carpometacarpal joints; M77.11 Lateral epicondylitis, right elbow; Z79.620 Long term (current) use of immunosuppressive biologic; Z79.61 Long term (current) use of immunomodulator; Z79.899 Other long term (current) drug therapy
CPT/HCPCS: 36415; 80053; 85025; 86140; 86481; 86704; 86706; 86709; 86803; 87340

== ENCOUNTER 2025-04-13 15:57 | Outpatient (AMB) | payer OTHER, SELFPAY ==
--- NOTE | 2025-04-13 15:59 | A.OFFVIS_ITS ---
Vital Signs 04/13/25 16:05 Height 5 ft 4 in Weight 225 lb 1.471 oz BMI 38.6 BP 150/80 H Blood Pressure Location Rt brachial Position Sitting Pulse 77 Pulse Source Pulse Oximeter Pulse Oximetry (%) 99 Oxygen Delivery Method Room Air Intake Visit Reasons: f/u PsA Intake Note: Patient presents for PsA follow up. Allergies amoxicillin (From Augmentin) Allergy (Verified 04/13/25 16:03) Rash clavulanic acid (From Augmentin) Allergy (Verified 04/13/25 16:03) Rash sulfamethoxazole (From Bactrim) Adverse Reaction (Mild, Verified 04/13/25 16:03) Unknown trimethoprim (From Bactrim) Adverse Reaction (Mild, Verified 04/13/25 16:03) Unknown pravastatin Adverse Reaction (Verified 04/13/25 16:03) Muscle Weakness Medication List - Last Reconciled 04/13/25 by Ghada Daugherty MD albuterol sulfate 90 mcg/actuation 0 mcg inhalation atorvastatin 10 mg PO DAILY betamethasone, augmented 0.05 % topical PRN chlorthalidone 25 mg PO DAILY clobetasol 0.05% 1 appl topical BID duloxetine 120 mg PO DAILY famotidine 40 mg PO BID fluticasone furoate-vilanterol 200-25 mcg/dose (Breo Ellipta) 1 ea inhalation D AILY folic acid 1 mg PO DAILY ibuprofen 800 mg PO TID 7 days insulin syringe-needle U-100 Use once weekly with methotrexate leucovorin calcium 10 mg (2 x 5 mg) PO QWEEK lisinopril 10 mg PO DAILY loratadine 10 mg PO DAILY meclizine 25 mg PO DAILY PRN methotrexate sodium (PF) 15 MG (0.6 ML) SUBCUTANEOUSLY EVERY WEEK potassium chloride ER 20 mEq PO DAILY prednisone 5 mg PO DAILY PRN trazodone 100 mg PO BEDTIME PRN HPI Comments Details: Patient is a 69-year-old female with hyperlipidemia, hypertension, psoriasis and psoriatic arthritis here today for follow up Interval History: Patient last seen 12/19/24 with me - On Simponi 2mg/kg, methotrexate 15mg weekly and folic acid - PsO/PsA stable - right 1st CMC injection Today, - On Simponi 2mg/kg, methotrexate 15mg weekly and folic acid - PsO: In the ear canal and behind the ears - Nasal ulcers - Right arm with pain radiating to wrist - Right knee with lateral pain radiating to ankle - injection lasted 3 weeks, continues to complain of bilateral 1st CMC joint pain Rheumatologic History: pt dx around 1999 MTX started around 2019 then Humira shortly added with good results MTX switched to SQ 03/2023 d.t GI upset Humira DC 05/2023 due to secondary nonresponse Enbrel 05/2023 -08/2023 ineffective Taltz 08/2023 - 07/2024 Consentyx - [place] denied Orencia 07/2024- Current Rheumatology Medication(s): Simponi Aria 2mg/kg Methotrexate 15mg weekly Folic acid 1mg daily PFSH Medical History (Updated 09/16/24 @ 16:11 by Ghada Daugherty MD) half-way (current) use of immunosuppressive biologic Mixed hyperlipidemia GERD (gastroesophageal reflux disease) Hypertension Major depressive disorder Psoriatic arthritis Chronic kidney disease Asthma Surgical History Hx of BSO (bilateral salpingo-oophorectomy) Hx of tubal ligation Hx of section Family History (Updated 04/13/25 @ 16:05 by CAITY Su) Mother Rectal cancer Cerebral aneurysm Rheumatoid arthritis Father Cerebral aneurysm Psoriasis Brother Hodgkin's lymphoma Asthma Depressive disorder Sister Lung tumor Brother Lymphoma Social History Household Members Other:: Son Alcohol intake: former Patient Tobacco Use Status: Former Tobacco user Current occupational status: employed Current occupation: Nurse/ right hand Review of Systems Const Details: Review of Systems Constitutional: Denies fever, chills, weight loss ENT: Denies vision changes, eye pain or eye redness, dental caries, dry mouth GI: Denies nausea, vomiting, diarrhea, abdominal pain, change in BM Pulm: Denies SOB, LOPEZ, hemoptysis, wheezing Cards: Denies chest pain, palpitations Skin: Denies Raynaud's, nail changes, photosensitivity, FAMILY MEDICINE RESIDENT: Denies headaches, weakness, paresthesias, recurrent falls MSK: as per HPI All other systems reviewed and are unremarkable except noted above Physical Exam Exam Exam: Vital signs reviewed Physical Examination CONSTITUITIONAL Patient alert and cooperative. Well appearing and in no apparent painful distress HENT ulcer noted to the right nares MSK Hands * Right Hand: Able to make a fist. No swelling or tenderness to palpation of the MCPs, PIPs or DIPs. * Left Hand: Able to make a fist. No swelling or tenderness to palpation of the MCPs, PIPs or DIPs. * Bilateral squarring of the 1st CMC Wrists * Right Wrist: Full ROM to flexion and extension. No swelling or TTP * Left Wrist: Full ROM to flexion and extension. No swelling or TTP Elbows * Right Elbow: Full ROM. No swelling or TTP. No TTP of the medial epicondyle. TTP of the lateral epicondyle * Left Elbow: Full ROM. No swelling or TTP. No TTP of the medial epicondyle. No TTP of the lateral epicondyle Shoulders * Right shoulder: Full ROM. No swelling noted. No TTP of the AC joint. No TTP of the subacromial bursa. No TTP of the posterior shoulder * Left shoulder: Full ROM. No swelling noted. No TTP of the AC joint. No TTP of the subacromial bursa. No TTP of the posterior shoulder Knees * Right knee: Decreased ROM. No swelling noted. No TTP of the knee joint line. No TTP of pes anserine bursa. TTP of the lateral aspect of the knee over the fibula * Left knee: Decreased ROM. No swelling noted. TTP of the knee joint line. TTP of pes anserine bursa. Ankles * Right ankle: Good ankle dorsiflexion and plantar flexion. No swelling. No TTP of the ankle joint * Left ankle: Good ankle dorsiflexion and plantar flexion. No swelling. No TTP of the ankle joint Feet * Right foot: Negative squeeze test * Left foot: Negative squeeze test Tender points? * No tenderness to palpation of the bilateral trapezius, supraspinatus, anterior costochondral junctions, bilateral suboccipital muscle insertions SKIN PsO: ear and posterior ear Vital Signs: Last Vital Signs Pulse 77 04/13/25 16:05 BP 150/80 H 04/13/25 16:05 Pulse Ox 99 04/13/25 16:05 Oxygen Delivery Method Room Air 04/13/25 16:05 BMI result Body Mass Index 38.6 Results Reviewed Results Reviewed: Laboratory Tests 12/27/24 04/13/25 13:52 08:36 WBC 9.0 RBC 3.60 L Hgb 11.5 L Hct 34.7 L Plt Count 278 TNP ESR 45 H Sodium 139 Potassium 5.0 Chloride 108 Carbon Dioxide 23 BUN 30 H Creatinine 1.04 AST 27 ALT 18 C-Reactive Protein 0.48 XR Hands 12/2023 FINDINGS: Right hand: First carpometacarpal joint there is advanced osteoarthritis manifested by marked joint space narrowing marginal osteophytes and subchondral cystic change. Remaining bones joints and soft tissues are unremarkable. Left hand: First carpometacarpal joint there is advanced osteoarthritis with marked joint space narrowing marginal osteophytes subchondral sclerosis. Remaining bones joints soft tissues are unremarkable. IMPRESSION: RIGHT HAND: Advanced osteoarthritis of the first carpometacarpal joint. Assessment & Plan Assessment & Plan (1) Psoriatic arthritis: Comment: per pt dx around 1999 MTX started around 2019 then Humira shortly added with good results MTX switched to SQ 03/2023 d.t GI upset Humira DC 05/2023 due to secondary nonresponse Enbrel 05/2023 -08/2023 ineffective Taltz 08/2023 - 07/2024. ineffective Consentyx insurance denied Orencia 08/2024. Does not cover PsA Golimumab infusions 09/2024 Code(s): L40.50 - Arthropathic psoriasis, unspecified Category: Medical Plan: #PsO/PsA Patient is a 69-year-old female with psoriasis complicated by psoriatic arthritis. Psoriasis plaques are doing better on golimumab infusions but still has PsO in her ear canal and posterior ear. No evidence of active psoriatic arthritis on exam today. Nasal ulcer noted. Likely 2/2 to MTX. Will stop methtorexate. But will need to add another medication to cover PsO. Will start Otezla Plan - Continue Golimumab 2mg/kg IV every 4 weeks - Stop methotrexate and leucovorin - Start Otezla: Initial: 10 mg in the morning on day 1. Day 2: 10 mg twice daily; Day 3: 10 mg in the morning and 20 mg in the evening; Day 4: 20 mg twice daily; Day 5: 20 mg in the morning and 30 mg in the evening. Maintenance dose: 30 mg twice daily starting on day 6. - RTC 4 months - Labs before visit: CBC, CMP, ESR, CRP (2) Arthritis of carpometacarpal (CMC) joint of right thumb: Code(s): M18.11 - Unilateral primary osteoarthritis of first carpometacarpal joint, right hand Category: Medical Plan: #Right 1st CMC OA Patient with significant right 1st CMC OA which is the source of significant pain. Injection only last 3 weeks Plan - Topical diclofenac 1% qid - CMC splint (3) Arthritis of carpometacarpal (CMC) joint of left thumb: Code(s): M18.12 - Unilateral primary osteoarthritis of first carpometacarpal joint, left hand Category: Medical Plan: #Left 1st CMC OA Patient with left 1st CMC OA. Not as bad as the 1st. 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 I recommended topical Diclofenac 4 times a day and splinting when she can Plan - Topical diclofenac 1% qid - CMC splint (4) Right tennis elbow: Code(s): M77.11 - Lateral epicondylitis, right elbow Plan: # right lateral epicondylitis Recommended topical diclofenac and stretching exercises (5) Psoriasis: Code(s): L40.9 - Psoriasis, unspecified Category: Medical Plan: #PsO Improving on golimumab. Will add Otezla since we need to stop methotrexate (6) half-way (current) use of immunosuppressive biologic: Code(s): Z79.620 - supervisor intermediates (current) use of immunosuppressive biologic Category: Medical Plan: #Long-term Use of TNF Inhibitors: Golimumab Discussed with the patient the benefits and risks of TNF inhibitors for the management of the rheumatic condition Benefits include reduce pain, maintenance of remission and reduction of flares as well as ?progression of the disease Risks include injection sites/infusion reactions, serious infections (such as bacterial infections, opportunistic infections), malignancy, delaminating syndromes, autoimmune phenomena, CHF exacerbations, palmar plantar psoriasis and cytopenias Recommended rotating injection sites, and holding medication during and for up to 1 week after resolution of a febrile illness or open skin wound (7) Long-term current use of apremilast: Code(s): Z79.61 - half-way (current) use of immunomodulator Plan: #Long-term Current Use of Apremilast Risks and benefits of Apremilast in the management of psoriatic arthritis and psoriasis discussed with the patient. Benefits include decreased joint pain and morbidity Risks include GI upset including diarrhea, hypersensitivity reactions, significant weight loss, symptoms of depression Plan I spent 38 minutes reviewing the record and labs, taking a history, examining the patient, discussing the treatment plan, ordering diagnostic work up and documenting in the medical record Orders: Orders Erythrocyte Sedimentation Rate 4 Months Z. - Other watermelon inspector (current) drug therapy Complete Blood Count Auto Diff 4 Months Z. - Other [facility] ([facility]) drug therapy Comprehensive Met. Panel 4 Months Z - [facility] [place] drug therapy C Reactive Protein 4 Months Z. - Other [place] (current) drug therapy Medications: New apremilast (Otezla) 30 mg PO BID 60 tabs 5RF L40.50 - Arthropathic psoriasis, unspecified, L40.9 - Psoriasis, unspecified apremilast (Otezla Starter) 1 ea PO PER PKG DIR 55 ea 0RF L40.50 - Arthropathic psoriasis, unspecified, L40.9 - Psoriasis, unspecified Discontinued leucovorin calcium Discontinued Reason: Doctor's Order 10 mg (2 x 5 mg) PO QWEEK 24 tabs 1RF folic acid Discontinued Reason: Doctor's Order 1 mg PO DAILY 90 tabs 1RF methotrexate sodium (PF) Discontinued Reason: Doctor's Order 15 MG (0.6 ML) SUBCUTANEOUSLY EVERY WEEK 4 mL 5RF Coding Level of Care Code Est Pt Level 4 (22326) Complex EM visit Add On G2211 Diagnoses Psoriatic arthritis L40.50 Arthritis of carpometacarpal (CMC) joint of right thumb M18.11 Arthritis of carpometacarpal (CMC) joint of left thumb M18.12 Right tennis elbow M77.11 Psoriasis L40.9 half-way (current) use of immunosuppressive biologic Z79.620 Long-term current use of apremilast Z79.61
[2025-04-13 16:05] VITALS: BP 150/80; PULSE 77; O2SAT 99; BMI 38.6
--- OUTSIDE RECORDS SUMMARY | 2025-04-13 16:34 | XMS_ITS | Clinical Summary ---
Author Organization [facility] Address [address] [place] [address] Phone Care Team Providers Care Bioprocessing Manufacturing Technician Name Role Phone Manav Lewis MD Primary Care Provider [phone] Allergies Active Allergy Reactions Criticality Noted Date [...] Pulmonary, Allergy and Critical Care Medicine [address] [place] [phone] Ryan Walker MD 10 [facility] [address]nd [place] [address] Health Maintenance Due Date Last Done Comments [...] this topic Medical Devices Implanted Type Area Dopeman Device Identifier Shelf Expiration Date Model / Serial / Lot Clip Hemostasis 16mm /5ea - [id number] Implanted:Qty: 2 on 06/14/2024 by Magdaleno Kelley MD at [facility] 12/30/2026 1170-02 / / [id number] Description:Recto sigmoid Procedures Procedure Name Priority Date/Time Associated Diagnosis Comments ENDOSCOPY, COLON 06/14/2024 9:51 AM EST BASIC METABOLIC PANEL STAT 05/30/2022 5:45 PM EDT from Last 3 Months or Most Recently Relevant to Health Maintenance Results * ENDOSCOPY, COLON (06/14/2024 9:51 AM EST) Narrative Transcriptions Magdaleno Kelley MD - 06/14/2024 9:51 AM EST [facility] Patient Name: Allison Turner Attending MD:: MAGDALENO KELLEY MD, , Procedure Date: 06/14/2024 9:51 AM Date of : 1955 Age: 68 Admit Type: Outpatient Gender: Female Room: [place] [address] Referring MD: MANAV LEWIS MD Exam Type: [...] monitored continuously. The Olympus adult variable colonoscope [id number] #4 was introduced through the anus and [...] 9:51 AM Procedure Code(s): --- Professional --- 77535, Colonoscopy, flexible; with removal of tumor(s), polyp(s), or other lesion(s) by snare technique --- Technical --- 97426, Colonoscopy, flexible; with removal of tumor(s), polyp(s), [...] or abscess without bleeding CPT copyright 2021 [employer]. All rights reserved. The codes documented in this report are preliminary and upon knitting demonstrator reviewmay be revised to meet current compliance requirements. Procedure Date: 06/14/2024 9:51:[address] [place] [phone] us Manav Lewis MD GI PROCEDURE ORDERABLES Final Result * (ABNORMAL) Basic metabolic panel (05/30/2022 5:45 PM EDT) SODIUM 135 133 - 146 mmol/L [facility] CHLORIDE 98 96 - 108 mmol/L [facility] POTASSIUM 4.8 3.3 - 5.1 mmol/L [facility] CO2 25 21 - 35 mmol/L [facility] BUN 28(H) 6 - 19 mg/dL [facility] CREATININE 1.00 0.5 - 1.5 mg/dL [facility] GLUCOSE 127(H) 70 - 99 mg/dL [facility] CALCIUM 10.3 8.4 - 10.3 mg/dL [facility] EGFR 62 >59 mL/min/1.7 3m2 [facility] Comment:Estimated glomerular filtration rate calculated using the CKD-EPI refit equation. ANION GAP 17 10 - 20 mmol/L [facility] Blood 05/30/2022 5:45 PM EDT 05/30/2022 6:14 PM EDT us Kelsie HERNA[facility] BLOOD ORDERABLES Final Result [facility] [address] [place] [address] from Last 3 Months or Most Recently Relevant to Health Maintenance Insurance [facility] EPO [facility] POS EPO MEDICARE A [address] [place], [place] [id number] POS EPO MEDICARE A [facility] POS EPO MEDICARE [place] [address] POS EPO MEDICARE A [facility] POS EPO MEDICARE A [facility] POS EPO MEDICARE A [facility] POS EPO MEDICARE A [facility] POS EPO Care Teams Bioprocessing Manufacturing Technician Relationship Specialty Start Date End Date Manav Lewis MD [address] [place] [phone] PCP - General Family Medicine 12/22/23 Additional Source Comments The information contained in this document represents components of the legal health record. It is not the complete legal health record.[facility]
--- OUTSIDE RECORDS SUMMARY | 2025-04-13 16:34 | XMS_ITS | Encounter Summary ---
Author Organization [facility] Address [address] [place] [phone] Phone Care Team Providers Care Director Of Special Education Name Role Phone Manav Rose MD Primary Care Provider [phone] Manav Rose MD Primary Care Provider [phone] Manav Rose MD Primary Care Provider [phone] Encounter Details Date Type Department Care Team (Late Contact Info) Description 11/17/2022 Transcribe Orders [facility] [address] [place] [address] Manav Rose MD [address] [place] [address] [phone] [email or web address] Social History Tobacco Use Types Packs/Day Years [...] Upcoming Encounters Date Type Department Care Team ([facility] Contact Info) Description 09/05/2025 2:30 PM EST Office Visit [facility] Pulmonary, Allergy and Critical Care Medicine [address] [place], [place] [phone] Ryan Walker MD [address] [place] [phone] [email or web address] documented as of this encounter Visit Diagnoses Not on filedocumented in this encounter Care Teams Director Of Special Education Relationship Specialty Start Date End Date Manav Rose MD [email or web address] PCP - General Family Medicine 03/10/18 09/21/23 Manav Rose MD [email or web address] PCP - General Family Medicine 09/22/23 12/21/23 Manav Rose MD [address] [place] [address] [email or web address] PCP - General Family Medicine 12/22/23 documented as of this encounter Additional Source Comments The information contained in this document represents components of the legal health record. It is not the complete legal health record.[facility]
--- OUTSIDE RECORDS SUMMARY | 2025-04-13 16:34 | XMS_ITS | Encounter Summary ---
Author Organization [facility] Address [address] [place] [address] Phone Care Team Providers Care Technical Sales Director Name Role Phone Manav Rose MD Primary Care Provider [phone] Manav Rose MD Primary Care Provider [phone] Manav Rose MD Primary Care Provider [phone] Encounter Details Date Type Department Care Team (Latest Contact Info) Description 12/25/2020 Transcribe Orders Virtual Department [address] [place] [address] Bernadine Rose PA [address] [place] [phone] Dizziness and giddiness (Primary Dx) Social History [...] Pulmonary, Allergy and Critical Care Medicine 10 [place] [address] Ryan Walker MD [address] [address] [email or web address] documented as of this encounter Visit Diagnoses Diagnosis Dizziness and giddiness- Primary documented in this encounter Additional Health Concerns Infection Onset Date Last Indicated Resolved Time CoV-Risk 05/28/2022 05/28/2022 06/08/2022 1:22 AM EDT documented as of this encounter Care Teams Technical Sales Director Relationship Specialty Start Date End Date Manav Rose MD [email or web address] PCP - General Family Medicine 03/10/18 09/21/23 Manav Rose MD [email or web address] PCP - General Family Medicine 09/22/23 12/21/23 Manav Rose MD [address] [place] [phone] [email or web address] PCP - General Family Medicine 12/22/23 documented as of this encounter Additional Source Comments The information contained in this document represents components of the legal health record. It is not the complete legal health record.[facility]
--- OUTSIDE RECORDS SUMMARY | 2025-04-13 16:34 | XMS_ITS | Encounter Summary ---
Author Organization [facility] Address [address] [place] [phone] Phone Care Team Providers Care Acid Dumper Name Role Phone Manav Rose MD Primary Care Provider [phone] Manav Rose MD Primary Care Provider [phone] Manav Rose MD Primary Care Provider [phone] Reason for Referral * Occupational Therapy (Elective) - Closed Specialty Diagnoses / Procedures Referred By Rahul t Referred To Contact Occupational Therapy Diagnoses Encounter for rehabilitation Bernadine Rose PA Phone: tel: fax: [address] [address] Phone: tel: Referral ID Status Reason Start Date Expiration Date Visits Re quested Visits Authorized [id number] Closed 12/28/2020 08/09/2021 30 30 Encounter Details Date Type Department Care Team (Latest Contact Info) Description 12/28/2020 Transcribe Orders [facility] [address] [place] [address] Bernadine Rose PA [address] [place] [phone] Encounter for rehabilitation (Primary Dx) Social History [...] Pulmonary, Allergy and Critical Care Medicine 10 [place] [address] Ryan Walker MD [address] [place] [phone] [email or web address] Scheduled Referrals Name Type Priority Associated Diagnoses Orde r Schedule Ambulatory referral to [facility] Occupational Therapy Outpatient Referral Routine Encounter for rehabilitation Ordered: 12/28/2020 documented as of this encounter Visit Diagnoses Diagnosis Encounter for rehabilitation- Primary documented in this encounter Additional Health Concerns Infection Onset Date Last Indicated Resolved Time CoV-Risk 05/28/2022 05/28/2022 06/08/2022 1:22 AM EDT documented as of this encounter Care Teams Acid Dumper Relationship Specialty Start Date End Date Manav Rose MD [email or web address] PCP - General Family Medicine 03/10/18 09/21/23 Manav Rose MD PCP - General Family Medicine 09/22/23 12/21/23 Manav Rose MD [address] [place] [phone] [email or web address] PCP - General Family Medicine 12/22/23 documented as of this encounter Additional Source Comments The information contained in this document represents components of the legal health record. It is not the complete legal health record.[facility]
--- OUTSIDE RECORDS SUMMARY | 2025-04-13 16:34 | XMS_ITS | Clinical Summary ---
Author Organization [facility], Address [address] [place] [address] [place] [phone] Phone Care Team Providers Care Contract Negotiation Specialist Name Role Phone Bernadine Rose Primary Care Provider [phone] Allergies Active Allergy Reactions Criticality Noted Date [...] patient's age to complete this topic Insurance [employer] [place] Care Teams Contract Negotiation Specialist Relationship Specialty Start Date End Date Bernadine Rose PA [address] [place] [phone] PCP - General Physician Technology Lab Teacher 08/07/23
--- OUTSIDE RECORDS SUMMARY | 2025-04-13 16:34 | XMS_ITS | Encounter Summary ---
Author Organization [facility] Address [address] [place] [address] Phone Care Team Providers Care Agricultural Systems Specialist Name Role Phone Manav Rose MD Primary Care Provider [phone] Manav Rose MD Primary Care Provider [phone] Manav Rose MD Primary Care Provider [phone] Encounter Details Date Type Department Care Team (Late st Contact Info) Description 08/13/2023 Procedure Pass [facility], Ct Scan - [facility] 30 [place] [address] Social History Tobacco Use Types Packs/Day Years [...] Pulmonary, Allergy and Critical Care Medicine 10 [facility] [place] [address] Ryan Walker MD [address] [address] [email or web address] documented as of this encounter Visit Diagnoses Not on filedocumented in this encounter Care Teams Agricultural Systems Specialist Relationship Specialty Start Date End Date Manav Rose MD [email or web address] PCP - General Family Medicine 03/10/18 09/21/23 Manav Rose MD [email or web address] PCP - General Family Medicine 09/22/23 12/21/23 Manav Rose MD [address] [place] [address] [email or web address] PCP - General Family Medicine 12/22/23 documented as of this encounter Additional Source Comments The information contained in this document represents components of the legal health record. It is not the complete legal health record.[facility]
--- OUTSIDE RECORDS SUMMARY | 2025-04-13 16:34 | XMS_ITS | Encounter Summary ---
Author Organization [facility] Address [address] [place] [address] [place] [address] Phone Care Team Providers Care Latexer Name Role Phone Manav Rose MD Primary Care Provider [phone] Manav Rose MD Primary Care Provider [phone] Manav Rose MD Primary Care Provider Encounter Details Date Type Department Care Team (Late Contact Info) Description 10/18/2020 Procedure Pass [facility]oscopy Admitting Dept Virtual Department [address] [place] [address] Social History Tobacco Use Types Packs/Day Years [...] Pulmonary, Allergy and Critical Care Medicine 10 [place] [address] Ryan Walker MD 10 [facility] 2nd [place] [address] documented as of this encounter Visit Diagnoses Not on filedocumented in this encounter Additional Health Concerns Infection Onset Date Last Indicated Resolved Time CoV-Risk 05/28/2022 05/28/2022 06/08/2022 1:22 AM EDT documented as of this encounter Care Teams Latexer Relationship Specialty Start Date End Date Manav Rose MD [email or web address] PCP - General Family Medicine 03/10/18 09/21/23 Manav Rose MD [email or web address] PCP - General Family Medicine 09/22/23 12/21/23 Manav Rose MD [address] [place] [address] [email or web address] PCP - General Family Medicine 12/22/23 documented as of this encounter Additional Source Comments The information contained in this document represents components of the legal health record. It is not the complete legal health record.[facility]
--- OUTSIDE RECORDS SUMMARY | 2025-04-13 16:35 | XMS_ITS | Encounter Summary ---
Author Organization [facility] Address [address] [place] [address] Phone Care Team Providers Care Infantryman Name Role Phone Manav Rose MD Primary Care Provider [phone] Manav Rose MD Primary Care Provider [phone] Manav Rose MD Primary Care Provider [phone] Encounter Details Date Type Department Care Team (Latest Contact Info) Description 07/31/2020 Transcribe Orders Virtual Department [address] [place] [address] Radha Timmons CNP 10 [place], [place] [id number] [email or web address] Fever, unspecified fever cause (Primary Dx); Muscle [...] Pulmonary, Allergy and Critical Care Medicine 10 [place], [place] [phone] Ryan Walker MD [address] [address] [email or web address] documented as of this encounter Visit Diagnoses Diagnosis Fever, unspecified fever cause- Primary Muscle ache Unspecified myalgia and myositis documented in this encounter Additional Health Concerns Infection Onset Date Last Indicated Resolved Time CoV-Risk 07/31/2020 07/31/2020 08/10/2020 1:28 AM EST CoV-Risk 05/28/2022 05/28/2022 06/08/2022 1:22 AM EDT documented as of this encounter Care Teams Infantryman Relationship Specialty Start Date End Date Manav Rose MD [email or web address] PCP - General Family Medicine 03/10/18 09/21/23 Manav Rose MD [email or web address] PCP - General Family Medicine 09/22/23 12/21/23 Manav Rose MD [address] [place] [address] [email or web address] PCP - General Family Medicine 12/22/23 documented as of this encounter Additional Source Comments The information contained in this document represents components of the legal health record. It is not the complete legal health record.[facility]
--- OUTSIDE RECORDS SUMMARY | 2025-04-13 16:35 | XMS_ITS | Encounter Summary ---
Author Organization [facility] Address [address] [place] [address] Phone Care Team Providers Care Disability Counselor Name Role Phone Manav Rose MD Primary Care Provider [phone] Encounter Details Date Type Department Care Team (Latest Contact Info) Description 06/09/2024 Transcribe Orders Virtual Department 30 [place] [address] Bernadine Rose PA 70 [place] [address] Stage 3a chronic kidney disease (CKD) (Primary [...] Pulmonary, Allergy and Critical Care Medicine 10 [facility] [place] [address] Ryan Walkre MD [address] [place] [address] [email or web address] documented as of this encounter Results * [...] (CKD) documented in this encounter Care Teams Disability Counselor Relationship Specialty Start Date End Date Manav Rose MD [address] [place] [address] [email or web address] PCP - General Family Medicine 12/22/23 documented as of this encounter Additional Source Comments The information contained in this document represents components of the legal health record. It is not the complete legal health record.[facility]
--- OUTSIDE RECORDS SUMMARY | 2025-04-13 16:35 | XMS_ITS | Encounter Summary ---
Author Organization [facility] Address [address] [place] [address] Phone Care Team Providers Care Full Stack Net Developer Name Role Phone Bernadine Rose Primary Care Provider [phone] Encounter Details Date Type Department Care Team (Late st Contact Info) Description 07/11/2024 Documentation Only [facility], [address] [place] [address] Madison Andrew [address] [place] [address] Social History Tobacco Use Types Packs/Day Years [...] on filedocumented in this encounter Care Teams Full Stack Net Developer Relationship Specialty Start Date End Date Bernadine Rose PA 70 [place] [address] PCP - General Physician Mixing Machine Feeder 08/07/23 documented as of this encounter
--- OUTSIDE RECORDS SUMMARY | 2025-04-13 16:35 | XMS_ITS | Encounter Summary ---
Author Organization [facility] Address [address] [address] Phone Care Team Providers Care Refrigeration Person Name Role Phone Manav Rose MD Primary Care Provider [phone] Manav Rose MD Primary Care Provider [phone] Manav Rose MD Primary Care Provider [phone] Encounter Details Date Type Department Care Team (Late Contact Info) Description 08/14/[address] [facility] Laboratory 30 [place] [address] Esther Ortiz PA [address] [place] [address] [phone] Hypouricemia (Primary Dx) Social History Tobacco Use [...] Upcoming Encounters Date Type Department Care Team ([facility] Contact Info) Description 09/05/2025 2:30 PM EST Office Visit [facility] Pulmonary, Allergy and Critical Care Medicine 10 [place], [place] [phone] Ryan Walker MD [address] [address] [email or web address] documented as of this encounter Results * (ABNORMAL) Comprehensive metabolic panel (08/14/2018 10:11 AM EST) SODIUM 134 133 - 146 mmol/L [facility] POTASSIUM 3.7 3.3 - 5.1 mmol/L [facility] CHLORIDE 91(L) 96 - 108 mmol/L [facility] CO2 28 21 - 35 mmol/L [facility] BUN 44(H) 6 - 19 mg/dL [facility] CREATININE 1.40 0.5 - 1.5 mg/dL [facility] GLUCOSE 108(H) 70 - 99 mg/dL [facility] ALBUMIN 4.5 3.9 - 4.8 g/dL [facility] TOTAL PROTEIN 8.3(H) 6.5 - 8.0 g/dL [facility] CALCIUM 9.7 8.4 - 10.3 mg/dL [facility] ALKALINE PHOSPHATASE 103 39 - 117 U/L [facility] TOTAL BILIRUBIN 0.6 0.0 - 1.2 mg/dL [facility] AST 18 0 - 37 U/L [facility] ALT 14 0 - 40 U/L [facility] GLOBULIN 3.8 1 - 4.8 g/dL [facility] EGFR 40(L) >59 mL/min/1.7 3m2 [facility] Comment:If patient is black, multiply result by 1.159. Estimated glomerular filtration rate calculated using the CKD-EPI equation. ANION GAP 19 10 - 20 mmol/L [facility] Blood 08/14/2018 10:1 1 AM EST 08/14/2018 10:13 AM EST us Esther HERNANDEZ LAB BLOOD ORDERABLES F inal Result [facility] 30 [place] [address] * (ABNORMAL) Sedimentation rate (ESR) (08/14/2018 10:11 AM EST) ESR 53(H) 0 - 30 mm/h [facility] Blood 08/14/2018 10:1 1 AM EST 08/14/2018 10:13 AM EST us Esther HERNANDEZ LAB BLOOD ORDERABLES F inal Result Performing Organization Address [facility] Co de Phone Number [address] [address] * (ABNORMAL) CBC (08/14/2018 10:11 AM EST) WBC 10.60 3.40 - 11.20 K/uL [facility] RBC 4.09 3.80 - 4.80 M/uL [facility] HGB 12.4 12.0 - 15.0 g/dL [facility] HCT 37.7 36.0 - 46.0 % [facility] PLT 345 130 - 400 K/uL [facility] MCV 92.2 79.0 - 98.0 fL [facility] MCH 30.3 27.0 - 34.8 pg [facility] MCHC 32.9 31.5 - 36.0 g/dL [facility] RDW 12.8 10.8 - 14.6 % [facility] MPV 8.8(L) 9.4 - 12.4 [facility] NRBC 0.00 0.00 /100 WBCs [facility] ABSOLUTE NRBC 0.00 0.00 K/uL [facility] Blood 08/14/2018 10:1 1 AM EST 08/14/2018 10:13 AM EST us Esther EHRNANDEZ LAB BLOOD ORDERABLES F inal Result Performing Organization Address [facility] Co de Phone Number [address] [address] documented in this encounter Visit Diagnoses Diagnosis Hypouricemia- Primary Other abnormal blood chemistry documented in this encounter Additional Health Concerns Infection Onset Date Last Indicated Resolved Time CoV-Risk Comment:Referred for COVID-19 testing 11/23/2019 11/23/2019 12/07/2019 1:23 AM E DT CoV-Risk 07/31/2020 07/31/2020 08/10/2020 1:28 AM EST CoV-Risk 05/28/2022 05/28/2022 06/08/2022 1:22 AM EDT documented as of this encounter Care Teams Refrigeration Person Relationship Specialty Start Date End Date Manav Rose MD [email or web address] PCP - General Family Medicine 03/10/18 09/21/23 Manav Rose MD [email or web address] PCP - General Family Medicine 09/22/23 12/21/23 Manav Rose MD [address] [place] [address] [email or web address] PCP - General Family Medicine 12/22/23 documented as of this encounter Additional Source Comments The information contained in this document represents components of the legal health record. It is not the complete legal health record.[facility]
--- OUTSIDE RECORDS SUMMARY | 2025-04-13 16:35 | XMS_ITS | Encounter Summary ---
Author Organization [facility] Address [address] [place] [address] [place] [address] Phone Care Team Providers Care Acreage Reporter Name Role Phone Manav Rose MD Primary Care Provider [phone] Manav Rose MD Primary Care Provider [phone] Manav Rose MD Primary Care Provider [phone] Encounter Details Date Type Department Care Team (Late st Contact Info) Description 06/10/2023 Procedure Pass [facility], Ct Scan - [facility] 30 [place] [address] Social History Tobacco Use Types Packs/Day Years [...] Pulmonary, Allergy and Critical Care Medicine 10 [place] [address] Ryan Walker MD [address] [place] [address] [email or web address] documented as of this encounter Visit Diagnoses Not on filedocumented in this encounter Care Teams Acreage Reporter Relationship Specialty Start Date End Date Manav Rose MD [email or web address] PCP - General Family Medicine 03/10/18 09/21/23 Manav Rose MD [email or web address] PCP - General Family Medicine 09/22/23 12/21/23 Manav Rose MD [address] [place] [address] [email or web address] PCP - General Family Medicine 12/22/23 documented as of this encounter Additional Source Comments The information contained in this document represents components of the legal health record. It is not the complete legal health record.[facility]
--- OUTSIDE RECORDS SUMMARY | 2025-04-13 16:35 | XMS_ITS | Encounter Summary ---
Author Organization [facility] Address [address] [place] [address] Phone Care Team Providers Care Manufacturing Project Manager Name Role Phone Manav Rose MD Primary Care Provider [phone] Manav Rose MD Primary Care Provider [phone] Manav Rose MD Primary Care Provider [phone] Encounter Details Date Type Department Care Team (Late Contact Info) Description 03/10/2018 Procedure Pass [facility] Endoscopy Admitting Dept Virtual Department [address] [place] [address] Social History Tobacco Use Types Packs/Day Years [...] [facility] Pulmonary, Allergy and Critical Care Medicine [address] [place] [address] Ryan Walker MD [address] [place] [address] 2nd [place] [address] documented as of this encounter Visit Diagnoses Not on filedocumented in this encounter Additional Health Concerns Infection Onset Date Last Indicated Resolved Time CoV-Risk Comment:Referred for COVID-19 testing 11/23/2019 11/23/2019 12/07/2019 1:23 AM E DT CoV-Risk 07/31/2020 07/31/2020 08/10/2020 1:28 AM EST CoV-Risk 05/28/2022 05/28/2022 06/08/2022 1:22 AM EDT documented as of this encounter Care Teams Manufacturing Project Manager Relationship Specialty Start Date End Date Manav Rose MD [email or web address] PCP - General Family Medicine 03/10/18 09/21/23 Manav Rose MD PCP - General Family Medicine 09/22/23 12/21/23 Manav Rose MD [address] [place] [address] [email or web address] PCP - General Family Medicine 12/22/23 documented as of this encounter Additional Source Comments The information contained in this document represents components of the legal health record. It is not the complete legal health record.[facility]
--- OUTSIDE RECORDS SUMMARY | 2025-04-13 16:35 | XMS_ITS | Encounter Summary ---
Author Organization [facility] Address [address] [place] [address] Phone Care Team Providers Care Veterinary Surgery Technologist Name Role Phone Manav Rose MD Primary Care Provider [phone] Manav Rose MD Primary Care Provider [phone] Manav Rose MD Primary Care Provider [phone] Encounter Details Date Type Department Care Team (Late Contact Info) Description 08/13/2023 Procedure Pass [facility] 30 [place] [address] Social History Tobacco Use Types Packs/Day Years [...] Upcoming Encounters Date Type Department Care Team ([facility] st Contact Info) Description 09/05/2025 2:30 PM EST Office Visit [facility] Pulmonary, Allergy and Critical Care Medicine 10 [facility] [place] [address] Ryan Walker MD [address] [address] [email or web address] documented as of this encounter Visit Diagnoses Not on filedocumented in this encounter Care Teams Veterinary Surgery Technologist Relationship Specialty Start Date End Date aMnav Rose MD [email or web address] PCP - General Family Medicine 03/10/18 09/21/23 Manav Rose MD [email or web address] PCP - General Family Medicine 09/22/23 12/21/23 Manav Rose MD [address] [place] [address] [email or web address] PCP - General Family Medicine 12/22/23 documented as of this encounter Additional Source Comments The information contained in this document represents components of the legal health record. It is not the complete legal health record.[facility]
--- OUTSIDE RECORDS SUMMARY | 2025-04-13 16:35 | XMS_ITS | Encounter Summary ---
Author Organization [facility], Address [address] [place] [address] Phone Care Team Providers Care Vamper Name Role Phone Bernadine Rose Primary Care Provider [phone] Encounter Details Date Type Department Care Team (Late st Contact Info) Description 06/04/2023 Documentation Only [facility], - Tami Sheth [address] [phone] Radha Timmons NP 70 [place] [address] Social History Tobacco Use Types Packs/Day Years [...] on filedocumented in this encounter Care Teams Vamper Relationship Specialty Start Date End Date Bernadine Rose PA 70 [place] [address] PCP - General Physician Medical Supervisor 08/07/23 documented as of this encounter
--- OUTSIDE RECORDS SUMMARY | 2025-04-13 16:35 | XMS_ITS | Encounter Summary ---
Author Organization [facility] Address [address] [place] [address] Phone Care Team Providers Care Director Business Travel Name Role Phone Manav Rose MD Primary Care Provider [phone] Manav Rose MD Primary Care Provider [phone] Manav Rose MD Primary Care Provider [phone] Encounter Details Date Type Department Care Team (Latest Contact Info) Description 10/04/2019 Transcribe Orders Virtual Department 30 [place] [address] Bernadine Rose PA 70 [place] [phone] Persistent cough (Primary Dx) Social History Tobacco [...] Pulmonary, Allergy and Critical Care Medicine 10 [place], [place] [phone] Ryan Walker MD [address] [address] [email or web address] documented as of this encounter Visit Diagnoses Diagnosis Persistent cough- Primary documented in this encounter Additional Health Concerns Infection Onset Date Last Indicated Resolved Time CoV-Risk Comment:Referred for COVID-19 testing 11/23/2019 11/23/2019 12/07/2019 1:23 AM E DT CoV-Risk 07/31/2020 07/31/2020 08/10/2020 1:28 AM EST CoV-Risk 05/28/2022 05/28/2022 06/08/2022 1:22 AM EDT documented as of this encounter Care Teams Director Business Travel Relationship Specialty Start Date End Date Manav Rose MD [email or web address] PCP - General Family Medicine 03/10/18 09/21/23 Manav Rose MD [email or web address] PCP - General Family Medicine 09/22/23 12/21/23 Manav Rose MD [address] [place] [address] [email or web address] PCP - General Family Medicine 12/22/23 documented as of this encounter Additional Source Comments The information contained in this document represents components of the legal health record. It is not the complete legal health record.[facility]
--- OUTSIDE RECORDS SUMMARY | 2025-04-13 16:35 | XMS_ITS | Encounter Summary ---
Author Organization [facility] Address [address] [place] [address] [place] [address] Phone Care Team Providers Care Entry Level Mechanical Engineer Name Role Phone Manav Rose MD Primary Care Provider [phone] Encounter Details Date Type Department Care Team (Late st Contact Info) Description 06/14/2024 Procedure Pass [facility] Endoscopy Admitting Dept Virtual Department 30 [place] [address] Social History Tobacco Use Types Packs/Day Years [...] Pulmonary, Allergy and Critical Care Medicine 10 [place] [address] Ryan Walker MD 10 [facility] [address] [place] [address] [email or web address] documented as of this encounter Visit Diagnoses Not on filedocumented in this encounter Care Teams Entry Level Mechanical Engineer Relationship Specialty Start Date End Date Manav Rose MD [address] [place] [address] [email or web address] PCP - General Family Medicine 12/22/23 documented as of this encounter Additional Source Comments The information contained in this document represents components of the legal health record. It is not the complete legal health record.[facility]
--- OUTSIDE RECORDS SUMMARY | 2025-04-13 16:35 | XMS_ITS | Encounter Summary ---
Author Organization [facility] Address [address] [place] [address] Phone Care Team Providers Care Switchboard Wire Worker Helper Name Role Phone Bernadine Rose Primary Care Provider [phone] Encounter Details Date Type Department Care Team (Late st Contact Info) Description 09/03/2023 Documentation Only [facility], [address] [place] [phone] Linda Wagner [address] [place] [phone] Social History Tobacco Use Types Packs/Day Years [...] on filedocumented in this encounter Care Teams Switchboard Wire Worker Helper Relationship Specialty Start Date End Date Bernadine Rose PA 70 [place] [address] PCP - General Physician Backwinder 08/07/23 documented as of this encounter
--- OUTSIDE RECORDS SUMMARY | 2025-04-13 16:35 | XMS_ITS | Clinical Summary ---
Author Organization [facility] Address [address] [place] [address] Care Team Providers Care Lead Scientist Name Role Phone Unavailable Primary Care Provider [...]
== END 2025-04-13 16:48 | disposition home or self-care (01) ==
LOC: HO.RHES 15:57
PROVIDERS: PCP Family Medicine; Visit Provider Student in an Organized Health Care Education/Training Program
DX: L40.50 Arthropathic psoriasis, unspecified (principal); M18.0 Bilateral primary osteoarthritis of first carpometacarpal joints; M77.11 Lateral epicondylitis, right elbow; L40.9 Psoriasis, unspecified; Z79.620 Long term (current) use of immunosuppressive biologic; Z79.61 Long term (current) use of immunomodulator
CPT/HCPCS: 99214